=== PATIENT | male | born 1940 | race Caucasian/White ===

== ENCOUNTER 2022-04-06 12:22 | Observation (INO) ==
[2022-04-06] MEDS: SODIUM CHLORIDE 0.9% 1000ML 1,000 ML IV SCH ×2 (13:04→16:59)
[2022-04-06] MEDS ORDERED: ONDANSETRON INJ 2 MG/ML 2 ML VIAL IV STA (13:06)
[2022-04-06 13:13] LABS: Basophils # (auto) 0.02 K/uL (0-0.2); Basophils % (auto) 0.2 %; Eosinophils # (auto) 0.03 K/uL (0-0.50); Eosinophils % (auto) 0.3 %; Hematocrit (blood only) 37.7 % (40.1-51.0); Hemoglobin 13.1 g/dl (14.0-18.0); Immature Granulocytes # (auto) 0.04 K/uL (0.00-0.02); Immature Granulocytes % (auto) 0.4 %; Lymphocytes # (auto) 0.62 K/uL (1.2-3.4); Lymphocytes % (auto) 6.6 %; Mean Corpuscular Hemoglobin 38.2 pg (25.0-34.0); Mean Corpuscular Hgb Conc 34.7 g/dL (32.0-36.0); Mean Corpuscular Volume 109.9 fL (80.0-100.0); Monocytes # (auto) 0.36 K/uL (0.24-0.82); Monocytes % (auto) 3.9 %; Neutrophils # (auto) 8.27 K/uL (1.4-6.5); Neutrophils % (auto) 88.6 %; Platelet Count 193 K/uL (130-400); RDW Coefficient of Variation 14.1 % (11.5-14.5); RDW Standard Deviation 57.3 fL (36.4-46.3); Red Blood Count 3.43 M/uL (4.63-6.08); White Blood Count 9.34 K/ul (4.8-10.8)
--- NOTE | 2022-04-06 13:25 | XRay Report ---
XR chest 1V portable HISTORY: weakness COMPARISON: None. FINDINGS: No pneumothorax. No pleural effusions. The cardiac silhouette is top normal in size. There is a right jugular Port-A-Cath which terminates in the SVC. The right lung is clear. No focal lung co nsolidations to suggest a pneumonia. No evidence for pulmonary edema. Small linear scarlike density n oted within the left midlung zone. Symmetric nodular densities within the lower lung zones are consis tent with nipple shadows. IMPRESSION: No acute process. ACT 112: Negative or not required by law. Electronically signed by: Tuan Roque M.D. 04/06/2022 1:24 PM
[2022-04-06 13:35] LABS: Alanine Aminotransferase 31 U/L (7-52); Albumin Globulin Ratio 1.2 (0.9-2); Albumin Level 3.6 gm/dl (3.4-5.0); Alkaline Phosphatase 123 U/L (34-104); Anion Gap 12 (3-11); Aspartate Aminotransferase 25 U/L (13-39); BUN Creatinine Ratio 14.6 (10-20); Bilirubin,Total 0.8 mg/dl (0.2-1.0); Blood Urea Nitrogen 12 mg/dl (6-23); Calcium 8.8 mg/dl (8.5-10.1); Carbon Dioxide 24 mmol/L (21-32); Chloride 105 mmol/L (98-107); Est GFR (African American) 95.4 ml/min; Est GFR (Non-African American) 82.4 ml/min; Globulin 2.9 gm/dl (2.5-4.0); Glucose 247 mg/dl (70-99(Fasting)); Potassium 3.4 mmol/L (3.5-5.1); Sodium 141 mmol/L (136-145); Total Protein 6.5 gm/dl (6.0-8.3)
[2022-04-06 13:38] LABS: Troponin I High Sensitivity 19.1 pg/ml (0-20)
[2022-04-06] MEDS ORDERED: MECLIZINE HCL 25 MG TAB PO STA (13:44)
[2022-04-06] MEDS ORDERED: MIDAZOLAM HCL 1 MG/ML 2ML VIAL IV STA (13:44)
[2022-04-06 13:50] LABS: Influenza A virus by PCR Negative (Neg); Influenza B virus by PCR Negative (Neg); RSV by PCR Negative (Neg); SARS CoV2 RNA(COVID-19) Ceph NEGATIVE (Negative)
[2022-04-06] MEDS ORDERED: OPTIRAY 320 500ml IV ONE (14:05)
--- NOTE | 2022-04-06 14:29 | CT Scan Report ---
HEAD & NECK CTA HISTORY: vertigo, dizziness, ? stroke. hx of colon ca TECHNIQUE: Multiaxial CT images of the head were performed both before and after the intravenous admi nistration of contrast to evaluate the major cerebral vessels. Multiaxial CT images of the neck were also performed following the intravenous administration of contrast to evaluate the major cervical ve ssels. Maximum intensity projection images were also obtained. A dose lowering technique was utilized adhering to the principles of ALARA. COMPARISON: None. FINDINGS: Head CT: There is no mass, hematoma, midline shift, or acute infarct. Mucosal thickening and a small fluid level within the left maxillary sinus resulting in near complete opacification. Small fluid lev els within the sphenoid sinuses. The mastoid air cells are clear. The calvarium and skull base are in tact. Head CTA: Visualized intracranial internal carotid arteries, distal vertebral arteries, and basilar a rtery are widely patent. There is no significant stenosis, occlusion, or aneurysm seen within the carmen ateral ACAs, MCAs, or aerospace products sales engineer. The major dural venous sinuses appear patent. Neck CTA: The aortic arch and proximal great vessels are widely patent. There is no significant sten osis, occlusion, or dissection identified within the bilateral common carotid, internal carotid, or v ertebral arteries. Scattered irregular nodule seen within the lung apices some which demonstrate cent ral cavitation. Dominant nodule within the left upper lobe measures 12 mm. This favors metastatic dis ease. No pneumothorax. Partially visualized right jugular Port-A-Cath is noted. Mild calcified plaque within the bilateral carotid bifurcations. IMPRESSION: 1. No significant stenosis, occlusion, or aneurysm within the [place]. 2. No significant stenosis, occlusion, or dissection identified within the carotid or vertebral arter ies. 3. No abnormal enhancement or intracranial masses identified. 4. Paranasal sinus disease as described above. 5. Multiple pulmonary nodules likely consistent with metastatic disease. ACT 112: Negative or not required by law. Electronically signed by: Tuan Roque M.D. 04/06/2022 2:27 PM
--- NOTE | 2022-04-06 14:29 | CT Scan Report ---
HEAD & NECK CTA HISTORY: vertigo, dizziness, ? stroke. hx of colon ca TECHNIQUE: Multiaxial CT images of the head were performed both before and after the intravenous admi nistration of contrast to evaluate the major cerebral vessels. Multiaxial CT images of the neck were also performed following the intravenous administration of contrast to evaluate the major cervical ve ssels. Maximum intensity projection images were also obtained. A dose lowering technique was utilized adhering to the principles of ALARA. COMPARISON: None. FINDINGS: Head CT: There is no mass, hematoma, midline shift, or acute infarct. Mucosal thickening and a small fluid level within the left maxillary sinus resulting in near complete opacification. Small fluid lev els within the sphenoid sinuses. The mastoid air cells are clear. The calvarium and skull base are in tact. Head CTA: Visualized intracranial internal carotid arteries, distal vertebral arteries, and basilar a rtery are widely patent. There is no significant stenosis, occlusion, or aneurysm seen within the carmen ateral ACAs, MCAs, or offset assistant press operator. The major dural venous sinuses appear patent. Neck CTA: The aortic arch and proximal great vessels are widely patent. There is no significant sten osis, occlusion, or dissection identified within the bilateral common carotid, internal carotid, or v ertebral arteries. Scattered irregular nodule seen within the lung apices some which demonstrate cent ral cavitation. Dominant nodule within the left upper lobe measures 12 mm. This favors metastatic dis ease. No pneumothorax. Partially visualized right jugular Port-A-Cath is noted. Mild calcified plaque within the bilateral carotid bifurcations. IMPRESSION: 1. No significant stenosis, occlusion, or aneurysm within the [place]. 2. No significant stenosis, occlusion, or dissection identified within the carotid or vertebral arter ies. 3. No abnormal enhancement or intracranial masses identified. 4. Paranasal sinus disease as described above. 5. Multiple pulmonary nodules likely consistent with metastatic disease. ACT 112: Negative or not required by law. Electronically signed by: Tuan Roque M.D. 04/06/2022 2:27 PM
[2022-04-06 14:50] LABS: Appearance Urine Clear (Clear); Bacteria Urine Automated Negative (Negative); Bilirubin Urine Negative (Negative); Blood Urine Negative (Negative); Cast Urine Automated 0 /lpf (0-5); Color Urine Yellow; Epithelial Cell Urine Auto 0-5 /lpf (0-5); Glucose Urine UA 3+ (Negative); Ketones Urine Trace (Negative); Leukocyte Esterase Urine Negative (Negative); Nitrite Urine Negative (Negative); Protein Urine Trace (Negative); RBC Urine Automated 0-4 /hpf (0-4); Specific Gravity Urine 1.019 (1.000-1.030); Urobilinogen Urine Negative (Negative); WBC Urine Automated 0 /hpf (0-5)
--- NOTE | 2022-04-06 15:08 | History & Physical Report ---
Date of Service April 06, 2022 Assessment & Plan (1) Dizziness: Plan: Patient presents with dizziness without vertiginous component however he has abnormal cardiac rhythm during the events here in the ER. He dizziness did improve with meclizine and midazolam. (2) Cardiac conduction disorder: Plan: Patient has an abnormal EKG which gives flavors of Mobitz 2. Given the fact that dizziness is initial event patient be observed in our facility with cardiology consultation. TSH is checked and is normal Lyme titers pending on presentation Patient only mild hypokalemic this will be repleted magnesium will also be checked Patient is also on nifedipine which will be held. (3) Diabetes: Plan: Patient stepping on glipizide metformin and Tradjenta patient be on a regular diet by his request Home medications will be continued if glucoses are significantly out of the ordinary remains the sliding scale. 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 Patient had an apparent cardiac rhythm which looks almost like Mobitz 2 on presentation. Patient's symptoms are described as a spinning sensation that occurred after he got up out of bed. They were improved with meclizine and midazolam. Patient had imaging of his brain and neck with CT angiography without evidence of obstruction or stroke. 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 Patient is also diabetic. Patient states he is never any cardiac issues in the past denies any recent tick bites or Lyme infection Allergies Allergy/AdvReac Type Severity Reaction Status Date / Time morphine AdvReac Severe SEVERE Verified 04/06/22 15:24 CONFUSION FOLATE CONTAINING PRODUCTS AdvReac Unknown CONTRAINDICATED Uncoded 04/06/22 15:24 WITH CHEMO DRUG Home Medications Medication Instructions Recorded Confirmed Type allopurinol 300 mg tablet 150 mg PO QAM 04/06/22 04/06/22 History benzonatate 100 mg capsule 100 mg PO TID PRN Cough 04/06/22 04/06/22 History canagliflozin 100 mg tablet 100 mg PO DAILYBB 04/06/22 04/06/22 History (Invokana) glipizide 5 mg tablet, extended 5 mg PO DAILY PRN BSG >200. 04/06/22 04/06/22 History release 24 hr irbesartan 300 mg tablet 300 mg PO QAM 04/06/22 04/06/22 History linagliptin 5 mg tablet 5 mg PO QAM 04/06/22 04/06/22 History nifedipine 60 mg tablet,extended 60 mg PO QPM 04/06/22 04/06/22 History release 24 hr nystatin 100,000 unit/mL oral 5 ml PO BID 04/06/22 04/06/22 History suspension potassium chloride 20 mEq 20 meq PO QPM 04/06/22 04/06/22 History tablet,extended release(part/cryst) pravastatin 40 mg tablet 40 mg PO QPM 04/06/22 04/06/22 History Past Med/Surg History Medical History (Updated 04/06/22 @ 15:49 by Migue Morris MD) Dyslipidemia Gout Social History Smoking Status: Former smoker Tobacco Type: Cigarettes Feels Safe at Home: Yes Review of Systems Review of Systems: Mild distress and fatigue vertigo since resolved no headache, no visual changes no speech or swallowing issues no chest pain, pressure or palpitations no shortness of breath, cough or wheezes no abdominal pain, nausea or vomiting, diarrhea or constipation no dysuria, hematuria or frequency no focal joint pain or swelling no back pain, CVA tenderness or radicular pain no bruising, bleeding or rashes no focal signs of weakness or numbness or altered sensation no complaints of anxiety or depression.. Physical Exam Physical Exam: The patient appeared well nourished and normally developed. Vital signs as documented. Head exam is normocephalic atraumatic Neck is without JVD, thyromegaly, or carotid bruits. No lymphadenopathy Lungs are clear to auscultation, no focal loss of breath sounds Mediport in place at the right upper chest Cardiac exam, Rhythm is regular.. No murmurs, rubs or gallops. Abdominal exam reveals normal bowel sounds, soft non tender, no masses Extremities are nonedematous and both pedal pulses are present Neurologic exam is alert and oriented, no focal loss of strength or sensation symptoms not reproducible with sitting upright Skin is without bruises or rashes Psychologically is without concerns for anxiety or depression.. Results & Data Results & Data ([facility]) Vital Signs (Past 12 Hours) Vital Signs Pulse Resp BP Pulse Ox O2 Del Method 04/06/22 13:50 51 L 18 94 04/06/22 13:40 48 L 17 93 04/06/22 13:31 48 L 17 92 04/06/22 13:31 49 L 20 152/59 H 96 Room Air 04/06/22 13:01 48 L 14 162/63 H 96 Room Air 04/06/22 13:05 97 Room Air 04/06/22 12:23 52 L 20 139/52 L 98 Room Air Diagnostic Findings Chest X-Ray 04/06/22 12:41 XR chest 1V portable HISTORY: weakness COMPARISON: None. FINDINGS: No pneumothorax. No pleural effusions. The cardiac silhouette is top normal in size. There is a right jugular Port-A-Cath which terminates in the SVC. The right lung is clear. No focal lung consolidations to suggest a pneumonia. No evidence for pulmonary edema. Small linear scarlike density noted within the left midlung zone. Symmetric nodular densities within the lower lung zones are consistent with nipple shadows. IMPRESSION: No acute process. ACT 112: Negative or not required by law. Electronically signed by: Tuan Roque M.D. 04/06/2022 1:24 PM Head CTA 04/06/22 13:44 HEAD & NECK CTA HISTORY: vertigo, dizziness, ? stroke. hx of colon ca TECHNIQUE: Multiaxial CT images of the head were performed both before and after the intravenous administration of contrast to evaluate the major cerebral vessels. Multiaxial CT images of the neck were also performed following the intravenous administration of contrast to evaluate the major cervical vessels. Maximum intensity projection images were also obtained. A dose lowering technique was utilized adhering to the principles of ALARA. COMPARISON: None. FINDINGS: Head CT: There is no mass, hematoma, midline shift, or acute infarct. Mucosal thickening and a small fluid level within the left maxillary sinus resulting in near complete opacification. Small fluid levels within the sphenoid sinuses. The mastoid air cells are clear. The calvarium and skull base are intact. Head CTA: Visualized intracranial internal carotid arteries, distal vertebral arteries, and basilar artery are widely patent. There is no significant stenosis, occlusion, or aneurysm seen within the bilateral ACAs, MCAs, or software product manager. The major dural venous sinuses appear patent. Neck CTA: The aortic arch and proximal great vessels are widely patent. There is no significant stenosis, occlusion, or dissection identified within the bilateral common carotid, internal carotid, or vertebral arteries. Scattered irregular nodule seen within the lung apices some which demonstrate central cavitation. Dominant nodule within the left upper lobe measures 12 mm. This favors metastatic disease. No pneumothorax. Partially visualized right jugular Port-A-Cath is noted. Mild calcified plaque within the bilateral carotid bifurcations. IMPRESSION: 1. No significant stenosis, occlusion, or aneurysm within the [place]. 2. No significant stenosis, occlusion, or dissection identified within the carotid or vertebral arteries. 3. No abnormal enhancement or intracranial masses identified. 4. Paranasal sinus disease as described above. 5. Multiple pulmonary nodules likely consistent with metastatic disease. ACT 112: Negative or not required by law. Electronically signed by: Tuan Roque M.D. 04/06/2022 2:27 PM Neck CTA 04/06/22 13:44 HEAD & NECK CTA HISTORY: vertigo, dizziness, ? stroke. hx of colon ca TECHNIQUE: Multiaxial CT images of the head were performed both before and after the intravenous administration of contrast to evaluate the major cerebral vessels. Multiaxial CT images of the neck were also performed following the intravenous administration of contrast to evaluate the major cervical vessels. Maximum intensity projection images were also obtained. A dose lowering technique was utilized adhering to the principles of ALARA. COMPARISON: None. FINDINGS: Head CT: There is no mass, hematoma, midline shift, or acute infarct. Mucosal thickening and a small fluid level within the left maxillary sinus resulting in near complete opacification. Small fluid levels within the sphenoid sinuses. The mastoid air cells are clear. The calvarium and skull base are intact. Head CTA: Visualized intracranial internal carotid arteries, distal vertebral arteries, and basilar artery are widely patent. There is no significant stenosi s, occlusion, or aneurysm seen within the bilateral ACAs, MCAs, or software product manager. The major dural venous sinuses appear patent. Neck CTA: The aortic arch and proximal great vessels are widely patent. There is no significant stenosis, occlusion, or dissection identified within the bilateral common carotid, internal carotid, or vertebral arteries. Scattered irregular nodule seen within the lung apices some which demonstrate central cavitation. Dominant nodule within the left upper lobe measures 12 mm. This favors metastatic disease. No pneumothorax. Partially visualized right jugular Port-A-Cath is noted. Mild calcified plaque within the bilateral carotid bifurcations. IMPRESSION: 1. No significant stenosis, occlusion, or aneurysm within the [place]. 2. No significant stenosis, occlusion, or dissection identified within the carotid or vertebral arteries. 3. No abnormal enhancement or intracranial masses identified. 4. Paranasal sinus disease as described above. 5. Multiple pulmonary nodules likely consistent with metastatic disease. ACT 112: Negative or not required by law. Electronically signed by: Tuan Roque M.D. 04/06/2022 2:27 PM ECG Additional Comments: Abnormal EKG with hints of [place] PG Care Time/CCT Total # of Minutes Spent Total Time Spent with Patient: Total time spent is greater than 50% in coordination of care (as documented) at patient's floor/unit and/or counseling patient: Coding Level of Care Code INT OBSERVATION CARE 70M LVL 3 Diagnoses Dizziness R42 Cardiac conduction disorder I45.9 Diabetes E11.9 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 C18.9; C78.00 Hypertension I10 Gout M10.9 Dyslipidemia E78.5
--- NOTE | 2022-04-06 15:30 | Emergency Department Note ---
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 On presentation he was noted to be significantly bradycardic with heart rates dipping down to the 30s. His ECG showed a sinus rhythm with at least a first- degree AV block. There was frequent ectopy and determination between a possible second or third-degree block was difficult. Cardiac monitoring did reveal periods of PVC runs up to about 9 beats. Underlying P waves were noted but not coordinated. Patient was hydrated and given Zofran. His CBC was unremarkable except for a mild anemia. Chemistry panel, troponin or also unremarkable except for a mildly elevated glucose. Chest x-ray was negative. COVID, flu, and RSV testing were negative. Due to the symptoms the patient was given oral meclizine as well as a dose of IV Versed. He was sent for CT angiography and CT imaging of the head and neck. He did not have any findings consistent with vessel occlusion, stroke, or metastatic disease with in the head. Metastatic disease was seen in the chest but this is a known problem for him. Patient was noted to have some sinus disease but was asymptomatic with that. On reassessment his dizziness and nausea were improved. He had less frequent issues with the bradycardia. I did review his case with Dr. Bo of cardiology. He agreed that the ECG was difficult to determine but felt that there was an underlying conduction disorder present. I suspect that this may be exacerbated by vagal response secondary to the nausea and severe dizziness. He felt that that was reasonable as well. He recommended monitoring in the hospital to further inv estigate the cardiac conduction. Consultation was placed with the [facility] hospitalist service. History, presentation, diagnostics and consultation with cardiology reviewed with Dr. Morris. Patient was evaluated in the ER for further management. After review of the information above and other included data, I feel the patient requires further evaluation in the hospital. Triage Nursing notes reviewed and agree them. Vital Signs: reviewed and remarkable for bradycardia Prior /Outside records reviewed: none Differential diagnosis: Benign positional vertigo, dehydration, hypovolemia, anemia, tumor, infection, hypoglycemia, electrolyte abnormalities, cardiac sources, intracerebral event, toxicologic, neurologic, as well as other pathologies. Diagnostics, as interpreted by me: ECG: Twelve-lead ECG reveals sinus bradycardia first-degree block and frequent PVCs and PACs at 57 bpm. Possible second-degree versus transient third-degree block. Cardiac Monitoring: Cardiac monitoring ordered by me: The patient was placed on continuous cardiac monitoring and observed. It revealed sinus bradycardia with runs of consecutive PVCs and occasional heart block. Medical decision rules: none Imaging studies: Chest x-ray. Findings: A chest x-ray was performed and revealed no pneumothorax, effusion, infiltrate, pulmonary edema, free air under the diaphragm, or wide mediastinum. Impression: No acute disease. Head CT and CT chest as above. I refer you to the EMR for further details. HPI: The patient is a 81year old male who presents to the Emergency Room with complaints of feeling weak and dizzy. This started this morning and is persisting. The patient also notes the following associated symptoms, nausea and vomiting. The patient has found no relieving factors. Current pain is rated as 0/10. Patient has a history of metastatic colon cancer to the lungs. Denies any recent trauma. No sick contacts. Last chemo was 2 weeks ago. Pt denies LOC, headache, fevers, chills, diaphoresis, visual changes, neck pain, chest pain, breathing difficulties, abdominal pain, back pain, melena, hematoch ezia, urinary symptoms, numbness, lymphadenopathy, rash, or other complaints. PAST MEDICAL HISTORY: See Below, colon cancer PAST SURGICAL HISTORY: See Below, Mediport SOCIAL HISTORY: See Below, HOME MEDICATIONS: See Below ALLERGIES: See Below VITALS: See Below PHYSICAL EXAMINATION: GENERAL: Awake, alert, well-appearing, in no distress HENT: Normocephalic, atraumatic. Oropharynx unremarkable. EYES: Normal conjunctiva. Sclera non-icteric. NECK: Inspection normal. Non-tender. Supple. No nuchal rigidity. FROM. No masses. RESPIRATORY: Clear to auscultation. No wheezes. No rales. Normal respiratory effort. CARDIAC: Normal rate. Normal rhythm. No murmurs. No rubs. Extremities warm and well perfused. Pulses equal. No JVD. GI: Soft, non-distended. No tenderness to palpation. No rebound or guarding. No masses. RECTAL: Deferred. MUSCULOSKELETAL: Atraumatic. Chest examination reveals no tenderness. The back is symmetrical on inspection without obvious abnormality. There is no CVA tenderness to palpation. No joint edema. LOWER EXTREMITIES: Calves are equal size bilaterally and non-tender. No edema. No discoloration. NEURO: Normal sensorium. No sensory or motor deficits noted. SKIN: No rash or jaundice noted. Past Med/Surg History Medical History (Updated 04/06/22 @ 15:49 by Migue Morris MD) Dyslipidemia Gout Social History Smoking Status: Former smoker Tobacco Type: Cigarettes Hx Alcohol Use: No Hx Substance Use: No Preferred Language: Syriac Communication Ability: Effective Kitchen Steward/Stewardess Required: No Beliefs That Will Affect Care: None Current Living Situation: Spouse Other Information That Helps Us Care for You: No Feels Safe at Home: Yes Safety Concerns: Feels Safe At This Time Assistive Devices: CPAP and Glasses Allergies Allergies Allergy/AdvReac Type Severity Reaction Status Date / Time morphine AdvReac Severe SEVERE Verified 04/06/22 15:24 CONFUSION FOLATE CONTAINING PRODUCTS AdvReac Unknown CONTRAINDICATED Uncoded 04/06/22 15:24 WITH CHEMO DRUG Home Meds Home Medications Medication Instructions Recorded Confirmed allopurinol 300 mg tablet 150 mg PO QAM 04/06/22 04/06/22 benzonatate 100 mg capsule 100 mg PO TID PRN Cough 04/06/22 04/06/22 canagliflozin 100 mg tablet 100 mg PO DAILYBB 04/06/22 04/06/22 (Invokana) glipizide 5 mg tablet, extended 5 mg PO DAILY PRN BSG >200. 04/06/22 04/06/22 release 24 hr irbesartan 300 mg tablet 300 mg PO QAM 04/06/22 04/06/22 linagliptin 5 mg tablet 5 mg PO QAM 04/06/22 04/06/22 nifedipine 60 mg tablet,extended 60 mg PO QPM 04/06/22 04/06/22 release 24 hr nystatin 100,000 unit/mL oral 5 ml PO BID 04/06/22 04/06/22 suspension potassium chloride 20 mEq 20 meq PO QPM 04/06/22 04/06/22 tablet,extended release(part/cryst) pravastatin 40 mg tablet 40 mg PO QPM 04/06/22 04/06/22 Results & Data (ED) Vital Signs Vital Signs - 24 hr 04/06/22 12:23 04/06/22 13:05 04/06/22 13:01 Pulse Rate 52 L 48 L Pulse Rate from SpO2 Sensor Respiratory Rate 20 14 Blood Pressure 139/52 L 162/63 H Blood Pressure Mean 81 96 Pulse Oximetry 98 97 96 Oxygen Delivery Method Room Air Room Air Room Air Sepsis Recent Fever Within 48 Hours No Sepsis New/Unexplained Change in Mental Status N/A Sepsis Action Taken by Nursing No Action Required 04/06/22 13:31 04/06/22 13:31 04/06/22 13:40 Pulse Rate 49 L 48 L 48 L Pulse Rate from SpO2 Sensor 49 L 49 L Respiratory Rate 20 17 17 Blood Pressure 152/59 H Blood Pressure Mean 90 Pulse Oximetry 96 92 93 Oxygen Delivery Method Room Air Sepsis Recent Fever Within 48 Hours Sepsis New/Unexplained Change in Mental Status Sepsis Action Taken by Nursing 04/06/22 13:50 04/06/22 14:31 04/06/22 15:01 Pulse Rate 51 L 47 L 52 L Pulse Rate from SpO2 Sensor 53 L Respiratory Rate 18 16 18 Blood Pressure 136/67 168/71 H Blood Pressure Mean 90 103 Pulse Oximetry 94 93 96 Oxygen Delivery Method Room Air Room Air Sepsis Recent Fever Within 48 Hours Sepsis New/Unexplained Change in Mental Status Sepsis Action Taken by Nursing Laboratory Data Result diagrams: 04/06/22 13:00 04/06/22 13:00 Lab Results 04/06/22 04/06/22 04/06/22 Range/Units 12:27 12:50 13:00 WBC 9.34 (4.8-10.8) K/ul RBC 3.43 L (4.63-6.08) M/uL Hgb 13.1 L (14.0-18.0) g/dl Hct 37.7 L (40.1-51.0) % MCV 109.9 H (80.0-100.0) fL MCH 38.2 H (25.0-34.0) pg MCHC 34.7 (32.0-36.0) g/dL RDW Std Deviation 57.3 H (36.4-46.3) fL RDW Coeff of [place]bin 14.1 (11.5-14.5) % Plt Count 193 (130-400) K/uL MPV 10.0 (9.4-12.4) fL Immature Gran % (Auto) 0.4 % Neut % (Auto) 88.6 % Lymph % (Auto) 6.6 % [place] % (Auto) 3.9 % Eos % (Auto) 0.3 % Baso % (Auto) 0.2 % Neut # (Auto) 8.27 H (1.4-6.5) K/uL Lymph # (Auto) 0.62 L (1.2-3.4) K/uL [place] # (Auto) 0.36 (0.24-0.82) K/uL Eos # (Auto) 0.03 (0-0.50) K/uL Baso # (Auto) 0.02 (0-0.2) K/uL Immature Gran # (Auto) 0.04 H (0.00-0.02) K/uL Sodium (136-145) mmol/L Potassium (3.5-5.1) mmol/L Chloride (98-107) mmol/L Carbon Dioxide (21-32) mmol/L Anion Gap (3-11) BUN (6-23) mg/dl Creatinine (0.6-1.4) mg/dl Est Cr Clr Drug Dosing Est GFR ( Amer) ml/min Est GFR (Non-Af Amer) ml/min BUN/Creatinine Ratio (10-20) Glucose (70-99(Fasting)) mg/dl POC Glucose 221 H (70-99) mg/dl Calcium (8.5-10.1) mg/dl Magnesium (1.7-2.4) mg/dl Total Bilirubin (0.2-1.0) mg/dl AST (13-39) U/L ALT (7-52) U/L Alkaline Phosphatase (34-104) U/L Troponin I High Sens (0-20) pg/ml Total Protein (6.0-8.3) gm/dl Albumin (3.4-5.0) gm/dl Globulin (2.5-4.0) gm/dl Albumin/Globulin Ratio (0.9-2) TSH (0.300-4.500) uIu/ml Urine Color Urine Appearance (Clear) Urine pH (4.5-7.5) Ur Specific [place]rill (1.000-1.030) Urine Protein (Negative) Urine Glucose (UA) (Negative) Urine Ketones (Negative) Urine Blood (Negative) Urine Nitrite (Negative) Urine Bilirubin (Negative) Urine Urobilinogen (Negative) Ur Leukocyte Esterase (Negative) Urine WBC (Auto) (0-5) /hpf Urine RBC (Auto) (0-4) /hpf U Hyaline Cast (Auto) (0-5) /lpf U Epithel Cells (Auto) (0-5) /lpf Urine Bacteria (Auto) (Negative) SARS-CoV-2 (PCR) NEGATIVE (Negative) Influenza Type A (PCR) Negative (Neg) Influenza Type B (PCR) Negative (Neg) RSV (RT-PCR) Negative (Neg) 04/06/22 04/06/22 04/06/22 Range/Units 13:00 13:00 13:00 WBC (4.8-10.8) K/ul RBC (4.63-6.08) M/uL Hgb (14.0-18.0) g/dl Hct (40.1-51.0) % MCV (80.0-100.0) fL MCH (25.0-34.0) pg MCHC (32.0-36.0) g/dL RDW Std Deviation (36.4-46.3) fL RDW Coeff of Corbin (11.5-14.5) % Plt Count (130-400) K/uL MPV (9.4-12.4) fL Immature Gran % (Auto) % Neut % (Auto) % Lymph % (Auto) % [place] % (Auto) % Eos % (Auto) % Baso % (Auto) % Neut # (Auto) (1.4-6.5) K/uL Lymph # (Auto) (1.2-3.4) K/uL [place] # (Auto) (0.24-0.82) K/uL Eos # (Auto) (0-0.50) K/uL Baso # (Auto) (0-0.2) K/uL Immature Gran # (Auto) (0.00-0.02) K/uL Sodium 141 (136-145) mmol/L Potassium 3.4 L (3.5-5.1) mmol/L Chloride 105 (98-107) mmol/L Carbon Dioxide 24 (21-32) mmol/L Anion Gap 12 H (3-11) BUN 12 (6-23) mg/dl Creatinine 0.82 (0.6-1.4) mg/dl Est Cr Clr Drug Dosing Not Reportable Est GFR ( Amer) 95.4 ml/min Est GFR (Non-Af Amer) 82.4 ml/min BUN/Creatinine Ratio 14.6 (10-20) Glucose 247 H (70-99(Fasting)) mg/dl POC Glucose (70-99) mg/dl Calcium 8.8 (8.5-10.1) mg/dl Magnesium 1.9 (1.7-2.4) mg/dl Total Bilirubin 0.8 (0.2-1.0) mg/dl AST 25 (13-39) U/L ALT 31 (7-52) U/L Alkaline Phosphatase 123 H (34-104) U/L Troponin I High Sens 19.1 (0-20) pg/ml Total Protein 6.5 (6.0-8.3) gm/dl Albumin 3.6 (3.4-5.0) gm/dl Globulin 2.9 (2.5-4.0) gm/dl Albumin/Globulin Ratio 1.2 (0.9-2) TSH 1.914 (0.300-4.500) uIu/ml Urine Color Urine Appearance (Clear) Urine pH (4.5-7.5) Ur Specific Sherrill (1.000-1.030) Urine Protein (Negative) Urine Glucose (UA) (Negative) Urine Ketones (Negative) Urine Blood (Negative) Urine Nitrite (Negative) Urine Bilirubin (Negative) Urine Urobilinogen (Negative) Ur Leukocyte Esterase (Negative) Urine WBC (Auto) (0-5) /hpf Urine RBC (Auto) (0-4) /hpf U Hyaline Cast (Auto) (0-5) /lpf U Epithel Cells (Auto) (0-5) /lpf Urine Bacteria (Auto) (Negative) SARS-CoV-2 (PCR) (Negative) Influenza Type A (PCR) (Neg) Influenza Type B (PCR) (Neg) RSV (RT-PCR) (Neg) 04/06/22 Range/Units 14:05 WBC (4.8-10.8) K/ul RBC (4.63-6.08) M/uL Hgb (14.0-18.0) g/dl Hct (40.1-51.0) % MCV (80.0-100.0) fL MCH (25.0-34.0) pg MCHC (32.0-36.0) g/dL RDW Std Deviation (36.4-46.3) fL RDW Coeff of Corbin (11.5-14.5) % Plt Count (130-400) K/uL MPV (9.4-12.4) fL Immature Gran % (Auto) % Neut % (Auto) % Lymph % (Auto) % [place] % (Auto) % Eos % (Auto) % Baso % (Auto) % Neut # (Auto) (1.4-6.5) K/uL Lymph # (Auto) (1.2-3.4) K/uL [place] # (Auto) (0.24-0.82) K/uL Eos # (Auto) (0-0.50) K/uL Baso # (Auto) (0-0.2) K/uL Immature Gran # (Auto) (0.00-0.02) K/uL Sodium (136-145) mmol/L Potassium (3.5-5.1) mmol/L Chloride (98-107) mmol/L Carbon Dioxide (21-32) mmol/L Anion Gap (3-11) BUN (6-23) mg/dl Creatinine (0.6-1.4) mg/dl Est Cr Clr Drug Dosing Est GFR ( Amer) ml/min Est GFR (Non-Af Amer) ml/min BUN/Creatinine Ratio (10-20) Glucose (70-99(Fasting)) mg/dl POC Glucose (70-99) mg/dl Calcium (8.5-10.1) mg/dl Magnesium (1.7-2.4) mg/dl Total Bilirubin (0.2-1.0) mg/dl AST (13-39) U/L ALT (7-52) U/L Alkaline Phosphatase (34-104) U/L Troponin I High Sens (0-20) pg/ml Total Protein (6.0-8.3) gm/dl Albumin (3.4-5.0) gm/dl Globulin (2.5-4.0) gm/dl Albumin/Globulin Ratio (0.9-2) TSH (0.300-4.500) uIu/ml Urine Color Yellow Urine Appearance Clear (Clear) Urine pH 6.0 (4.5-7.5) Ur Specific Sherrill 1.019 (1.000-1.030) Urine Protein Trace H (Negative) Urine Glucose (UA) 3+ H (Negative) Urine Ketones Trace H (Negative) Urine Blood Negative (Negative) Urine Nitrite Negative (Negative) Urine Bilirubin Negative (Negative) Urine Urobilinogen Negative (Negative) Ur Leukocyte Esterase Negative (Negative) Urine WBC (Auto) 0 (0-5) /hpf Urine RBC (Auto) 0-4 (0-4) /hpf U Hyaline Cast (Auto) 0 (0-5) /lpf U Epithel Cells (Auto) 0-5 (0-5) /lpf Urine Bacteria (Auto) Negative (Negative) SARS-CoV-2 (PCR) (Negative) Influenza Type A (PCR) (Neg) Influenza Type B (PCR) (Neg) RSV (RT-PCR) (Neg) Administered Medications Enoxaparin Sodium (Enoxaparin Inj 40 Mg/0.4 Ml Syr) 40 mg SQ Q24H [facility] Stop: 05/06/22 16:29 Last Admin: 04/06/22 18:04 Dose: Not Given Documented By: MATHEW Sodium Chloride (Nss 1000ml) 1,000 mls @ 125 mls/hr IV .Q8H [facility] Stop: 05/06/22 12:44 Last Admin: 04/06/22 16:59 Dose: 125 mls/hr Documented By: Infusion: 04/06/22 16:59 Dose: 125 mls/hr Documented By: Admin: 04/06/22 13:04 Dose: 125 mls/hr Documented By: EMMIE Discontinued Medications Ioversol (Optiray 320 500ml) 114 ml IV ONCE ONE Stop: 04/06/22 14:06 Last Admin: 04/06/22 14:06 Dose: 114 ml Documented By: DULCE Meclizine HCl (Meclizine Hcl 25 Mg Tab) 25 mg PO NOW STA Stop: 04/06/22 13:45 Last Admin: 04/06/22 13:55 Dose: 25 mg Documented By: EMMIE Midazolam HCl (Midazolam Hcl 1 Mg/Ml 2ml Vial) 1 mg IV NOW STA Stop: 04/06/22 13:45 Last Admin: 04/06/22 14:00 Dose: Not Given Documented By: MMZ Ondansetron HCl (Ondansetron Inj 2 Mg/Ml 2 Ml Vial) 4 mg IV NOW STA Stop: 04/06/22 13:07 Last Admin: 04/06/22 13:11 Dose: 4 mg Documented By: NDW Potassium Chloride (Potassium Chloride Crtab 20 Meq Tabcr) 20 meq PO NOW STA Stop: 04/06/22 16:31 Last Admin: 04/06/22 16:59 Dose: 20 meq Documented By: [facility] Imaging Data Radiologist's Impression: Chest X-Ray 04/06/22 12:41 XR chest 1V portable HISTORY: weakness COMPARISON: None. FINDINGS: No pneumothorax. No pleural effusions. The cardiac silhouette is top normal in size. There is a right jugular Port-A-Cath which terminates in the SVC. The right lung is clear. No focal lung consolidations to suggest a pneumonia. No evidence for pulmonary edema. Small linear scarlike density noted within the left midlung zone. Symmetric nodular densities within the lower lung zones are consistent with nipple shadows. IMPRESSION: No acute process. ACT 112: Negative or not required by law. Electronically signed by: Tuan Roque M.D. 04/06/2022 1:24 PM Head CTA 04/06/22 13:44 HEAD & NECK CTA HISTORY: vertigo, dizziness, ? stroke. hx of colon ca TECHNIQUE: Multiaxial CT images of the head were performed both before and after the intravenous administration of contrast to evaluate the major cerebral vessels. Multiaxial CT images of the neck were also performed following the intravenous administration of contrast to evaluate the major cervical vessels. Maximum intensity projection images were also obtained. A dose lowering technique was utilized adhering to the principles of ALARA. COMPARISON: None. FINDINGS: Head CT: There is no mass, hematoma, midline shift, or acute infarct. Mucosal thickening and a small fluid level within the left maxillary sinus resulting in near complete opacification. Small fluid levels within the sphenoid sinuses. The mastoid air cells are clear. The calvarium and skull base are intact. Head CTA: Visualized intracranial internal carotid arteries, distal vertebral arteries, and basilar artery are widely patent. There is no significant stenosis, occlusion, or aneurysm seen within the bilateral ACAs, MCAs, or glue wheel operator. The major dural venous sinuses appear patent. Neck CTA: The aortic arch and proximal great vessels are widely patent. There is no significant stenosis, occlusion, or dissection identified within the bilateral common carotid, internal carotid, or vertebral arteries. Scattered irregular nodule seen within the lung apices some which demonstrate central cavitation. Dominant nodule within the left upper lobe measures 12 mm. This favors metastatic disease. No pneumothorax. Partially visualized right jugular Port-A-Cath is noted. Mild calcified plaque within the bilateral carotid bifurcations. IMPRESSION: 1. No significant stenosis, occlusion, or aneurysm within the [place] of [place]. 2. No significant stenosis, occlusion, or dissection identified within the carotid or vertebral arteries. 3. No abnormal enhancement or intracranial masses identified. 4. Paranasal sinus disease as described above. 5. Multiple pulmonary nodules likely consistent with metastatic disease. ACT 112: Negative or not required by law. Electronically signed by: Tuan Roque M.D. 04/06/2022 2:27 PM Neck CTA 04/06/22 13:44 HEAD & NECK CTA HISTORY: vertigo, dizziness, ? stroke. hx of colon ca TECHNIQUE: Multiaxial CT images of the head were performed both before and after the intravenous administration of contrast to evaluate the major cerebral vessels. Multiaxial CT images of the neck were also performed following the intravenous administration of contrast to evaluate the major cervical vessels. Maximum intensity projection images were also obtained. A dose lowering technique was utilized adhering to the principles of ALARA. COMPARISON: None. FINDINGS: Head CT: There is no mass, hematoma, midline shift, or acute infarct. Mucosal thickening and a small fluid level within the left maxillary sinus resulting in near complete opacification. Small fluid levels within the sphenoid sinuses. The mastoid air cells are clear. The calvarium and skull base are intact. Head CTA: Visualized intracranial internal carotid arteries, distal vertebral arteries, and basilar artery are widely patent. There is no significant stenosis, occlusion, or aneurysm seen within the bilateral ACAs, MCAs, or glue wheel operator. The major dural venous sinuses appear patent. Neck CTA: The aortic arch and proximal great vessels are widely patent. There is no significant stenosis, occlusion, or dissection identified within the bilateral common carotid, internal carotid, or vertebral arteries. Scattered irregular nodule seen within the lung apices some which demonstrate central cavitation. Dominant nodule within the left upper lobe measures 12 mm. This favors metastatic disease. No pneumothorax. Partially visualized right jugular Port-A-Cath is noted. Mild calcified plaque within the bilateral carotid bifurcations. IMPRESSION: 1. No significant stenosis, occlusion, or aneurysm within the [place] of [place]. 2. No significant stenosis, occlusion, or dissection identified within the carotid or vertebral arteries. 3. No abnormal enhancement or intracranial masses identified. 4. Paranasal sinus disease as described above. 5. Multiple pulmonary nodules likely consistent with metastatic disease. ACT 112: Negative or not required by law. Electronically signed by: Tuan Roque M.D. 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
[2022-04-06] MEDS ORDERED: POTASSIUM CHLORIDE CRTAB 20 MEQ TABCR PO STA (16:30)
[2022-04-06] MEDS ORDERED: LORazepam 2 MG/1 ML VIAL IV PRN (16:30)
[2022-04-06] MEDS ORDERED: ENOXAPARIN INJ 40 MG/0.4 ML SYR SQ SCH (16:30)
[2022-04-06] MEDS ORDERED: ACETAMINOPHEN 325 MG TAB PO PRN (16:30)
[2022-04-06] MEDS ORDERED: glipiZIDE ER 2.5 MG TABCR PO PRN (16:30)
[2022-04-06] MEDS ORDERED: ALUMINUM/MAGNESIUM SUSP 30 ML UDC PO PRN (16:30)
[2022-04-06] MEDS ORDERED: ONDANSETRON INJ 2 MG/ML 2 ML VIAL IV PRN (16:30)
[2022-04-06] MEDS ORDERED: MECLIZINE HCL 25 MG TAB PO PRN (16:30)
[2022-04-06 17:58] LABS: Lyme Ab IgG w/WB Rflx Negative (Negative); Lyme Ab IgM w/WB Rflx Negative (Negative)
[2022-04-06] MEDS: POTASSIUM CHLORIDE CRTAB 20 MEQ TABCR PO SCH (19:44)
[2022-04-06] MEDS ORDERED: PRAVASTATIN SOD 40 MG TAB PO SCH (21:00)
[2022-04-07] MEDS: SODIUM CHLORIDE 0.9% 1000ML 1,000 ML IV SCH (00:28)
[2022-04-07] MEDS ORDERED: HEPARIN 100 UNIT/ML 5ML FLUSH FLUSH PRN (02:53)
[2022-04-07 08:34] LABS: Estimated Average Glucose 154 mg/dl
[2022-04-07] MEDS ORDERED: LINAGLIPTIN 5 MG PO SCH (09:00)
[2022-04-07] MEDS ORDERED: NIFEdipine EXTENDED REL 30 MG TABCR PO SCH (09:00)
[2022-04-07] MEDS ORDERED: allopurinoL 300 MG TAB PO SCH (09:00)
[2022-04-07] MEDS ORDERED: IRBESARTAN 150 MG TAB PO SCH (09:00)
[2022-04-07] MEDS ORDERED: MECLIZINE 12.5 MG TAB PO SCH (09:00)
[2022-04-07] MEDS: POTASSIUM CHLORIDE CRTAB 20 MEQ TABCR PO SCH (10:07)
--- NOTE | 2022-04-07 11:02 | XCELERA ---
[id number]
--- NOTE | 2022-04-07 11:02 | Discharge Summary ---
Date of Service April 07, 2022 Admission HPI Per Admitting Provider 81-year-old male who is here visiting his family who presents with vertiginous symptoms and weakness. Patient had an apparent cardiac rhythm which looks almost like Mobitz 2 on presentation. Patient's symptoms are described as a spinning sensation that occurred after he got up out of bed. They were improved with meclizine and midazolam. Patient had imaging of his brain and neck with CT angiography without evidence of obstruction or stroke. 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 Patient is also diabetic. Patient states he is never any cardiac issues in the past denies any recent tick bites or Lyme infection Principal Diagnosis Acute labyrinthitis with vertigo, hypokalemia Discharge Exam General-alert and oriented x3, no fevers, no chills HEENT-head atraumatic and normocephalic, pupils equal and reactive to light, extraocular muscles intact Neck-no lymphadenopathy or thyromegaly, trachea midline Chest-clear to auscultation percussion. No rales wheezing or rhonchi Cardiac-regular rate and rhythm, normal S1 and S2 Abdomen-normal bowel sounds, nontender, no hepatosplenomegaly Extremities-no cyanosis, clubbing, or edema Neuro-cranial nerves II through XII intact, motor and sensory function within normal limits, strength symmetrical , no focal deficits Psych-normal affect, normal mood Discharge Data Allergies Allergy/AdvReac Type Severity Reaction Status Date / Time morphine AdvReac Severe SEVERE Verified 04/06/22 15:24 CONFUSION folic acid AdvReac Unknown folate Verified 04/07/22 08:59 products~CONTRAINDICATED WITH CHEMO DRUG Consultations 04/06/22 15:17 ED Decision to Admit Stat 04/06/22 16:30 Consult Cardiology Routine Ordered Studies 04/06/22 13:44 CT angio head wo/w Stat CT angio neck with con Stat Hospital Course (1) Dizziness: Now resolved. This appeared to be a vertigo issue probably from acute labyrinthitis. He is now on scheduled dosing of meclizine and this will continue until he is symptom-free. 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 Telemetry. Cardiology consultation appreciated. No change in medications at this time. Nifedipine was held on admission and has been restarted (3) Diabetes: Patient takes glipizide, metformin and Tradjenta. He requests a regular diet. 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 Supportive care (5) Hypertension: Nifedipine was held on admission but has been restarted. Continue Avapro. (6) Gout: Stable. Continue allopurinol. (7) Dyslipidemia: Heart healthy diet. Continue pravastatin. Plan Probably home today, April 07, if cleared by cardiology. Continue scheduled dosing of low-dose meclizine until asymptomatic. Total Time Total Time Spent Total Time Spent (In Minutes): 35 minutes Discharge Plan Discharge Items Patient Disposition: Home - Self-Care Reason For Visit: DIZZINESS Discharge Diagnosis: Acute labyrinthitis with vertigo, mild hypokalemia Activity: Resume your previous activity Non-emergency contact: Primary Care Provider Call non-emergency contact if: you have any medication questions and your symptoms worsen Follow-up/Referrals: PCP,NO [Primary Care Provider] - Diet: Regular Addtl Attending Provider Instructions: Take meclizine 3 times a day scheduled dosing until symptoms completely resolve Pending Studies at Discharge: No Stand-Alone Forms: My [facility] Giving Assistant, Smoking Cessation Medications and DC Order Prescriptions: New meclizine 12.5 mg Tablet 12.5 mg PO TID Qty: 20 0RF Continued nystatin 100,000 unit/mL suspension 5 ml PO BID Rx Instructions: STARTED 03/25/22 FOR 14 DAYS. WAS QID, THEN NOW BID PER SPOUSE pravastatin 40 mg Tablet 40 mg PO QPM glipizide 5 mg tablet extended release 24hr 5 mg PO DAILY PRN (Reason: BSG >200.) potassium chloride 20 mEq tablet,ER particles/crystals 20 meq PO QPM nifedipine 60 mg Tablet Extended Release 24hr 60 mg PO QPM benzonatate 100 mg capsule 100 mg PO TID PRN (Reason: Cough) allopurinol 300 mg Tablet 150 mg PO QAM irbesartan 300 mg Tablet 300 mg PO QAM linagliptin 5 mg Tablet 5 mg PO QAM Invokana 100 mg Tablet 100 mg PO DAILYBB Discharge Orders: Discharge Order (Routine); Ordered 04/07/22 Ordered By: Yves Sanchez/Other Patient Handouts: Managing Type 2 Diabetes Admission Data Admit Date/Time: 04/06/22 15:12 Attending Provider: Yvse Del Valle Admit Provider: Migue Morris Primary Care Provider: PCP,NO Other Providers: Migue Morris ; Alexi Bo Coding Level of Care Code D/C DAY MANAGEMENT >30 MINS Diagnoses Dizziness R42 Cardiac conduction disorder I45.9 Diabetes E11.9 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 C18.9; C78.00 Hypertension I10 Gout M10.9 Dyslipidemia E78.5
--- NOTE | 2022-04-07 11:10 | Cardiology Consultation ---
Date of Consultation April 07, 2022 Assessment & Plan (1) Bradycardia: (2) Cardiac conduction disorder: (3) Dizziness: (4) Valvular heart disease: Plan 1. Dizziness: His symptoms are consistent with vertigo. He was treated for vertigo with meclizine and benzodiazepines. His symptoms resolved. He generally does not have symptoms of dizziness or lightheadedness. He does not demonstrate exercise intolerance. No current symptoms despite persistent bradycardia. 2. Bradycardia: He has heart rates in the 40s to 50s most of the time. However, with ambulation his heart rate exceeded 100 beats per minute. No associated symptoms. Again, despite the persistent bradycardia overnight his presenting symptoms resolved. No clear correlation between bradycardia and any symptoms. 3. Mobitz 1 conduction: Monitoring him on telemetry reveals Mobitz 1 conduction on occasion. He has a 1st degree AV block at baseline. This would suggest AV omar rather than infra-Hisian disease. Again, no symptoms of conduction disease at this point. Heart rate increases appropriately with activity. No indication for permanent pacemaker at this time. 4. Valvular heart disease: Mild aortic regurgitation and [id number] mitral regurgitation. No symptoms. Preserved LV systolic function. This can be followed over time. History of Present Illness Reason for Consultation: Bradycardia, dizziness Requesting Physician: Alexandra Attending Physician: Yves Del Valle MD History of Present Illness The patient is an 81-year-old gentleman with a history of metastatic colon cancer who presented to the hospital yesterday with symptoms of severe dizziness and nausea. The patient states that yesterday morning when he awoke he had significant difficulty ambulating due to a sensation that the room was spinning. This was accompanied by significant nausea and vomiting when attempting to drink some orange juice. He presented to the emergency room with the symptoms and was administered both meclizine and a sedative. The symptoms gradually resolved and have not recurred since he has been in the hospital. He was noted to have an element of conduction disease in the emergency room was admitted overnight for observation and telemetry monitoring. The patient states that had 1 similar episode approximately 6 months ago. However, this was not nearly as severe resolved within 5 minutes. Both occasions he distinctly reports sensation that the room was spinning. He closes eyes to improve his symptoms. He did not feel as if he was going to pass out. He is an otherwise active individual. In the summertime he golfs regularly. Recently he was shoveling some snow and stacking some wood in his garage. He was able to perform these activities without significant limitation. He denies limiting dyspnea. He has no symptoms of chest pain. Denies any new exercise intolerance. Allergies Allergy/AdvReac Type Severity Reaction Status Date / Time morphine AdvReac Severe SEVERE Verified 04/06/22 15:24 CONFUSION folic acid AdvReac Unknown folate Verified 04/07/22 08:59 products~CONTRAINDICATED WITH CHEMO DRUG Home Medications Medication Instructions Recorded Confirmed Type allopurinol 300 mg tablet 150 mg PO QAM 04/06/22 04/06/22 History benzonatate 100 mg capsule 100 mg PO TID PRN Cough 04/06/22 04/06/22 History canagliflozin 100 mg tablet 100 mg PO DAILYBB 04/06/22 04/06/22 History (Invokana) glipizide 5 mg tablet, extended 5 mg PO DAILY PRN BSG >200. 04/06/22 04/06/22 History release 24 hr irbesartan 300 mg tablet 300 mg PO QAM 04/06/22 04/06/22 History linagliptin 5 mg tablet 5 mg PO QAM 04/06/22 04/06/22 History nifedipine 60 mg tablet,extended 60 mg PO QPM 04/06/22 04/06/22 History release 24 hr nystatin 100,000 unit/mL oral 5 ml PO BID 04/06/22 04/06/22 History suspension potassium chloride 20 mEq 20 meq PO QPM 04/06/22 04/06/22 History tablet,extended release(part/cryst) pravastatin 40 mg tablet 40 mg PO QPM 04/06/22 04/06/22 History meclizine 12.5 mg tablet 12.5 mg PO TID #20 tabs 04/07/22 Rx Patient History Medical History (Updated 04/07/22 @ 11:08 by Alexi Bo MD) Dyslipidemia Gout Social History Smoking Status: Former smoker Tobacco Type: Cigarettes Hx Alcohol Use: No Hx Substance Use: No Preferred Language: Macedonian Communication Ability: Effective Director Commercial Sales Required: No Beliefs That Will Affect Care: None Current Living Situation: Spouse Other Information That Helps Us Care for You: No Feels Safe at Home: Yes Safety Concerns: Feels Safe At This Time Assistive Devices: CPAP and Glasses Review of Systems Review of Systems: Per HPI. The patient has occasional dizziness and nausea immediately after receiving his chemotherapy which occurs every 2 weeks. Physical Exam Physical Exam: The patient is alert and oriented. Mood and affect appeared normal. He answered all questions appropriately. HEENT: Pupils are equal and reactive to light and accommodation. Extraocular movements are intact. The sclerae are anicteric. Neuro: Cranial nerves intact Neck: Patient's neck is supple. Lungs: Clear to auscultation bilaterally. He has good air movement without use of accessory muscles. No rales wheezes or rhonchi. Cardiac: Heart demonstrates a regularly irregular rhythm. Normal S1 and S2. No murmurs on examination. Pulses: The patient has palpable radial pulses bilaterally that are equal in intensity Extremities: There was no evidence of hypoperfusion. There is no cyanosis or clubbing. There is no edema. Skin: I did not appreciate any rashes on examination today. Results & Data ([facility]) Vital Signs (Past 12 Hours) Vital Signs Temp Pulse Resp BP Pulse Ox O2 Del Method 04/07/22 07:30 36.8 C 50 L 18 194/75 H 95 Room Air 04/07/22 03:39 36.9 C 60 16 160/56 H 97 Room Air 04/07/22 00:40 150/58 H 04/07/22 00:04 36.6 C 51 L 18 175/70 H 97 BiPAP Laboratory Results Abnormal Lab Results 04/06/22 04/06/22 04/06/22 12:27 12:50 13:00 WBC 9.34 RBC 3.43 L Hgb 13.1 L Hct 37.7 L MCV 109.9 H MCH 38.2 H MCHC 34.7 RDW Std Deviation 57.3 H RDW Coeff of Corbin 14.1 Plt Count 193 MPV 10.0 Immature Gran % (Auto) 0.4 Neut % (Auto) 88.6 Lymph % (Auto) 6.6 Baca % (Auto) 3.9 Eos % (Auto) 0.3 Baso % (Auto) 0.2 Neut # (Auto) 8.27 H Lymph # (Auto) 0.62 L Baca # (Auto) 0.36 Eos # (Auto) 0.03 Baso # (Auto) 0.02 Immature Gran # (Auto) 0.04 H Sodium Potassium Chloride Carbon Dioxide Anion Gap BUN Creatinine Est Cr Clr Drug Dosing Est GFR ( Amer) Est GFR (Non-Af Amer) BUN/Creatinine Ratio Glucose POC Glucose 221 H Estimat Average Glucose Hemoglobin A1c Calcium Magnesium Total Bilirubin AST ALT Alkaline Phosphatase Troponin I High Sens Total Protein Albumin Globulin Albumin/Globulin Ratio TSH Urine Color Urine Appearance Urine pH Ur Specific Leonardo Urine Protein Urine Glucose (UA) Urine Ketones Urine Blood Urine Nitrite Urine Bilirubin Urine Urobilinogen Ur Leukocyte Esterase Urine WBC (Auto) Urine RBC (Auto) U Hyaline Cast (Auto) U Epithel Cells (Auto) Urine Bacteria (Auto) Lyme Disease IgG Ab Lyme Disease IgM Ab SARS-CoV-2 (PCR) NEGATIVE Influenza Type A (PCR) Negative Influenza Type B (PCR) Negative RSV (RT-PCR) Negative 04/06/22 04/06/22 04/06/22 13:00 13:00 13:00 WBC RBC Hgb Hct MCV MCH MCHC RDW Std Deviation RDW Coeff of Corbin Plt Count MPV Immature Gran % (Auto) Neut % (Auto) Lymph % (Auto) Baca % (Auto) Eos % (Auto) Baso % (Auto) Neut # (Auto) Lymph # (Auto) Baca # (Auto) Eos # (Auto) Baso # (Auto) Immature Gran # (Auto) Sodium 141 Potassium 3.4 L Chloride 105 Carbon Dioxide 24 Anion Gap 12 H BUN 12 Creatinine 0.82 Est Cr Clr Drug Dosing Not Reportable Est GFR ( Amer) 95.4 Est GFR (Non-Af Amer) 82.4 BUN/Creatinine Ratio 14.6 Glucose 247 H POC Glucose Estimat Average Glucose 154 Hemoglobin A1c 7.0 H Calcium 8.8 Magnesium Total Bilirubin 0.8 AST 25 ALT 31 Alkaline Phosphatase 123 H Troponin I High Sens 19.1 Total Protein 6.5 Albumin 3.6 Globulin 2.9 Albumin/Globulin Ratio 1.2 TSH 1.914 Urine Color Urine Appearance Urine pH Ur Specific Leonardo Urine Protein Urine Glucose (UA) Urine Ketones Urine Blood Urine Nitrite Urine Bilirubin Urine Urobilinogen Ur Leukocyte Esterase Urine WBC (Auto) Urine RBC (Auto) U Hyaline Cast (Auto) U Epithel Cells (Auto) Urine Bacteria (Auto) Lyme Disease IgG Ab Lyme Disease IgM Ab SARS-CoV-2 (PCR) Influenza Type A (PCR) Influenza Type B (PCR) RSV (RT-PCR) 04/06/22 04/06/22 04/06/22 13:00 14:05 16:40 WBC RBC Hgb Hct MCV MCH MCHC RDW Std Deviation RDW Coeff of Corbin Plt Count MPV Immature Gran % (Auto) Neut % (Auto) Lymph % (Auto) Baca % (Auto) Eos % (Auto) Baso % (Auto) Neut # (Auto) Lymph # (Auto) Baca # (Auto) Eos # (Auto) Baso # (Auto) Immature Gran # (Auto) Sodium Potassium Chloride Carbon Dioxide Anion Gap BUN Creatinine Est Cr Clr Drug Dosing Est GFR ( Amer) Est GFR (Non-Af Amer) BUN/Creatinine Ratio Glucose POC Glucose 180 H Estimat Average Glucose Hemoglobin A1c Calcium Magnesium 1.9 Total Bilirubin AST ALT Alkaline Phosphatase Troponin I High Sens Total Protein Albumin Globulin Albumin/Globulin Ratio TSH Urine Color Yellow Urine Appearance Clear Urine pH 6.0 Ur Specific Leonardo 1.019 Urine Protein Trace H Urine Glucose (UA) 3+ H Urine Ketones Trace H Urine Blood Negative Urine Nitrite Negative Urine Bilirubin Negative Urine Urobilinogen Negative Ur Leukocyte Esterase Negative Urine WBC (Auto) 0 Urine RBC (Auto) 0-4 U Hyaline Cast (Auto) 0 U Epithel Cells (Auto) 0-5 Urine Bacteria (Auto) Negative Lyme Disease IgG Ab Lyme Disease IgM Ab SARS-CoV-2 (PCR) Influenza Type A (PCR) Influenza Type B (PCR) RSV (RT-PCR) 04/06/22 04/06/22 04/07/22 17:03 20:58 10:59 WBC RBC Hgb Hct MCV MCH MCHC RDW Std Deviation RDW Coeff of Corbin Plt Count MPV Immature Gran % (Auto) Neut % (Auto) Lymph % (Auto) Baca % (Auto) Eos % (Auto) Baso % (Auto) Neut # (Auto) Lymph # (Auto) Baca # (Auto) Eos # (Auto) Baso # (Auto) Immature Gran # (Auto) Sodium Potassium Chloride Carbon Dioxide Anion Gap BUN Creatinine Est Cr Clr Drug Dosing Est GFR ( Amer) Est GFR (Non-Af Amer) BUN/Creatinine Ratio Glucose POC Glucose 142 H 225 H Estimat Average Glucose Hemoglobin A1c Calcium Magnesium Total Bilirubin AST ALT Alkaline Phosphatase Troponin I High Sens Total Protein Albumin Globulin Albumin/Globulin Ratio TSH Urine Color Urine Appearance Urine pH Ur Specific Leonardo Urine Protein Urine Glucose (UA) Urine Ketones Urine Blood Urine Nitrite Urine Bilirubin Urine Urobilinogen Ur Leukocyte Esterase Urine WBC (Auto) Urine RBC (Auto) U Hyaline Cast (Auto) U Epithel Cells (Auto) Urine Bacteria (Auto) Lyme Disease IgG Ab Negative Lyme Disease IgM Ab Negative SARS-CoV-2 (PCR) Influenza Type A (PCR) Influenza Type B (PCR) RSV (RT-PCR) Diagnostic Findings Chest x-ray was obtained on admission and did not reveal any acute cardiopulmonary process A head and neck angiogram was performed at the time admission which did not reveal any significant stenoses or abnormalities other than known pulmonary nodules consistent with his metastatic cancer Echocardiogram was performed today which revealed preserved LV systolic function. Mild aortic regurgitation and [id number] mitral regurgitation. Moderate left atrial dilatation and moderate LVH.. ECG Additional Comments: EKG obtained this morning reveals sinus bradycardia and first-degree AV block. PG Care Time/CCT Total # of Minutes Spent Total Time Spent with Patient: Total time spent is greater than 50% in coordination of care (as documented) at patient's floor/unit and/or counseling patient: Coding Level of Care Code 59952 Initial Inpt Care Lvl 3 Diagnoses Bradycardia R00.1 Cardiac conduction disorder I45.9 Dizziness R42 Valvular heart disease I38
--- NOTE | 2022-04-07 11:50 | Discharge Summary ---
Date of Service April 07, 2022 Admission HPI Per Admitting Provider 81-year-old male who is here visiting his family who presents with vertiginous symptoms and weakness. Patient had an apparent cardiac rhythm which looks almost like Mobitz 2 on presentation. Patient's symptoms are described as a spinning sensation that occurred after he got up out of bed. They were improved with meclizine and midazolam. Patient had imaging of his brain and neck with CT angiography without evidence of obstruction or stroke. 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 Patient is also diabetic. Patient states he is never any cardiac issues in the past denies any recent tick bites or Lyme infection Principal Diagnosis Acute labyrinthitis with vertigo Discharge Data Allergies Allergy/AdvReac Type Severity Reaction Status Date / Time morphine AdvReac Severe SEVERE Verified 04/06/22 15:24 CONFUSION folic acid AdvReac Unknown folate Verified 04/07/22 08:59 products~CONTRAINDICATED WITH CHEMO DRUG Consultations 04/06/22 15:17 ED Decision to Admit Stat 04/06/22 16:30 Consult Cardiology Routine Ordered Studies 04/06/22 13:44 CT angio head wo/w Stat CT angio neck with con Stat Total Time Total Time Spent Total Time Spent (In Minutes): 35 minutes Discharge Plan Discharge Items Patient Disposition: Home - Self-Care Reason For Visit: DIZZINESS Discharge Diagnosis: Acute labyrinthitis with vertigo, mild hypokalemia Activity: Resume your previous activity Non-emergency contact: Primary Care Provider Call non-emergency contact if: you have any medication questions and your symptoms worsen Follow-up/Referrals: PCP,NO [Physician] - Diet: Regular Addtl Attending Provider Instructions: Take meclizine 3 times a day scheduled dosing until symptoms completely resolve Pending Studies at Discharge: No Stand-Alone Forms: My [employer], Smoking Cessation Medications and DC Order Prescriptions: New meclizine 12.5 mg Tablet 12.5 mg PO TID Qty: 20 0RF Continued nystatin 100,000 unit/mL suspension 5 ml PO BID Rx Instructions: STARTED 03/25/22 FOR 14 DAYS. WAS QID, THEN NOW BID PER SPOUSE pravastatin 40 mg Tablet 40 mg PO QPM glipizide 5 mg tablet extended release 24hr 5 mg PO DAILY PRN (Reason: BSG >200.) potassium chloride 20 mEq tablet,ER particles/crystals 20 meq PO QPM nifedipine 60 mg Tablet Extended Release 24hr 60 mg PO QPM benzonatate 100 mg capsule 100 mg PO TID PRN (Reason: Cough) allopurinol 300 mg Tablet 150 mg PO QAM irbesartan 300 mg Tablet 300 mg PO QAM linagliptin 5 mg Tablet 5 mg PO QAM Invokana 100 mg Tablet 100 mg PO DAILYBB Discharge Orders: Discharge Order (Routine); Ordered 04/07/22 Ordered By: Yves Sanchez/Other Patient Handouts: Managing Type 2 Diabetes Admission Data Admit Date/Time: 04/06/22 15:12 Attending Provider: Yves Del Valle Admit Provider: Migue Morris Primary Care Provider: Niecy Churchill Other Providers: Migue Morris ; Alexi Bo Other Interventions: Discharge Summary Assessment (RN) Last Done: 04/07/22 11:25 Coding Level of Care Code D/C DAY MANAGEMENT >30 MINS
--- NOTE | 2022-04-07 18:49 | Electrocardiogram Report ---
Test Reason : Blood Pressure : / mmHG Vent. Rate : 057 BPM Atrial Rate : 057 BPM P-R Int : 312 ms QRS Dur : 086 ms QT Int : 502 ms P-R-T Axes : 060 -04 043 degrees QTc Int : 488 ms Sinus bradycardia with 1st degree A-V block with Blocked Premature atrial complexes with ventricular escape complexes Abnormal ECG No previous ECGs available Confirmed by Alexi Bo ([id number]) on 04/07/2022 6:49:47 PM Referred By: REFERRED SELF Confirmed By:Evan Bo
--- NOTE | 2022-04-07 19:02 | Electrocardiogram Report ---
Test Reason : Blood Pressure : / mmHG Vent. Rate : 048 BPM Atrial Rate : 048 BPM P-R Int : 290 ms QRS Dur : 082 ms QT Int : 482 ms P-R-T Axes : 000 062 005 degrees QTc Int : 430 ms Sinus bradycardia with 1st degree A-V block Otherwise normal ECG When compared with ECG of 06-APR-2022 12:47, (unconfirmed) Premature atrial complexes are no longer Present Sinus rhythm is no longer with ventricular escape complexes Nonspecific T wave abnormality now evident in Inferior leads Nonspecific T wave abnormality no longer evident in Lateral leads QT has shortened Confirmed by Alexi Bo ([id number]) on 04/07/2022 7:02:14 PM Referred By: REFERRED SELF Confirmed By:Evan Bo
== END 2022-04-07 14:15 | disposition home or self-care (01) ==
LOC: 2S 12:22 → ED 12:22 → SUATTDRO 15:12 → 2S 16:20

== ENCOUNTER 2024-01-19 13:15 | Inpatient (IN) ==
[2024-01-19 13:49] LABS: Basophils # (auto) 0.02 K/uL (0.00-0.20); Basophils % (auto) 0.3 %; Eosinophils # (auto) 0.09 K/uL (0.00-0.50); Eosinophils % (auto) 1.1 %; Hematocrit (blood only) 33.5 % (42.0-52.0); Hemoglobin 11.9 g/dl (14.0-18.0); Immature Granulocytes # (auto) 0.05 K/uL (0.01-0.20); Immature Granulocytes % (auto) 0.6 %; Lymphocytes # (auto) 0.92 K/uL (1.20-3.40); Lymphocytes % (auto) 11.6 %; Mean Corpuscular Hemoglobin 38.8 pg (25.0-34.0); Mean Corpuscular Hgb Conc 35.5 g/dL (32.0-36.0); Mean Corpuscular Volume 109.1 fL (80.0-100.0); Mean Platelet Volume 10.3 fL (9.4-12.4); Monocytes # (auto) 0.61 K/uL (0.11-0.59); Monocytes % (auto) 7.7 %; Neutrophils # (auto) 6.24 K/uL (1.40-6.50); Neutrophils % (auto) 78.7 %; Platelet Count 214 K/uL (130-400); RDW Coefficient of Variation 15.4 % (11.5-14.5); RDW Standard Deviation 62.1 fL (36.4-46.3); Red Blood Count 3.07 M/uL (4.70-6.10); White Blood Count 7.93 K/ul (4.8-10.8)
--- NOTE | 2024-01-19 14:11 | Emergency Department Note ---
Impression & Plan PNA (pneumonia), Spleen hematoma-closed, AV block, Mobitz II ED Provider Note NAME: SHANTE VAZ AGE: 83 SEX: M : 1940 ARRIVES VIA: Walk-In INFORMANT: Patient ED PROVIDER(S): Davey Fonseca DO CHIEF COMPLAINT: Cough and congestion HPI: Patient is an 83-year-old male with a past medical history of valvular heart disease, metastatic colon cancer who presents to the ER for cough and congestion and runny nose which has been present for the past 6 weeks. He notes over the past week he has been having low-grade fevers of 100. Denies any headache or change in vision. No chest pain or significant shortness of breath. Denies any belly pain, nausea, vomiting, or diarrhea. He notes he is on chemo with the last course this past Thursday. No dysuria, urgency, or frequency. He has been taking Tylenol for low-grade fevers. He was sent in by [facility] following a chest x-ray per external records which show pneumonia. ADDITIONAL HISTORY OBTAINED: Per HPI Chronic Medical/Social Conditions Affecting Care: Per HPI PAST MEDICAL HISTORY:See Below PAST SURGICAL HISTORY:See Below FAMILY HISTORY:See Below SOCIAL HISTORY:See Below HOME MEDICATIONS:See Below ALLERGIES:See Below VITALS:See Below PHYSICAL EXAMINATION: GENERAL: Sitting up in room, alert, no acute distress, nontoxic EYE EXAM: normal conjunctiva. PERRL and EOM's grossly intact. OROPHARYNX: mucous membranes are moist NECK: supple, no nuchal rigidity, no adenopathy, non-tender LUNGS: Clear to auscultation. Normal chest wall mechanics HEART: no murmurs, S1 normal and S2 normal ABDOMEN: abdomen soft, non-tender, normo-active bowel sounds, no masses, no rebound or guarding. UPPER EXTREMITIES: upper extremities are grossly normal. LOWER EXTREMITIES: No pitting edema. NEURO EXAM: Normal sensorium, cranial nerves II-XII grossly intact, normal speech, no gross weakness of arms, no gross weakness of legs. MEDICAL DECISION MAKING: Patient is an 83-year-old male who presents to the ER on chemo for possible pneumonia referred in. IV was established and blood work was obtained. Labs show no significant leukocytosis or anemia. BMP unremarkable. Troponin was elevated at 30. Pro-Oscar 0.1. Chest x-ray with multiple masses suggesting metastatic disease which is well-known. CT of the chest after discussion with we from radiology notes pneumonia in the lower lobes. Patient was given IV cefepime. Vancomycin was held due to previous renal failure on this. While here in the ER he had a winky block which was followed by multiple episodes of Mobitz 2. Cardiology was consulted and will order an echo for tomorrow. Discussed with hospitalist for admission. CT of the chest did show splenic hematoma and upon review of external records including epic showed this in the past. Patient know about this as well. No need for additional imaging after discussion with the hospitalist. Patient will be admitted for further workup. Family was updated bedside. Consults/Care Managements Discussions: Per [facility] Triage Nursing notes reviewed. Limited review of prior medical records performed Vital Signs: reviewed and remarkable for no significant abnormalities Differential diagnosis: Cardiac ischemia, aortic dissection, pulmonary embolism, pneumothorax, pneumonia, pericarditis, myocarditis, esophageal rupture, GERD, cholecystitis, pancreatitis, musculoskeletal, as well as other pathologies. ER treatment provided: See below Diagnostics interpreted by me include EKG and cardiac monitoring as listed below: -Cardiac Monitoring: An order was placed for continuous cardiac monitoring. The monitor shows a rate of 60 with sinus rhythm. -ECG: Sinus rhythm rate of 50 Mobitz 1 QTc 417 -Laboratory studies:Interpreted by me as stated above in MDM and shown below. Imaging studies: Xrays: As interpreted by me: Portable AP upright 1 view of the chest shows multiple infiltrates CTs show: CT of the chest shows multiple opacities likely secondary to cancer and questionable infiltrates at the bases CT abdomen pelvis shows splenic hematoma which is old Procedures:none Critical Care: None Past Med/Surg History Problem List (Updated 01/19/24 @ 20:46 by Davey Fonseca DO) AV block, Mobitz II (Acute) Spleen hematoma-closed (Acute) PNA (pneumonia) (Acute) Valvular heart disease Dizziness (Acute) Medical History (Updated 01/19/24 @ 20:46 by Davey Fonseca DO) Dyslipidemia Gout Hypertension 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 Bradycardia Diabetes Cardiac conduction disorder Social History Smoking Status: Former smoker Tobacco Type: Cigarettes Hx Alcohol Use: No Hx Substance Use: No Preferred Language: Cameroonian Communication Ability: Effective Transportation Engineering Technician Required: No Beliefs That Will Affect Care: None Current Living Situation: Spouse Feels Safe at Home: Yes Assistive Devices: None Allergies Allergies Allergy/AdvReac Type Severity Reaction Status Date / Time hydromorphone [From Dilaudid] Allergy Verified 11/16/23 14:51 morphine AdvReac Severe SEVERE Verified 04/06/22 15:24 CONFUSION folic acid AdvReac Unknown folate Verified 04/07/22 08:59 products~CONTRAINDICATED WITH CHEMO DRUG Home Meds Home Medications Medication Instructions Recorded Confirmed allopurinol 300 mg tablet 150 mg PO QAM 04/06/22 01/19/24 canagliflozin 100 mg tablet 100 mg PO DAILYBB 04/06/22 01/19/24 (Invokana) irbesartan 300 mg tablet 300 mg PO QAM 04/06/22 01/19/24 linagliptin 5 mg tablet (Tradjenta) 5 mg PO QAM 04/06/22 01/19/24 nifedipine 60 mg tablet,extended 60 mg PO QPM 04/06/22 01/19/24 release 24 hr potassium chloride 20 mEq 20 meq PO QPM 04/06/22 01/19/24 tablet,extended release(part/cryst) pravastatin 40 mg tablet 40 mg PO QPM 04/06/22 01/19/24 cholecalciferol (vitamin D3) 25 25 mcg PO QAM 11/11/23 01/19/24 mcg (1,000 unit) capsule docusate sodium 100 mg capsule 100 mg PO DAILY PRN constipation 11/11/23 01/19/24 finerenone 10 mg tablet (Kerendia) 10 mg PO DAILY proteinuria 11/11/23 01/19/24 metformin 500 mg tablet 500 mg PO BID 11/11/23 01/19/24 methylcobal 1 dose sublingual QAM 11/11/23 01/19/24 pyridoxine (vitamin B6) 50 mg 50 mg PO QPM 11/11/23 01/19/24 tablet vitamins A,C,Y-[id number]-gsbzxs 2 cap PO BID 11/11/23 01/19/24 [PreserVision AREDS] meclizine 12.5 mg tablet 12.5 mg PO TID PRN Other 01/19/24 01/19/24 Results & Data (ED) Vital Signs Vital Signs - 24 hr 01/19/24 13:21 01/19/24 15:28 01/19/24 16:19 Temperature 36.6 C Temperature Source Temporal Artery Scan Pulse Rate 68 66 Pulse Rate [Left Apical] 46 L Respiratory Rate 20 16 Respiratory Effort / Characteristics Non-Labored Non-Labored Spontaneous Respiratory Depth Normal Normal Respiratory Pattern Regular Blood Pressure 129/58 L Blood Pressure [Right Arm] 148/61 H Blood Pressure Mean 81 Blood Pressure Mean [Right Arm] 90 Pulse Oximetry 96 98 Oxygen Delivery Method Room Air Room Air Sepsis Recent Fever Within 48 Hours No Sepsis New/Unexplained Change in Mental Status N/A Sepsis Action Taken by Nursing No Action Required 01/19/24 16:30 01/19/24 16:31 01/19/24 16:51 Temperature Temperature Source Pulse Rate 56 L 46 L Pulse Rate [Left Apical] Respiratory Rate 22 23 Respiratory Effort / Characteristics Respiratory Depth Respiratory Pattern Blood Pressure 155/66 H Blood Pressure [Right Arm] Blood Pressure Mean 101 Blood Pressure Mean [Right Arm] Pulse Oximetry 98 96 Oxygen Delivery Method Room Air Room Air Sepsis Recent Fever Within 48 Hours Sepsis New/Unexplained Change in Mental Status Sepsis Action Taken by Nursing 01/19/24 17:30 01/19/24 17:33 01/19/24 17:50 Temperature Temperature Source Pulse Rate 45 L Pulse Rate [Left Apical] Respiratory Rate 16 Respiratory Effort / Characteristics Respiratory Depth Respiratory Pattern Blood Pressure 151/78 H 171/105 H Blood Pressure [Right Arm] Blood Pressure Mean 111 121 Blood Pressure Mean [Right Arm] Pulse Oximetry 98 Oxygen Delivery Method Room Air Sepsis Recent Fever Within 48 Hours Sepsis New/Unexplained Change in Mental Status Sepsis Action Taken by Nursing 01/19/24 18:24 01/19/24 18:30 01/19/24 18:51 Temperature Temperature Source Pulse Rate 54 L 43 L 97 H Pulse Rate [Left Apical] Respiratory Rate 24 21 Respiratory Effort / Characteristics Respiratory Depth Respiratory Pattern Blood Pressure Blood Pressure [Right Arm] Blood Pressure Mean Blood Pressure Mean [Right Arm] Pulse Oximetry Oxygen Delivery Method Sepsis Recent Fever Within 48 Hours Sepsis New/Unexplained Change in Mental Status Sepsis Action Taken by Nursing Laboratory Data 01/19/24 13:30 01/19/24 13:30 Lab Results 01/19/24 01/19/24 Range/Units 13:30 18:40 WBC 7.93 (4.8-10.8) K/ul RBC 3.07 L (4.70-6.10) M/uL Hgb 11.9 L (14.0-18.0) g/dl Hct 33.5 L (42.0-52.0) % MCV 109.1 H (80.0-100.0) fL MCH 38.8 H (25.0-34.0) pg MCHC 35.5 (32.0-36.0) g/dL RDW Std Deviation 62.1 H (36.4-46.3) fL RDW Coeff of [place] 15.4 H (11.5-14.5) % Plt Count 214 (130-400) K/uL MPV 10.3 (9.4-12.4) fL Immature Gran % (Auto) 0.6 % Neut % (Auto) 78.7 % Lymph % (Auto) 11.6 % [place] % (Auto) 7.7 % Eos % (Auto) 1.1 % Baso % (Auto) 0.3 % Neut # (Auto) 6.24 (1.40-6.50) K/uL Lymph # (Auto) 0.92 L (1.20-3.40) K/uL [place] # (Auto) 0.61 H (0.11-0.59) K/uL Eos # (Auto) 0.09 (0.00-0.50) K/uL Baso # (Auto) 0.02 (0.00-0.20) K/uL Immature Gran # (Auto) 0.05 (0.01-0.20) K/uL Sodium 139 (136-145) mmol/L Potassium 4.0 (3.5-5.1) mmol/L Chloride 105 (98-107) mmol/L Carbon Dioxide 24 (21-32) mmol/L Anion Gap 10 (3-11) BUN 19 (6-23) mg/dl Creatinine 1.12 (0.6-1.4) mg/dl Est Cr Clr Drug Dosing 50.7 ml/min eGFR 64.78 BUN/Creatinine Ratio 17.0 (10-20) Glucose 147 H (70-99(Fasting)) mg/dl Calcium 8.6 (8.6-10.3) mg/dl Total Bilirubin 0.8 (0.2-1.0) mg/dl AST 27 (13-39) U/L ALT 15 (7-52) U/L Alkaline Phosphatase 123 H (34-104) U/L Troponin I High Sens 32.3 H (0-20) pg/ml Total Protein 6.7 (6.0-8.3) gm/dl Albumin 3.6 (3.4-5.0) gm/dl Globulin 3.1 (2.5-4.0) gm/dl Albumin/Globulin Ratio 1.2 (0.9-2) Procalcitonin 0.10 (0-0.5) ng/ml Nasal Screen MRSA (PCR) Negative (Negative) Administered Medications Discontinued Medications Azithromycin (Azithromycin 250 Mg Tab) 500 mg PO NOW STA Stop: 01/19/24 18:52 Last Admin: 01/19/24 19:13 Dose: 500 mg Documented By: SURYA Cefepime HCl (Maxipime 2000mg) 2,000 mg in 20 mls @ 5 mls/min IV NOW STA; Protocol Stop: 01/19/24 17:17 Last Admin: 01/19/24 17:56 Dose: 5 mls/min Documented By: ALEXANDER Vancomycin HCl 1,500 mg/ (Sodium Chloride) 530 mls @ 200 mls/hr IV NOW ONE Stop: 01/19/24 19:52 Last Admin: 01/19/24 18:22 Dose: Not Given Documented By: ALEXANDER Ioversol (Optiray 320 100ml) 91 ml IV ONCE ONE Stop: 01/19/24 16:06 Last Admin: 01/19/24 16:05 Dose: 91 ml Documented By: ART Ioversol (Optiray 320 100ml) 91 ml IV ONCE ONE Stop: 01/19/24 18:09 Last Admin: 01/19/24 18:09 Dose: 91 ml Documented By: ARIE Imaging Data Radiologist's Impression: Chest X-Ray 01/19/24 14:07 TWO VIEW CHEST CLINICAL HISTORY: Cough. FINDINGS: PA and lateral chest radiographs are compared to study dated 04/06/2022. A right internal jugular central venous infusion port is unchanged in position. The heart is enlarged noting atherosclerotic calcification of the thoracic aorta. The pulmonary vasculature is noncongested. There are numerous nodular airspace opacities seen throughout both lungs with foci of parenchymal scarring and architectural distortion. Several these nodular foci appear to show central cavitation. More focal consolidation is suggested in the left lower lung in the retrocardiac region. There is no pleural effusion or pneumothorax. The skeletal structures are osteopenic. The bony thorax appears intact. Degenerative change is noted in the shoulders and spine. IMPRESSION: 1. Cardiomegaly without radiographic evidence of congestive failure. 2. There are numerous nodular airspace opacities seen throughout both lungs, several which appear to show central cavitation. More focal airspace consolidation is suggested at the left lung base in the retrocardiac region. This could represent multifocal pulmonary metastatic disease and/or multifocal pneumonia. Correlate with any prior outside imaging studies. Radiographic follow-up is advised. ACT 112: Negative or not required by law. Electronically signed by: Morris Scott M.D. 01/19/2024 2:[address] 01/19/24 15:13 CT chest diagnostic w con CLINICAL HISTORY: known metastatic cancersent by pcp TECHNIQUE: Multidetector row helical CT of the chest was performed with intravenous contrast. Coronal and sagittal reformations were obtained. Automated dose lowering techniques and/or adjustment according to patient size were utilized for this exam. CT DOSE: 605.67 mGy.cm Comparison: Comparison is made to chest radiograph 01/09/2024 FINDINGS: Lungs and pleura: Numerous nodules, some of which are cavitary, are seen with the largest in the bilateral lower lobes. Heart and pericardium: Cardiomegaly is seen with biatrial enlargement. Vessels: Moderate atherosclerotic changes in the aorta and coronary arteries. No evidence of pulmonary embolus within limits of nondedicated exam. Mediastinum and luciano: Unremarkable. Chest wall and lower neck: Small thyroid nodules are noted which do not require follow-up by ACR criteria. Abdomen: A hiatal hernia is seen. There is hypodensity surrounding the superior aspect of the spleen. Bones: Degenerative changes in the thoracic spine. IMPRESSION: 1. Multifocal nodularity is seen, some of which is cavitary, concerning for metastatic disease. 2. Nonspecific hypodensity surrounding the spleen which is nonspecific but may represent hematoma. ACT 112: Negative or not required by law. Electronically signed by: Kp Gabriel M.D. 01/19/2024 4:38 PM Abdomen/Pelvis CT 01/19/24 16:45 Exam(s): CT ABDOMEN + PELVIS With Contrast IV Amt: 91 cc opti 320 EXAM: CT Abdomen and Pelvis With Intravenous Contrast CLINICAL HISTORY: Reason for exam: ? splenic hemtoma. TECHNIQUE: Axial computed tomography images of the abdomen and pelvis with intravenous contrast. CTDI is 15.97 mGy and DLP is 858.82 mGy-cm. Automated exposure control was utilized for the study. A dose lowering technique was utilized adhering to the principles of ALARA. CONTRAST: Patient received 91 cc opti 320 of IV contrast COMPARISON: No relevant prior studies available. FINDINGS: Lung bases: Multifocal consolidative and nodular opacities at the lung bases the appearance of which is most concerning for metastatic disease. ABDOMEN: Liver: Unremarkable. Gallbladder and bile ducts: Unremarkable. Pancreas: Unremarkable. Spleen: Subcapsular fluid collection around approximately 25% of the spleen measuring up to 1.2 cm in size. Adrenals: Unremarkable. Kidneys and ureters: Unremarkable. No obstructing stones. No hydronephrosis. Stomach and bowel: Colonic diverticulosis without acute diverticulitis. Postsurgical changes from a right colectomy. No bowel obstruction. PELVIS: Appendix: See above. Bladder: Unremarkable. Reproductive: Unremarkable as visualized. ABDOMEN and PELVIS: Intraperitoneal space: Unremarkable. No free air. No significant fluid collection. Bones/joints: No acute fracture. Soft tissues: Unremarkable. Vasculature: Unremarkable. Lymph nodes: Unremarkable. IMPRESSION: 1. Small subcapsular splenic hematoma. 2. Multifocal consolidative and nodular opacities at the lung bases the appearance of which is most concerning for metastatic disease. 3. Colonic diverticulosis without acute diverticulitis. Electronically signed by: Tomy Flower MD 01/19/24 19:23 PM Discharge Plan Visit Data Chief Complaint: Illness Stated Complaint: HAS PNEUMONIA, LOW FEVER, REF BY DOC ED Provider: Davey Fonseca Discharge Problem: PNA (pneumonia), Spleen hematoma-closed, AV block, Mobitz II Forms Stand Alone Forms: My [facility] [employer] Prescriptions Prescriptions: No Action docusate sodium 100 mg capsule 100 mg PO DAILY PRN (Reason: constipation) Kerendia 10 mg tablet 10 mg PO DAILY metformin 500 mg tablet 500 mg PO BID methylcobal 2,500 mcg tablet 1 dose sublingual QAM vitamins A,C,O-trjv-veenpe [PreserVision AREDS] 2 cap PO BID pyridoxine (vitamin B6) 50 mg tablet 50 mg PO QPM cholecalciferol (vitamin D3) 25 mcg (1,000 unit) capsule 25 mcg PO QAM pravastatin 40 mg Tablet 40 mg PO QPM potassium chloride 20 mEq tablet,ER particles/crystals 20 meq PO QPM nifedipine 60 mg Tablet Extended Release 24hr 60 mg PO QPM allopurinol 300 mg Tablet 150 mg PO QAM irbesartan 300 mg Tablet 300 mg PO QAM Tradjenta 5 mg Tablet 5 mg PO QAM Invokana 100 mg Tablet 100 mg PO DAILYBB meclizine 12.5 mg tablet 12.5 mg PO TID PRN (Reason: Other) Referrals Referrals: Niecy Churchill M.D. [Primary Care Provider] - Discharge Problem: PNA (pneumonia) Qualifiers: Pneumonia type: due to unspecified organism Laterality: unspecified laterality Spleen hematoma-closed Qualifiers: Encounter type: initial encounter Qualified Code(s): S36.029A - Unspecified contusion of spleen, initial encounter
[2024-01-19 14:18] LABS: Albumin Globulin Ratio 1.2 (0.9-2); Albumin Level 3.6 gm/dl (3.4-5.0); Bilirubin,Total 0.8 mg/dl (0.2-1.0); Calcium 8.6 mg/dl (8.6-10.3); Creatinine Clr Calc Pharmacy 50.7 ml/min; Globulin 3.1 gm/dl (2.5-4.0); Total Protein 6.7 gm/dl (6.0-8.3)
[2024-01-19 14:21] LABS: Troponin I High Sensitivity 32.3 pg/ml (0-20)
--- NOTE | 2024-01-19 14:45 | XRay Report ---
TWO VIEW CHEST CLINICAL HISTORY: Cough. FINDINGS: PA and lateral chest radiographs are compared to study dated 04/06/2022. A right internal jug ular central venous infusion port is unchanged in position. The heart is enlarged noting atherosclero tic calcification of the thoracic aorta. The pulmonary vasculature is noncongested. There are numerou s nodular airspace opacities seen throughout both lungs with foci of parenchymal scarring and archite ctural distortion. Several these nodular foci appear to show central cavitation. More focal consolida tion is suggested in the left lower lung in the retrocardiac region. There is no pleural effusion or pneumothorax. The skeletal structures are osteopenic. The bony thorax appears intact. Degenerative ch jesse is noted in the shoulders and spine. IMPRESSION: 1. Cardiomegaly without radiographic evidence of congestive failure. 2. There are numerous nodular airspace opacities seen throughout both lungs, several which appear to show central cavitation. More focal airspace consolidation is suggested at the left lung base in the retrocardiac region. This could represent multifocal pulmonary metastatic disease and/or multifocal p neumonia. Correlate with any prior outside imaging studies. Radiographic follow-up is advised. ACT 112: Negative or not required by law. Electronically signed by: Morris Scott M.D. 01/19/2024 2:43 PM
[2024-01-19] MEDS: OPTIRAY 320 100ml IV ONE ×2 (16:05→18:09)
--- NOTE | 2024-01-19 16:40 | CT Scan Report ---
CT chest diagnostic w con CLINICAL HISTORY: known metastatic cancersent by pcp TECHNIQUE: Multidetector row helical CT of the chest was performed with intravenous contrast. Coronal and sagittal reformations were obtained. Automated dose lowering techniques and/or adjustment accord ing to patient size were utilized for this exam. CT DOSE: 605.67 mGy.cm Comparison: Comparison is made to chest radiograph 01/09/2024 FINDINGS: Lungs and pleura: Numerous nodules, some of which are cavitary, are seen with the largest in the bila teral lower lobes. Heart and pericardium: Cardiomegaly is seen with biatrial enlargement. Vessels: Moderate atherosclerotic changes in the aorta and coronary arteries. No evidence of pulmonar y embolus within limits of nondedicated exam. Mediastinum and luciano: Unremarkable. Chest wall and lower neck: Small thyroid nodules are noted which do not require follow-up by ACR jac vazquez. Abdomen: A hiatal hernia is seen. There is hypodensity surrounding the superior aspect of the spleen. Bones: Degenerative changes in the thoracic spine. IMPRESSION: 1. Multifocal nodularity is seen, some of which is cavitary, concerning for metastatic disease. 2. Nonspecific hypodensity surrounding the spleen which is nonspecific but may represent hematoma. ACT 112: Negative or not required by law. Electronically signed by: Kp Gabriel M.D. 01/19/2024 4:38 PM
[2024-01-19] MEDS ORDERED: VANCOMYCIN CONSULT ACTIVE PRN (17:14)
[2024-01-19] MEDS: CEFEPIME 2000MG 2,000 MG/20 ML SYR IV STA (17:56)
[2024-01-19] MEDS: VANCOMYCIN HCL 1,500 MG in SODIUM CHLORIDE 0.9% 500 ML IV ONE (18:22)
[2024-01-19] MEDS ORDERED: AZITHROMYCIN 500 MG in DEXTROSE 5% 250 ML IV ONE (18:38)
--- NOTE | 2024-01-19 18:42 | History & Physical Report ---
Date of Service January 19, 2024 Assessment & Plan (1) PNA (pneumonia): Plan: Pneumonia Presents with ongoing cough, congestion, low-grade fever over 6 weeks. Has had some night sweats/chills improved with Tylenol consistent with pneumonia CT with bilateral lower lung consolidation suspicious for pneumonia, patient with ongoing cough and low-grade fevers No leukocytosis. PCT is normal No hypoxia MRSA nare ordered Azithromycin/cefepime given on admission. 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 With history of right Cipriano colectomy and adjuvant chemotherapy. Transition care to [facility] at [facility]. Reinitiation of chemotherapy in 2018. Patient was on irinotecan, Avastin, 5-FU, leukocoria been. Irinotecan was discontinued at the end of 2002, continued on Avastin however this was held due to induction of proteinuria. With known pulmonary metastasis Currently is following with [facility] Dr. Vargas oncology and is on biweekly 5- fluorouracil/oxy Platten treatment No leukocytosis, he is not acutely leukopenic No acute change in management (3) Cardiac conduction disorder: Plan: First-degree AV block, Mobitz 1, bradycardia Seen in consultation with cardiology 04/2022. Was noted to have first-degree AV block at baseline and occasional Mobitz 1. - Troponin 32.3, repeat pending EKG: Sinus bradycardia with first-degree AV block. No acute ischemic change. QTc 417 Hypertension Home antihypertensives continued, renal function is at baseline (4) Diabetes: Plan: Metformin held Basal bolus insulin while inpatient Type II DM/heart healthy diet (5) Gout: Plan: Continue allopurinol (6) Spleen hematoma-closed: Plan: Chronic Splenic Hematoma CTchest/abdomen/pelvics with contrast 01/06/2024 at [facility]: Multiple bilateral pulmonary nodules and masses consistent with metastatic disease. Indeterminate adrenal nodules. CTchest on admission redemonstrates splenic fluid collection. Hemoglobin is within 1 point of hemoglobin at that time, currently 11.9. Low suspicion for active bleed/extravasation. Will admit and monitor hemoglobin - CT-A/P on admit: 1. Small subcapsular splenic hematoma. 2. Multifocal consolidative and nodular opacities at the lung bases the appearance of which is most concerning for metastatic disease. 3. Colonic diverticulosis without acute diverticulitis. - 05/2023 CT report --> Subscapular splenic chronic hematoma present at that time. This is longstanding and chronic without recent trauma or hemoglobin drop. Will admit and follow serial H&H, no acute intervention is indicated at this time, appears stable over 8 months No abdominal pain on exam, abdomen is soft Plan DVT prophylaxis: SCDs pending hemoglobin stability, if hemoglobin is stable then start Lovenox 01/19 CODE STATUS: DNR/DNI discussed with patient about Disposition: PCU due to acute illness and history of heart block Diet: Heart healthy/DM2 History of Present Illness Primary Care Provider: Niecy Andres is an 83-year-old male with a prior medical history of diabetes, hypertension, gout, hyperlipidemia, dizziness with chronic Mobitz 1 heart block on prior admission, metastatic colon cancer who presents to the ER with cough and congestion for 6 weeks but continued low-grade fevers of around 100. He has no abdominal pain. He has been on chemotherapy. Reviewed with ER provider. CT of the chest shows a nonspecific hypodensity surrounding the spleen which is nonspecific but which may represent hematoma. This was compared to imaging at [facility] and this was noted on prior CT scan and stable. No recent trauma. CT does show evidence of multifocal nodularity conserving metastatic disease, and consolidative density in the bilateral lower lung suspicious for pneumonia. Mckenna reports for the last five to six weeks he has had constant cough, conestion and a little fatigue and shortness of breath that feels similar to prior episodes of pneumonia. Persistent over the last few weeks, and the cough seems to have gradually worsened and this week has a gradually climbing temperature now around 100*F daily. Came to the ER as he was worried about pneumonia. Night sweats a few times in the last week which has improved with tylenol. Last took tylenol 2x 500mg pills last evening. CHemo every 2 weeks 5FU and just started oxyplatin CEA and scans have showed increasing disease Follows with Dr. Vargas at [facility], previously followed with [facility] in [place]. Does not have a PCP yet, sees a Rhonda PA currently as had just reloacted [facility]. Would like to meet with Case Management to talk about a PCP followup. NO recent injuries, falls, or trauma to his knowledge. Per patients daughter did meet with Dr. Vargas after the scan --> not sure about the details but thinks this was going to be compared to previous scans and was not felt to be urgent/emergent No abdominal pain, nausea, vomiting, diarrhea. Pt is concerned about vancomycin because he notes he almost was overdosed on vancomycin many years ago but is not clear on the details of what type of damage this was. Is not sure if there was kidney damage at the time, just knows he was told he overdosed and was a few minutes from due to it at the time. Medical History: Reviewed Medications: Reviewed Surgical History: Reviewed Family history: Reviewed Allergies: Reviewed. Social History: No tobacco/regular ETOH Code Status: DNR/DNI May call daughter Socorro [phone] Allergies Allergy/AdvReac Type Severity Reaction Status Date / Time hydromorphone [From Dilaudid] Allergy Verified 11/16/23 14:51 morphine AdvReac Severe SEVERE Verified 04/06/22 15:24 CONFUSION folic acid AdvReac Unknown folate Verified 04/07/22 08:59 products~CONTRAINDICATED WITH CHEMO DRUG Home Medications Medication Instructions Recorded Confirmed Type allopurinol 300 mg tablet 150 mg PO QAM 04/06/22 01/19/24 History canagliflozin 100 mg tablet 100 mg PO DAILYBB 04/06/22 01/19/24 History (Invokana) irbesartan 300 mg tablet 300 mg PO QAM 04/06/22 01/19/24 History linagliptin 5 mg tablet (Tradjenta) 5 mg PO QAM 04/06/22 01/19/24 History nifedipine 60 mg tablet,extended 60 mg PO QPM 04/06/22 01/19/24 History release 24 hr potassium chloride 20 mEq 20 meq PO QPM 04/06/22 01/19/24 History tablet,extended release(part/cryst) pravastatin 40 mg tablet 40 mg PO QPM 04/06/22 01/19/24 History cholecalciferol (vitamin D3) 25 25 mcg PO QAM 11/11/23 01/19/24 History mcg (1,000 unit) capsule docusate sodium 100 mg capsule 100 mg PO DAILY PRN constipation 11/11/23 01/19/24 History finerenone 10 mg tablet (Kerendia) 10 mg PO DAILY proteinuria 11/11/23 01/19/24 History metformin 500 mg tablet 500 mg PO BID 11/11/23 01/19/24 History methylcobal 1 dose sublingual QAM 11/11/23 01/19/24 History pyridoxine (vitamin B6) 50 mg 50 mg PO QPM 11/11/23 01/19/24 History tablet vitamins A,C,D-lwwu-zlvgjf 2 cap PO BID 11/11/23 01/19/24 History [PreserVision AREDS] meclizine 12.5 mg tablet 12.5 mg PO TID PRN Other 01/19/24 01/19/24 History Past Med/Surg History Problem List (Updated 01/19/24 @ 19:46 by Hunter Herrera MD) Spleen hematoma-closed PNA (pneumonia) Valvular heart disease Dizziness (Acute) Medical History (Updated 01/19/24 @ 19:46 by Hunter Herrera MD) Dyslipidemia Gout Hypertension 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 Bradycardia Diabetes Cardiac conduction disorder Social History Smoking Status: Former smoker Tobacco Type: Cigarettes Hx Alcohol Use: No Hx Substance Use: No Preferred Language: Occitan Communication Ability: Effective Research Quality Assurance Analyst Required: No Beliefs That Will Affect Care: None Current Living Situation: Spouse Feels Safe at Home: Yes Assistive Devices: None Physical Exam Physical Exam: General: A&Ox3. NAD. Cooperative. HEENT: Atraumatic, normocephalic. Vision and hearing grossly intact. Pupils equal and reactive to light Pulm: Basilar crackles without rales. No wheezing. Some scattered rhonchi, deep inspiration causes cough on exam. Symmetrical chest rise. No increased work of breathing. No respiratory distress. Cardiac: RRR, -mrg. Radial pulses intact and symmetrical. Abdominal: Nontender, nondistended, soft. BS present. Extremities: Warm and dry Results & Data Results & Data Vital Signs (Past 12 Hours) Vital Signs Temp Pulse Pulse Resp BP BP Pulse Ox 01/19/24 16:51 46 L 23 96 01/19/24 16:31 155/66 H 01/19/24 16:30 56 L 22 98 01/19/24 16:19 46 L 16 148/61 H 98 01/19/24 15:28 66 01/19/24 13:21 36.6 C 68 20 129/58 L 96 O2 Del Method 01/19/24 16:51 Room Air 01/19/24 16:31 01/19/24 16:30 Room Air 01/19/24 16:19 Room Air 01/19/24 15:28 01/19/24 13:21 Room Air PG Care Time/CCT Total # of Minutes Spent Total Time Spent with Patient: Total time spent is greater than 50% in coordination of care (as documented) at patient's floor/unit and/or counseling patient: Coding Level of Care Code 36138 INT INP/OBS CARE 3/75MIN Diagnoses PNA (pneumonia) J18.9 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
[2024-01-19] MEDS: AZITHROMYCIN 250 MG TAB PO STA (19:13)
--- NOTE | 2024-01-19 19:23 | CT Scan Report ---
Exam(s): CT ABDOMEN + PELVIS With Contrast IV Amt: 91 cc opti 320 EXAM: CT Abdomen and Pelvis With Intravenous Contrast CLINICAL HISTORY: Reason for exam: ? splenic hemtoma. TECHNIQUE: Axial computed tomography images of the abdomen and pelvis with intravenous contrast. CTDI is 15.97 mGy and DLP is 858.82 mGy-cm. Automated exposure control was utilized for the study. A dose lowering technique was utilized adhering to the principles of ALARA. CONTRAST: Patient received 91 cc opti 320 of IV contrast COMPARISON: No relevant prior studies available. FINDINGS: Lung bases: Multifocal consolidative and nodular opacities at the lung bases the appearance of which is most concerning for metastatic disease. ABDOMEN: Liver: Unremarkable. Gallbladder and bile ducts: Unremarkable. Pancreas: Unremarkable. Spleen: Subcapsular fluid collection around approximately 25% of the spleen measuring up to 1.2 cm in size. Adrenals: Unremarkable. Kidneys and ureters: Unremarkable. No obstructing stones. No hydronephrosis. Stomach and bowel: Colonic diverticulosis without acute diverticulitis. Postsurgical changes from a right colectomy. No bowel obstruction. PELVIS: Appendix: See above. Bladder: Unremarkable. Reproductive: Unremarkable as visualized. ABDOMEN and PELVIS: Intraperitoneal space: Unremarkable. No free air. No significant fluid collection. Bones/joints: No acute fracture. Soft tissues: Unremarkable. Vasculature: Unremarkable. Lymph nodes: Unremarkable. IMPRESSION: 1. Small subcapsular splenic hematoma. 2. Multifocal consolidative and nodular opacities at the lung bases the appearance of which is most concerning for metastatic disease. 3. Colonic diverticulosis without acute diverticulitis. Electronically signed by: Tomy Flower MD 01/19/24 19:23 PM
[2024-01-19] MEDS ORDERED: GLUCOSE 40% GEL 15 GM TUBE PO PRN (19:53)
[2024-01-19] MEDS ORDERED: GLUCOSE 10 TAB/TUBE PO PRN (19:53)
[2024-01-19] MEDS ORDERED: CARBOHYDRATES FOR HYPOGLYCEMIA PO PRN (19:53)
[2024-01-19] MEDS ORDERED: DEXTROSE 50% 50 ML SYRINGE IV PRN (19:53)
[2024-01-19] MEDS ORDERED: GLUCAGON FOR INJ 1 MG VIAL SQ PRN (19:53)
[2024-01-19] MEDS: INSULIN ASPART PER UNIT CHARGE SC SCH (21:33)
[2024-01-19] MEDS: LANTUS PER UNIT CHARGE SQ SCH (21:34)
[2024-01-19] MEDS ORDERED: MECLIZINE 12.5 MG TAB PO PRN (22:16)
[2024-01-19] MEDS ORDERED: ACETAMINOPHEN 325 MG TAB PO PRN (22:16)
[2024-01-19] MEDS ORDERED: POLYETHYLENE (MIRALAX) 17 GM PACK PO PRN (22:16)
[2024-01-19] MEDS ORDERED: ONDANSETRON INJ 2 MG/ML 2 ML VIAL IV PRN (22:16)
[2024-01-19] MEDS ORDERED: DOCUSATE SODIUM 100 MG CAP PO PRN (22:16)
[2024-01-19] MEDS: PRAVASTATIN SOD 40 MG TAB PO SCH (22:58)
[2024-01-19] MEDS: NIFEdipine EXTENDED REL 30 MG TABCR PO SCH (22:59)
[2024-01-19] MEDS: PYRIDOXINE HCL 50 MG TAB PO SCH (22:59)
[2024-01-19] MEDS: POTASSIUM CHLORIDE CRTAB 20 MEQ TABCR PO SCH (23:01)
--- OUTSIDE RECORDS SUMMARY | 2024-01-19 23:21 | External Medical Summary | Summary of Care ---
Author Name Unknown Organization [facility] Address [address] [facility] [address] Phone [phone] Care Team Providers Care Vulcanized Fiber Unit Operator Name Role Phone Johanne Berman PA-C Primary Care Provi betina Encounter Details Date Type Department Care Team (Late st Contact Info) Description 11/02/2023 Orders Only [facility] [address] [facility] [place] [id number] Trung Vargas MD [address] [facility] [place] [id number] Allergies No known active allergiesdocumented as of this encounter (statuses as of 01/18/2024) Medications No known medicationsdocumented as of this encounter (statuses as of 01/18/2024) Active Problems Problem Noted Date Diagnosed Date Malignant neoplasm of ascending colon 01/08/2024 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 07/2023 Encounter for antineoplastic chemotherapy 2023 documented as of this encounter (statuses as of 01/18/2024) Social History Tobacco Use Types Packs/Day Years Used Date Smoking Tobacco: Never Assessed Utilities Answer Date Recorded Do you have trouble paying y our heating, water, or electric bill? (Adult - for ages 18 years and over) Not on file 09/22/2023 Is your family able to pay t he heat, water, or electric bill? (Household - for ages 0-17 years) Not on file 09/22/2023 Does your family have access to good internet? (Household - for ages 0-17 years) Not on file 09/22/2023 Social Connections Answer Date Recorded How often do you feel lonely or isolated from those around you? (Adult - for ages 18 years and over) Not on file 09/22/2023 Sex and Gender Information Value Date Recorded Sex Assigned at Not on file Gender Identity Not on file Sexual Orientation Not on file Job Start Date Occupation Industry Not on file Not on file Not on file documented as of this encounter Plan of Treatment Upcoming Encounters Date Type Department Care Team (Late st Contact Info) Description 01/26/2024 8:45 AM EDT Office Visit Hematology/Oncology [facility] [place] [facility] [employer] [phone] Trung Vargas MD [address] [place] [address] 01/26/2024 9:15 AM EDT Hem/Onc Treatment Hematology/Oncology Treatment [place] [address] [address] [place] [phone] Mckenna, Chair 1 Hem Onc [facility] [place] [address] 02/09/2024 8:00 AM EST Hem/Onc Treatment [facility]ology[facility]cology [facility] [address] [facility] [phone] Mckenna, Chair 1 Hem Onc [facility] [place] [address] 02/23/2024 8:00 AM EST Office Visit Hematology/Oncology [facility] [place] [phone] Virginia Camarena CRNP [address] [place] [address] [place] [id number] 02/23/2024 8:30 AM EST Hem/Onc Treatment Hematology/Oncology [address], [address] [place] [phone] Mckenna, Chair 11 Hem Onc [address] [place] [address] Health Maintenance Due Date Last Done Comments Depression Screening 1952 COVID-19 Vaccine (2023- season) 2023 05/08/2021, 12/24/2020, 11/27/2020, Additional history exists Influenza Vaccine (FLU shot) (#1) 2023 01/09/2023, 01/09/2023, 12/27/2021, Additional history exists DTap/Tdap Vaccines (2 - Td or Tdap) 10/08/2032 10/08/2022 Zoster Vaccines Completed 03/02/2018, 04/2017, 11/03/2017 Pneumococcal Vaccine: 65+ Years Completed 12/16/2022, 01/04/2018, 05/06/2017, Additional history exists HPV (Gardasil) Vaccine Aged Out No lo nger eligible based on patient's age to complete this topic Hepatitis B Vaccine Aged Out No longe r eligible based on patient's age to complete this topic MENINGOCOCCAL (MENACTRA/MENVEO) Aged Out No longer eligible based on patient's age to complete this topic documented as of this encounter Medical Devices Not on filedocumented as of this encounter Procedures Procedure Name Priority Date/Time Associated Diagnosis Comments RADIOLOGY EXAM - CT (IMAGES ONLY, NO REPORT) Routine 11/02/2023 9:05 AM EDT documented in this encounter Results * RADIOLOGY EXAM - CT (IMAGES ONLY, NO REPORT) (11/02/2023 9:05 AM EDT) 11/02/2023 8:59 AM EDT Narrative Scheduling, Silent - 01/18/2024 8:37 AM EDT This is an imaging study not interpreted or resulted by a [facility] or [facility] contracted radiologist. Trung Vargas MD RAD CT documented in this encounter Care Teams Vulcanized Fiber Unit Operator Relationship Specialty Start Date End Date Johanne Berman PA-C [facility] [address] [facility] [address] [place] [address] PCP - General Physician Lamp Mechanic 09/23/23 documented as of this encounter
--- OUTSIDE RECORDS SUMMARY | 2024-01-19 23:21 | External Medical Summary | Summary of Care ---
Author Name Unknown Organization [facility] Address [address] [facility] [address] Phone [phone] Care Team Providers Care Cognos Bi Administrator Name Role Phone Johanne Berman PA-C Primary Care Provi betina Reason for Visit * Reason Onset Date Comments Order Request 01/18/2024 Chest x-ray Encounter Details Date Type Department Care Team (Late st Contact Info) Description 01/18/2024 Telephone Family Practice [facility] Mia Andres [address] [place] [id number] Johanne Berman PA-C [address] [facility] [address] [place] [address] Order Request (Chest x-ray ) Allergies No known active allergiesdocumented as of this encounter (statuses as of 01/19/2024) Medications Medication Sig Dispensed Refills Start Date End Date Status Allopurinol 300 MG Oral Tablet (Zyloprim) Take 1 Tablet by mouth in the morning. Active Docusate Sodium 100 MG Oral Capsule (Colace) Take 1 Capsule by mouth in the morning and 1 Capsule before bedtime. Active Canagliflozin 100 MG Oral Tablet (Invokana) Take 1 Tablet by mouth in the morning. Active Irbesartan 300 MG Oral Tablet (Avapro) Take 1 Tablet by mouth at bedtime. Active Kerendia 10 MG Oral Tablet (Finerenone) Take by mouth. A ctive Meclizine HCl 25 MG Oral Tablet (Antivert) Take 1 Tablet by mouth 3 times a day as needed. Active metFORMIN HCl 500 MG Oral Tablet (Glucophage) Take 1 Tablet by mouth 2 times a day with morning and evening meals. Active Methylcobalamin 2500 MCG Sublingual Tablet Sublingual Place under the tongue. Active NIFEdipine ER 60 MG Oral Tablet Extended Release 24 Hour (Adalat CC) Take 1 Tablet by mouth in the morning. Active Potassium Chloride ER 20 MEQ Oral Tablet Extended Release Take 1 Tablet by mouth in the morning. Active Pravastatin Sodium 40 MG Oral Tablet (Pravachol) Take 1 Tablet by mouth every evening. Active PreserVision AREDS 2 Oral Tablet Chewable Take by mouth. Active linaGLIPtin 5 MG Oral Tablet (Tradjenta) Take 1 Tablet by mouth in the morning. Active Vitamin B-6 50 MG Oral Tablet Take 1 Tablet by mouth in the morning. Active Vitamin D3 25 MCG (1000 UT) Oral Capsule Take by mouth. Active Ondansetron HCl 8 MG Oral Tablet (Zofran)Indications:M alignant neoplasm of ascending colon (HCC),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) Take 1 Tablet by mouth every 8 hours as needed for Nausea. 30 Tablet 2 01/14/2024 Active Hospital, Clinic, or Other Facility Administered Medication Ordered Dose Route Frequency Start Date End Date Status Fluorouracil (5-Fu) 4,500 mg in NSS 138 mL infusion 4500 mg IV CONTINUOUS 01/11/2024 02/26/2024 Active documented as of this encounter (statuses as of 01/19/2024) Active Problems Problem Noted Date Diagnosed Date Malignant neoplasm of ascending colon 01/08/2024 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 07/2023 Encounter for antineoplastic chemotherapy 2023 documented as of this encounter (statuses as of 01/19/2024) Social History Tobacco Use Types Packs/Day Years [...] on file documented as of this encounter Miscellaneous Notes * Telephone Encounter - Marissa Garrido RN - 01/18/2024 1:40 PM EDT Called and spoke to Krish. She states that patients temp was 100.4 at the highest, no fever today.Patient c/o chest congestion and a moist cough, but nothing is coming up. Patients is concerned due to patients history of pneumonia so would like a CXR done. Advised her that patient should ideally be seen for symptoms- has transportation issues, has to payfor every ride to our office. Asked if they have a provider on site, she states that they do. She will see if they will see patient. Advised her that this may be best anyhow as we are not patients PCP, so patient will need to establish with someone anyhow and facility provider may be most convenient for patient/ family. She verbalized understanding. Advised her that I would make Dr Vargas aware of above. We will let them know if there are any further recommendations. * Telephone Encounter - Virginia Garber LPN - 01/18/2024 12:27 PM EDT I called Krish back at the [facility] to let her know that we are not the patient's PCP. She said they have his PCP listed as Trung Vargas. I informed her that Dr. Trung Vargas is not a primary care physician, he's a pneumatic deicer inspector/oncologist. I asked what the CXR order is being requested for. She statespatient has chest congestion and was running a low grade fever over the weekend. She requested thatthe message be forwarded to Dr. Marisabel Vargas since that is who they have listed as his PCP. I told her I'd forward the message but I'm unsure if his office would be able to provide the order. She verbalized understanding. If there are any questions/concerns, Krish can be reached at [phone] * Telephone Encounter - Amanda Mendoza OSA - 01/18/2024 11:52 AM EDT krish from [facility] requested a order for a chest x- ray for the pt documented in this encounter Plan of Treatment Upcoming Encounters Date Type Department Care Team (Late st Contact Info) Description 01/26/2024 8:45 AM EDT Office Visit Hematology/Oncology [address] [place] [phone] Trung Vargas MD [address] [facility] [place] [address] 01/26/2024 9:15 AM EDT Hem/Onc Treatment Hematology/[address]cology [address], [address] [phone] Mckenna, Chair 1 Hem Onc [address] [place] [address] 02/09/2024 8:00 AM EST Hem/Onc Treatment Hematology/Oncology [address], [address] [phone] Mckenna, Chair 1 Hem Onc [address] [place] [address] 02/23/2024 8:00 AM EST Office Visit Hematology/Oncology [facility] [address] [place] [phone] Virginia Camarena CRNP [address] [place] [address] [place] [address] 02/23/2024 8:30 AM EST Hem/Onc Treatment Hematology/Oncology Treatment, [place] [address] [place] [phone] Mckenna, Chair 11 Hem Onc [address] [place] [address] Health Maintenance Due Date Last Done Comments Depression Screening 1952 COVID-19 Vaccine ( season) 2023 05/08/2021, 12/24/2020, 11/27/2020, Additional history [...] Not on filedocumented as of this encounter Care Teams Cognos Bi Administrator Relationship Specialty Start Date End Date Johanne Berman PA-C [address] [place] [address] [place] [address] PCP - General Physician Plc Engineer 09/23/23 documented as of this encounter
--- OUTSIDE RECORDS SUMMARY | 2024-01-19 23:21 | External Medical Summary | Summary of Care ---
Author Name Unknown Organization [facility] [address] [facility] [address] Phone [phone] Care Team Providers Care Legal Operations Manager Name Role Phone Johanne Berman PA-C Primary Care Provi betina Reason for Visit * Reason Onset Date Comments transfer of records 01/14/2024 Pathology Encounter Details Date Type Department Care Team (Late st Contact Info) Description 01/14/2024 Telephone Hematology/Oncology [facility] State Mia Andres [address] [place] [id number] Trung Vargas MD 200 [facility] [place] [id number] transfer of records (Pathology) Allergies No known active allergiesdocumented as of this encounter (statuses as of 01/18/2024) Medications Medication Sig Dispensed Refills Start Date [...] UT) Oral Capsule Take by mouth. Active Hospital, Clinic, or Other Facility Administered [...] Encounter - Marissa Garrido RN - 01/18/2024 10:06 AM EDT Per 03/2018 pathology report at [facility]: "Addendum We have received a report from [facility] on this patient and a copy of the report is on file in our department. " Called [facility] and spoke to Suzanne. She will get this sent to our office. Report received, placed in scanning. * Telephone Encounter - Jeana Sandhu OSA - 01/15/2024 9:45 AM EDT Faxed request again to them * Telephone Encounter - Jeana Sandhu OSA - 01/14/2024 2:11 PM EDT Faxed new request to the new facility below * Telephone Encounter - Tuan Barba RN - 01/14/2024 2:01 PM EDT Spoke with Dr. Vargas regarding pathology. At this time we should try and request pathology from theng biopsy completed in 2018. Called patients DIL, she states the patient at that time was only going to [facility] in [place]. Scheduling- please request pathology reports from patients lung biopsy done in 2018 at [facility]. Thank you. * Telephone Encounter - Jeana Sandhu OSA - 01/14/2024 1:44 PM EDT Not fx back from [facility] stating that they do not have anything in 2014 with this info on it * Telephone Encounter - Jeana Sandhu OSA - 01/14/2024 12:58 PM EDT Fax sent * Telephone Encounter - Tuan Barba RN - 01/14/2024 11:59 AM EDT Scheduling- Please send request to [facility] for pathology results/reports from patients hemicolectomy surgery that was done in 2013. Thank you. Per Dr. Vargas- would like NGS testing done on pathology from 2013 if available. documented in this encounter Plan of Treatment Upcoming Encounters Date Type Department Care Team (Late st Contact Info) Description 01/26/2024 8:45 AM EDT Office Visit Hematology/Oncology [facility] Mckenna [address] [place] [phone] Trung Vargas MD [address] [facility] [address] [place] [address] 01/26/2024 9:15 AM EDT Hem/Onc Treatment Hematology/Oncology Treatment, [address] [place] [address] Mckenna, Chair [address] [facility] 200 [place] [address] 02/09/2024 8:00 AM EST Hem/Onc Treatment Hematology/Oncology Treatment, [address] [place] [address] Mckenna, Chair 1 Hem Onc [address] [place] [id number] 02/23/2024 8:00 AM EST Office Visit Hematology/Oncology [place] Mckenna [place] [address] [phone] Virginia Camraena CRNP [address] [place] [address] 02/23/2024 8:30 AM EST Hem/Onc Treatment Hematology/Oncology Treatment, [place] [address] [place] [address] Mckenna, Chair 11 Hem Onc Scenery [address] [place] [address] Health Maintenance Due Date Last Done Comments [...] filedocumented as of this encounter Care Teams Legal Operations Manager Relationship Specialty Start Date End Date Johanne Berman PA-C [facility] [address] [place] [address] PCP - General Physician Bulk Folder 09/23/23 documented as of this encounter
--- OUTSIDE RECORDS SUMMARY | 2024-01-19 23:21 | External Medical Summary | Summary of Care ---
Author Name Unknown Organization [facility] Address [address] [facility] [address] Phone [phone] Care Team Providers Care Manager Laundry Name Role Phone Johanne Berman PA-C Primary Care Provi betina Reason for Visit * Reason Onset Date Comments transfer of records 01/14/2024 Pathology Encounter Details Date Type Department Care Team (Late st Contact Info) Description 01/14/2024 Telephone Hematology/Oncology [facility] State Mia Andres [address] [place] [id number] Trung Vargsa MD 200 [facility] [place] [id number] transfer of records (Pathology) Allergies No known [...] AM EDT Per 03/2018 pathology report at [facility]: "Addendum We have received a report from [facility] on this patient and a copy of the report is on file in our department. " Called [facility] and spoke to Suzanne. She will get this sent to our office. * Telephone Encounter - Jeana Sandhu OSA [...] at that time was only going to [facility] in [place]. Scheduling- please request pathology reports from patients lung biopsy done in 2018 at [facility]. Thank you. * Telephone Encounter - Jeana Sandhu OSA - 01/14/2024 1:44 PM EDT Not fx back from [facility] stating that they do not have anything in 2014 with this info on it * Telephone Encounter - Jeana Sandhu OSA - 01/14/2024 12:58 PM EDT Fax sent * Telephone Encounter - Tuan Barba RN - 01/14/2024 11:59 AM EDT Scheduling- Please send request to [facility] for pathology results/reports from patients hemicolectomy surgery that was done in 2013. Thank you. Per Dr. Vargas- would like NGS testing done on pathology from 2013 if available. documented in this encounter Plan of Treatment Upcoming Encounters Date Type Department Care Team (Late st Contact Info) Description 01/26/2024 8:45 AM EDT Office Visit Hematology/Oncology [address] [place] [phone] Trung Vargas MD 200 [facility] [place] [address] 01/26/2024 9:15 AM EDT Hem/Onc Treatment Hematology/Oncology Treatment, [address], [place] [phone] Mckenna, Chair 1 Hem Onc [address] [place] [address] 02/09/2024 8:00 AM EST Hem/Onc Treatment Hematology/Oncology Treatment, [address], [place] [address] Mckenna, Chair 1 Hem Onc [address] [place] [address] 02/23/2024 8:00 AM EST Office Visit Hematology/Oncology [facility] [address] [place] [phone] Virginia Camarena CRNP [address] [place] [address] 02/23/2024 8:30 AM EST Hem/Onc Treatment Hematology/Oncology Treatment, [place] [address] [place], [place] [address] Mckenna, Chair 11 Hem Onc Scenery [address] [place] [address] Health Maintenance Due Date Last Done Comments [...] filedocumented as of this encounter Care Teams Manager Laundry Relationship Specialty Start Date End Date Johanne Berman PA-C [facility] [place] [address] [place] [address] PCP - General Physician Steam Plant Operator 09/23/23 documented as of this encounter
--- OUTSIDE RECORDS SUMMARY | 2024-01-19 23:21 | External Medical Summary | Summary of Care ---
Author Name Unknown Organization [facility] Address [address] [facility] [address] Phone [phone] Care Team Providers Care Call Circuit Worker Name Role Phone Johanne Berman PA-C Primary Care Provi betina Reason for Visit * Reason Onset Date Comments transfer of records 01/14/2024 Pathology Encounter Details Date Type Department Care Team (Late st Contact Info) Description 01/14/2024 Telephone Hematology/Oncology [facility] State Mia Andres [address] [place] [id number] Trung Vargas MD 200 [facility] [place] [id number] transfer of records (Pathology) Allergies No known [...] AM EDT Per 03/2018 pathology report at [facility]: "Addendum We have received a report from [facility] on this patient and a copy of the report is on file in our department. " * Telephone Encounter - Jeana Sandhu OSA [...] at that time was only going to [facility] in [place]. Scheduling- please request pathology reports from patients lung biopsy done in 2018 at [facility]. Thank you. * Telephone Encounter - Jeana Sandhu OSA - 01/14/2024 1:44 PM EDT Not fx back from [facility] stating that they do not have anything in 2014 with this info on it * Telephone Encounter - Jeana Sandhu OSA - 01/14/2024 12:58 PM EDT Fax sent * Telephone Encounter - Tuan Barba RN - 01/14/2024 11:59 AM EDT Scheduling- Please send request to [facility] for pathology results/reports from patients hemicolectomy surgery that was done in 2013. Thank you. Per Dr. Vargas- would like NGS testing done on pathology from 2013 if available. documented in this encounter Plan of Treatment Upcoming Encounters Date Type Department Care Team (Late st Contact Info) Description 01/26/2024 8:45 AM EDT Office Visit Hematology/Oncology [address] [place] [phone] Trung Vargas MD 200 [facility] [place] [address] 01/26/2024 9:15 AM EDT Hem/Onc Treatment Hematology/Oncology [address], [address] [address] Mckenna, Chair 1 Hem Onc [address] [place] [address] 02/09/2024 8:00 AM EST Hem/Onc Treatment Hematology/Oncology Treatment, [address] [address] Mckenna, Chair 1 Hem Onc [address] [place] [address] 02/23/2024 8:00 AM EST Office Visit Hematology/Oncology [facility] [place] 200 [facility] [place] [phone] Virginia Camarena CRNP [address] [place], [place] [address] [address] 02/23/2024 8:30 AM EST Hem/Onc Treatment Hematology/Oncology Treatment, [place] [address] [place], [place] [address] Mckenna, Chair 11 Hem Onc Scenery [address] [place] [address] Health Maintenance Due Date Last Done Comments [...] filedocumented as of this encounter Care Teams Call Circuit Worker Relationship Specialty Start Date End Date Johanne Berman PA-C [address] [place] [address] PCP - General Physician Testing Analyst 09/23/23 documented as of this encounter
--- OUTSIDE RECORDS SUMMARY | 2024-01-19 23:21 | External Medical Summary | Summary of Care ---
Author Name Unknown Organization [facility] Address [address] [facility] [address] Phone [phone] Care Team Providers Care Tree Girdler Name Role Phone Johanne Berman PA-C Primary Care Provi betina Reason for Visit * Reason Onset Date Comments Order Request 01/15/2024 rosendo Encounter Details Date Type Department Care Team (Late st Contact Info) Description 01/15/2024 Telephone Hematology/Oncology [facility] State Mia Andres 200 [facility] [place] [phone] Trung Vargas MD 200 [facility] [place] [id number] Order Request (rosendo/) Allergies No known active allergiesdocumented as of [...] encounter Miscellaneous Notes * Telephone Encounter - Tuan Barba RN - 01/15/2024 1:05 PM EDT No other testing for chemotherapy is needed at this time. Further lab work to be completed as patient continues chemotherapy. * Telephone Encounter - Gabriela Atkins OSA - 01/15/2024 12:58 PM EDT Jeana from [facility] is calling, they have orders for DR Vargas cbc/dif, cmp, and magnesium Is there any other testing that needs done? CEA or urine ? If so they will need orders faxed. Please let them know documented in this encounter Plan of Treatment Upcoming Encounters Date Type Department Care Team (Late st Contact Info) Description 01/26/2024 8:45 AM EDT Office Visit Hematology/Oncology [facility] Mckenna [address] [place] [id number] Trung Vargas MD 200 [facility] [place] [address] 01/26/2024 9:15 AM EDT Hem/Onc Treatment Hematology/Oncology Treatment, [address] [place] [phone] Mckenna, Chair 1 Hem Onc [address] [place] [id number] 02/09/2024 8:00 AM EST Hem/Onc Treatment Hematology/Oncology Treatment, [place] 200 [facility], [place] [phone] Mckenna, Chair 1 Hem Onc Scenery 200 [facility] [place] [address] 02/23/2024 8:00 AM EST Office Visit Hematology/Oncology [facility] [place] 200 [facility] [place] [phone] Virginia Camarena CRNP 400 [facility] [place] [address] 02/23/2024 8:30 AM EST Hem/Onc Treatment Hematology/Oncology Treatment, [address] [phone] Mckenna, Chair 11 Hem Onc Scenery 200 [facility] [address] Health Maintenance Due Date Last Done Comments [...] filedocumented as of this encounter Care Teams Tree Girdler Relationship Specialty Start Date End Date Johanne Berman PA-C [address] [place] [address] PCP - General Physician Field Cane Scaler Helper 09/23/23 documented as of this encounter
--- OUTSIDE RECORDS SUMMARY | 2024-01-19 23:21 | External Medical Summary | Summary of Care ---
Author Name Unknown Organization [facility] Address [address] [facility] [address] Phone [phone] Care Team Providers Care Pmp Certified Project Manager Name Role Phone Johanne Berman PA-C Primary Care Provi betina Encounter Details Date Type Department Care Team (Late st Contact Info) Description 08/10/2023 Orders Only [facility] 200 [facility] [place] [phone] Trung Vargas MD 200 [facility] [place] [id number] Allergies No known active allergiesdocumented as of [...] AM EDT Office Visit Hematology/Oncology [place] [employer] [phone] Trung Vargas MD [address] [place] [address] [place] [address] 01/26/2024 9:15 AM EDT Hem/Onc Treatment Hematology/Oncology Treatment [place] [address] [address] [place] [phone] Mckenna, Chair 1 Hem Onc [facility] [place] [address] 02/09/2024 8:00 AM EST Hem/Onc Treatment Hematology/Oncology [address] [facility] [phone] Mckenna, Chair 1 Hem Onc [facility] [place] [place] [address] 02/23/2024 8:00 AM EST Office Visit Hematology/Oncology [place] And[place] [phone] Virginia Camarena CRNP [address] [place] [address] [place] [phone] 02/23/2024 8:30 AM EST Hem/Onc Treatment Hematology/Oncology Treatment, [address] [place] [phone] Mckenna, Chair 11 Hem Onc Scenery [address] [place] [address] Health Maintenance Due Date Last Done Comments [...] - CT (IMAGES ONLY, NO REPORT) Routine 08/10/2023 11:45 AM EDT documented in this encounter Results * RADIOLOGY EXAM - CT (IMAGES ONLY, NO REPORT) (08/10/2023 11:45 AM EDT) 08/10/2023 11:3 6 AM EDT Narrative Scheduling, Silent - 01/18/2024 8:36 AM EDT This is an imaging study not interpreted or resulted by a [facility] or [employer] contracted radiologist. Trung Vargas MD RAD CT documented in this encounter Care Teams Pmp Certified Project Manager Relationship Specialty Start Date End Date Johanne Berman PA-C Caitlin De La Rosa [facility] 1 [place] [address] PCP - General Physician Sr Risk Management Consultant 09/23/23 documented as of this encounter
--- OUTSIDE RECORDS SUMMARY | 2024-01-19 23:21 | External Medical Summary | Summary of Care ---
Author Name Unknown Organization [facility] Address [address] [facility] [place] [address] Phone [phone] Care Team Providers Care Utility Tractor Operator Name Role Phone Johanne Berman PA-C Primary Care Provi betina Reason for Visit * Reason Onset Date Comments Order Request 01/18/2024 Chest x-ray Encounter Details Date Type Department Care Team (Late st Contact Info) Description 01/18/2024 Telephone Family Practice [facility] State Mia Andres [address] [place] [id number] Johanne Berman PA-C 800 [facility] [address] [place] [address] Order Request (Chest x-ray ) Allergies No [...] EDT I called Krish back at the [facility] to let her know that we are not the patient's PCP. She said they have his PCP listed as Trung Vargas. I informed her that Dr. Trung Vargas is not a primary care physician, he's a passenger service agent/oncologist. I asked what the CXR order is [...] any questions/concerns, Krish can be reached at [phone] * Telephone Encounter - Amanda Mendoza OSA - 01/18/2024 11:52 AM EDT krish from [facility] requested a order for a chest x- ray for the pt documented in this encounter Plan of Treatment Upcoming Encounters Date Type Department Care Team (Late st Contact Info) Description 01/26/2024 8:45 AM EDT Office Visit Hematology/Oncology [address] [place] [phone] Trung Vargas MD 200 [facility] [place] [address] 01/26/2024 9:15 AM EDT Hem/Onc Treatment Hematology/Oncology Treatment, [address] [phone] Mckenna, Chair 1 Hem Onc [address] [place] [address] 02/09/2024 8:00 AM EST Hem/Onc Treatment Hematology/Oncology Treatment, [address] [phone] Mckenna, Chair 1 Hem Onc [address] [place] [address] 02/23/2024 8:00 AM EST Office Visit Hematology/Oncology [facility] [address] [place] [phone] Virginia Camarena CRNP [address] [place] [address] [place] [address] 02/23/2024 8:30 AM EST Hem/Onc Treatment Hematology/Oncology Treatment, [place] [address] [place] [address] Mckenna, Chair 11 Hem Onc Scenery [address] [place] [address] Health Maintenance Due Date Last Done Comments [...] filedocumented as of this encounter Care Teams Utility Tractor Operator Relationship Specialty Start Date End Date Johanne Berman PA-C [address] [place] [address] PCP - General Physician Pad Extractor Tender 09/23/23 documented as of this encounter
--- OUTSIDE RECORDS SUMMARY | 2024-01-19 23:21 | External Medical Summary | Summary of Care ---
Author Name Unknown Organization [facility] Address [address] [facility] [place] [address] Phone [phone] Care Team Providers Care Simulation Educator Name Role Phone Johanne Berman PA-C Primary Care Provi betina Reason for Visit * Reason Onset Date Comments FYI 01/08/2024 Sam Encounter Details Date Type Department Care Team (Late st Contact Info) Description 01/08/2024 Telephone Hematology/Oncology [place] [place] Mia Andres [address] [place] [phone] Services, Scheduling [address] [place] [address] FYI (Sam) Allergies No known active allergiesdocumented as of [...] UT) Oral Capsule Take by mouth. Active documented as of this encounter (statuses [...] Telephone Encounter - Tuan Barba RN - 01/18/2024 9:[address] Vargas- images are now uploaded. * Telephone Encounter - Tuan Barba RN - 01/18/2024 8:06 AM EDT Message sent to CHRISTINE Sorenson who had the discs last week. * Telephone Encounter - Trung Vargas MD - 01/16/2024 9:48 AM EDT I see that they are not yet uploaded into our system Once they are uploaded into our system, will have to ask radiologist who reviewed the latest CT scan to give a comparison report. * Telephone Encounter - Tuan Barba RN - 01/15/2024 9:[address] Sam smith regarding images. * Telephone Encounter - Ranulfo Chino OSA - 01/11/2024 12:41 PM EDT Received disc in interoffice mail today with 10/27 and 08/27 CT images on it. * Telephone Encounter - Tuan Barba RN - 01/08/2024 3:47 PM EDT Lj- can we contact [facility] and see if they are able to send us a disc of the CT from 05/12/23? Report is already in Care Everywhere. Thanks. * Telephone Encounter - Jeana Sandhu OSA - 01/08/2024 3:43 PM EDT Yes pts daughter just dropped off at clinic Theses were taken to Radiology at * Telephone Encounter - Tuan Barba RN - 01/08/2024 3:26 PM EDT Scheduling- were discs received? * Telephone Encounter - Agustina Padgett OSA - 01/08/2024 12:42 PM EDT DIL, Abeba is calling to state that she got the images of the last 2 scans the patient had done[place] and will be dropping them off later today. As for the Ct done on 05/12/23, that was done in [place] and [place] did not have access to those images. If they are still needed, you will have to contact the [place] office to see if they can send them. documented in this encounter Plan of Treatment Upcoming Encounters Date Type Department Care Team (Late st Contact Info) Description 01/26/2024 8:45 AM EDT Office Visit Hematology/Oncology [facility] [place] [address] [phone] Trung Vargas MD 200 [place] [address] 01/26/2024 9:15 AM EDT Hem/Onc Treatment Hematology/Oncology Treatment, [address] [phone] Mckenna, Chair 1 Hem Onc [place] [address] [address] 02/09/2024 8:00 AM EST Hem/Onc Treatment Hematology/Oncology Treatment, [address] [phone] Mckenna, Chair 1 Hem Onc [place] [address] [address] 02/23/2024 8:00 AM EST [facility] [address] [place] [phone] Virginia Camarena CRNP [address] [place] [address] 02/23/2024 8:30 AM EST Hem/Onc Treatment Hematology/Oncology Treatment, [place] [address] [place] [phone] Mckenna, Chair 11 Hem Onc [facility] 200 [place] [address] Health Maintenance Due Date Last Done Comments [...] filedocumented as of this encounter Care Teams Simulation Educator Relationship Specialty Start Date End Date Johanne Berman PA-C [address] [place] [address] PCP - General Physician Monument Letterer 09/23/23 documented as of this encounter
--- OUTSIDE RECORDS SUMMARY | 2024-01-19 23:22 | External Medical Summary | Summary of Care ---
Author Name Unknown Organization [facility] Address [address] [facility] [address] Phone [phone] Care Team Providers Care Emergency Department Manager Name Role Phone Johanne Berman PA-C Primary Care Provi betina Reason for Visit * Reason Onset Date Comments transfer of records 01/14/2024 Pathology Encounter Details Date Type Department Care Team (Late st Contact Info) Description 01/14/2024 Telephone Hematology/Oncology [facility] State Mia Andres [address] [place] [id number] Trung Vargas MD 200 [facility] [place] [id number] transfer of records (Pathology) Allergies No known active allergiesdocumented as of this encounter (statuses as of 01/14/2024) Medications Medication Sig Dispensed Refills Start Date [...] as of this encounter (statuses as of 01/14/2024) Active Problems Problem Noted Date Diagnosed Date 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 Called patients DIL, she states the patient at that time was only going to [facility] in [place]. Scheduling- please request pathology reports from patients lung biopsy done in 2018 at [facility]. Thank you. * Telephone Encounter - Jeana Sandhu OSA - 01/14/2024 1:44 PM EDT Not fx back from [facility] stating that they do not have anything in 2013 with this info on it * Telephone Encounter - Jeana Sandhu OSA - 01/14/2024 12:58 PM EDT Fax sent * Telephone Encounter - Tuan Barba RN - 01/14/2024 11:59 AM EDT Scheduling- Please send request to [facility] for pathology results/reports from patients hemicolectomy surgery that was done in 2013. Thank you. Per Dr. Vargas- would like NGS testing done on pathology from 2013 if available. documented in this encounter Plan of Treatment Upcoming Encounters Date Type Department Care Team (Late st Contact Info) Description 01/26/2024 8:45 AM EDT Office Visit Hematology/Oncology State Mia Thompson [address] [place] [address] Trung Vargas MD 200 [facility] [place] [id number] 01/26/2024 9:15 AM EDT Hem/Onc Treatment Hematology/Oncology Treatment, [place] 200 [facility] [place] [phone] Mckenna, Chair 1 Hem Onc Scenery 200 [facility] [place], [place] [address] 02/09/2024 8:00 AM EST Hem/Onc Treatment Hematology/Oncology Treatment, [place] 200 [facility], [place] [phone] Mckenna, Chair 1 Hem Onc [facility] [address] [place] [address] Dr [place], [place] [address] 02/23/2024 8:00 AM EST Office Visit Hematology/Oncology [facility] 200 [facility] [place], [place] [phone] Virginia Camarena CRNP [address] [place], [place] [address] [address] 02/23/2024 8:30 AM EST Hem/Onc Treatment Hematology/Oncology Treatment, [address], [place] [phone] Mckenna, Chair 11 Hem Onc Scenery 200 [facility] [place], [place] [address] Health Maintenance Due Date Last Done Comments Depression Screening 1952 COVID-19 Vaccine ( season) 2023 05/08/2021, 12/24/2020, 11/27/2020, Additional history exists Influenza Vaccine (FLU shot) (#1) 2023 01/09/2023, 01/09/2023, 12/27/2021, Additional history exists DTap/Tdap Vaccines (2 - Td or Tdap) 10/08/2032 10/08/2022 Zoster Vaccines Completed 03/02/2018, 1004/2017, 11/03/2017 Pneumococcal Vaccine: 65+ Years Completed 12/16/2022, [...] filedocumented as of this encounter Care Teams Emergency Department Manager Relationship Specialty Start Date End Date Johanne Berman PA-C [address] [place] [address] [place] [address] PCP - General Physician Shellacker 09/23/23 documented as of this encounter
--- OUTSIDE RECORDS SUMMARY | 2024-01-19 23:22 | External Medical Summary | Summary of Care ---
Author Name Unknown Organization [facility] Address [address] [facility] [place] [address] Phone [phone] Care Team Providers Care Project Manager Retail Name Role Phone Johanne Berman PA-C Primary Care Provi betina Reason for Visit * Reason Onset Date Comments FYI 01/08/2024 Sam Encounter Details Date Type Department Care Team (Late st Contact Info) Description 01/08/2024 Telephone Hematology/Oncology [place] Mia Andres [address] [place] [id number] Services, Scheduling [address] [place] [address] FYI (Sam) Allergies No known active allergiesdocumented as of this encounter (statuses as of 01/11/2024) Medications Medication Sig Dispensed Refills Start Date [...] as of this encounter (statuses as of 01/11/2024) Active Problems Problem Noted Date Diagnosed Date Malignant neoplasm of ascending colon 01/08/2024 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 * Telephone Encounter - Tuan Barba RN - 01/08/2024 3:47 PM EDT Lj- can we contact [facility] and see if they are able [...] Padgett OSA - 01/08/2024 12:42 PM EDT DIL Abeba is calling to state that she got the images of the last 2 scans the patient had donein [place] and will be dropping them off later today. As for the Ct done on 05/12/23, that was done in [place] and [place] did not have access to those images. If they are still needed, you will have to contact the [place] office to see if they can send them. 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
--- OUTSIDE RECORDS SUMMARY | 2024-01-19 23:22 | External Medical Summary | Summary of Care ---
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 * Telephone Encounter - Tuan Barba RN - 01/14/2024 12:44 PM EDT Pended script for Zofran PRN for patient on mFOLFOX. documented in this encounter Plan of Treatment Upcoming Encounters Date Type Department Care Team (Late st Contact Info) Description 01/26/2024 8:45 AM EDT Office Visit Hematology/Oncology [place] And[place] [address] [place] [address] Sharyn Vargas MD 200 [place] [address] [place] [address] 01/26/2024 9:15 AM EDT Hem/Onc Treatment Hematology/Oncology Treatment, [place] 200 [facility], [place] [phone] Mckenna, Chair 1 Hem Onc Scenery 200 [facility] [place], [place] [address] 02/09/2024 8:00 AM EST Hem/Onc Treatment Hematology/Oncology Treatment, [place] 200 [facility], [place] [phone] Mckenna, Chair 1 Hem Onc [facility] 200 [facility] [place], [place] [address] 02/23/2024 8:00 AM EST Office Visit Hematology/Oncology 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
--- OUTSIDE RECORDS SUMMARY | 2024-01-19 23:22 | External Medical Summary | Summary of Care ---
Author Name Unknown Organization [facility] Address [address] [facility] [place] [address] Phone [phone] Care Team Providers Care Fly Finisher Name Role Phone Johanne Berman PA-C Primary Care Provi betina Reason for Visit * Reason Onset Date Comments Medical Questions 01/14/2024 Encounter Details Date Type Department Care Team (Late st Contact Info) Description 01/14/2024 Telephone Hematology/Oncology [facility] State Mia Andres [address] [place] [id number] Trung Vargas MD [address] [place] [id number] Medical Questions Allergies No known active allergiesdocumented as of [...] Encounter - Tuan Barba RN - 01/14/2024 12:32 PM EDT Pt continuing with mFOLFOX, pended script for Zofran although patient has tolerated treatment well in the past. Script sent in separate refill encounter. Called Rhonda Matthew, spoke with [facility] --- [phone] Advised regarding Zofran script. They need this sent to [facility]. Also advised that patient will need labs done Fridays prior to chemotherapy and these will be every2 weeks. Next one due 01/21. Asked our office to fax the orders to [phone]. Lab orders faxed. * Telephone Encounter - Katlyn Titus CPhT - 01/14/2024 12:28 PM EDT Reese states they have paperwork advising pt on Zofran and Compazine. I do not see rx;s for thosemeds. They would need rx's sen [facility] if appropriate. Thanks, Katlyn Titus CPhT, Tech [facility] ([facility]) [address] [place] [address] documented in this encounter Plan of Treatment Upcoming Encounters Date Type Department Care Team (Late st Contact Info) Description 01/14/2024 1:45 PM EDT Immunization/Injecti on Hematology/Oncology Treatment, [place] 200 [facility] [place] [place] [address] Mckenna, Chair 8 Hem On[address] [place] [address] 01/26/2024 8:45 AM EDT Office Visit Hematology/Oncology [place] Andres [address] [place] [address] Trung Vargas MD [address] [place] [address] 01/26/2024 9:15 AM EDT Hem/Onc Treatment Hematology/Oncology Treatment, [place] 200 [facility], [place] [phone] Mckenna, Chair 1 Hem Onc Scenery 200 [facility] [place] [address] 02/09/2024 8:00 AM EST Hem/Onc Treatment Hematology/Oncology Treatment, [place] 200 [facility] [place], [place] [phone] Mckenna, Chair 1 Hem Onc [address] [place], [place] [address] 02/23/2024 8:00 AM EST Office Visit Hematology/Oncology [facility] 200 [facility] [place], [place] [phone] Virginia Camarena CRNP 400 [facility] [address] 02/23/2024 8:30 AM EST Hem/Onc Treatment Hematology/Oncology Treatment, [place] 200 [facility] [place], [place] [phone] Mckenna, Chair 11 Hem Onc Scenery 200 [facility] [place] [address] Health Maintenance Due Date Last Done Comments [...] filedocumented as of this encounter Care Teams Fly Finisher Relationship Specialty Start Date End Date Johanne Berman PA-C [address] [place] 1 [place] [address] PCP - General Physician Advertising Strategist 09/23/23 documented as of this encounter
--- OUTSIDE RECORDS SUMMARY | 2024-01-19 23:22 | External Medical Summary | Summary of Care ---
Author Name Unknown Organization [facility] Address [address] [facility] [address] Phone [phone] Care Team Providers Care Office Administration Instructor Name Role Phone Johanne Berman PA-C Primary Care Provi betina Reason for Visit * Reason Onset Date Comments transfer of records 01/14/2024 Pathology Encounter Details Date Type Department Care Team (Late st Contact Info) Description 01/14/2024 Telephone Hematology/Oncology [facility] State Mia Andres [address] [place] [id number] Trung Vargas MD 200 [facility] [place] [id number] transfer of records (Pathology) Allergies No known [...] encounter Miscellaneous Notes * Telephone Encounter - Jeana Sandhu OSA [...] at that time was only going to [facility] in [place]. Scheduling- please request pathology reports from patients lung biopsy done in 2018 at [facility]. Thank you. * Telephone Encounter - Jeana Sandhu OSA - 01/14/2024 1:44 PM EDT Not fx back from [facility] stating that they do not have anything in 2013 with this info on it * Telephone Encounter - Jeana Sandhu OSA - 01/14/2024 12:58 PM EDT Fax sent * Telephone Encounter - Tuan Barba RN - 01/14/2024 11:59 AM EDT Scheduling- Please send request to [facility] for pathology results/reports from patients hemicolectomy surgery that was done in 2013. Thank you. Per Dr. Vargas- would like NGS testing done on pathology from 2013 if available. documented in this encounter Plan of Treatment Upcoming Encounters Date Type Department Care Team (Late st Contact Info) Description 01/26/2024 8:45 AM EDT Office Visit Hematology/Oncology [facility] M[place] [address] [facility] [address] [place], [place] [phone] Trung Vargas MD 200 [facility] [place] [address] 01/26/2024 9:15 AM EDT Hem/Onc Treatment Hematology/Oncology Treatment, [place] 200 [facility] [place] [phone] Mckenna, Chair [address] [place] [address] 02/09/2024 8:00 AM EST Hem/Onc Treatment Hematology/Oncology Treatment, [place] 200 [facility], [place] [phone] Mckenna, Chair 1 Hem Onc [facility] 200 [facility] [place] [address] 02/23/2024 8:00 AM EST Office Visit Hematology/Oncology [facility] Mckenna [place] 200 [facility], [place] [phone] Virginia Camarena CRNP 400 [facility] [address] 02/23/2024 8:30 AM EST Hem/Onc Treatment Hematology/Oncology Treatment, [address] [place], [place] [phone] Mckenna, Chair 11 Hem Onc [facility] 200 [facility] [place] [address] Health Maintenance Due Date Last Done Comments [...] filedocumented as of this encounter Care Teams Office Administration Instructor Relationship Specialty Start Date End Date Johanne Berman PA-C [address] [place] 1 [place] [address] PCP - General Physician Team Manager 09/23/23 documented as of this encounter
--- OUTSIDE RECORDS SUMMARY | 2024-01-19 23:22 | External Medical Summary | Summary of Care ---
Author Name Unknown Organization [facility] Address [address] [facility] [place] [address] Phone [phone] Care Team Providers Care Biochemistry Specialist Name Role Phone Johanne Berman PA-C Primary Care Provi betina Reason for Visit * Reason Onset Date Comments Follow Up 01/13/2024 S/P C1,D1 FOLFOX (continuation of previous plan from [facility]) Encounter Details Date Type Department Care Team (Late st Contact Info) Description 01/13/2024 Telephone Hematology/Oncology State Mia Thompson [address] [place] [phone] Trung Vargas MD [address] [place] [id number] Follow Up (S/P C1,D1 FOLFOX (continuation ... 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 Spoke with his DIL Abeba who states the patient went to the [employer] today, voiced no concerns at this time that she is aware of. Verified that if he has any issues or concerns to please call our office and or send a message through the portal. She verbalized understanding and was appreciative of all the information/help with her KAYA. documented in this encounter Plan of Treatment Upcoming Encounters Date Type Department Care Team (Late st Contact Info) Description 01/14/2024 1:45 PM EDT Immunization/Injecti on Hematology/Oncology Treatment, [address] [place] [phone] Mckenna, Chair 8 Hem Onc [address] [place] [address] 01/26/2024 8:45 AM EDT Office Visit Hematology/Oncology [facility] M[place] [address] [place] [phone] Trung Vargas MD [address] [place] [address] [place] [address] 01/26/2024 9:15 AM EDT Hem/Onc Treatment Hematology/Oncology Treatment, [address] [place] [phone] Mckenna, Chair 1 Hem Onc [place] [address] [address] 02/09/2024 8:00 AM EST Hem/Onc Treatment Hematology/Oncology Treatment, [address] [place] [phone] Mckenna, Chair 1 Hem Onc [place] [address] [place] [address] 02/23/2024 8:00 AM EST Office Visit Hematology/Oncology [place] [address] [place] [phone] Virginia Camarena CRNP [address] [place] [address] 02/23/2024 8:30 AM EST Hem/Onc Treatment Hematology/Oncology Treatment, [place] 200 [facility] [place] [phone] Mckenna, Chair 11 Hem Onc [address] [place] [address] Health Maintenance Due Date Last Done Comments [...] filedocumented as of this encounter Care Teams Biochemistry Specialist Relationship Specialty Start Date End Date Johanne Berman PA-C [facility] [address] [place] 1 [place] [address] PCP - General Physician Tape Recorder Repairer 09/23/23 documented as of this encounter
--- OUTSIDE RECORDS SUMMARY | 2024-01-19 23:22 | External Medical Summary | Summary of Care ---
Author Name Unknown Organization [facility] Address [address] [facility] [address] Phone [phone] Care Team Providers Care Grants Administrator Name Role Phone Johanne Berman PA-C Primary Care Provi betina Encounter Details Date Type Department Care Team (Late st Contact Info) Description 11/02/2023 Orders Only [facility] [place] [place] 200 [facility] [place] [phone] Trung Vargas MD 200 [facility] [place] [id number] Allergies No known active allergiesdocumented as of [...] AM EDT Office Visit Hematology/Oncology [place] [phone] Trung Vargas MD [address] [place] [address] [place] [address] 01/26/2024 9:15 AM EDT Hem/Onc Treatment Hematology/Oncology Treatment [place] [address] [address] [place] [phone] Mckenna, Chair 1 Hem Onc [facility] [place] [address] [address] 02/09/2024 8:00 AM EST Hem/Onc Treatment Hematology/Oncology Treatment [address] [facility] [phone] Mckenna, Chair 1 Hem Onc [facility] [place] [address] 02/23/2024 8:00 AM EST Office Visit Hematology/Oncology [place] [phone] Virginia Camarena CRNP [address] [place] [address] [place] [phone] 02/23/2024 8:30 AM EST Hem/Onc Treatment Hematology/Oncology Treatment, [address] [place] [phone] Mckenna, Chair 11 Hem Onc Scenery [address] [place] [address] Health Maintenance Due Date Last Done Comments [...] CT (IMAGES ONLY, NO REPORT) Routine 11/02/2023 9:00 AM EDT documented in this encounter Results * RADIOLOGY EXAM - CT (IMAGES ONLY, NO REPORT) (11/02/2023 9:00 AM EDT) 11/02/2023 8:59 AM EDT Narrative Scheduling, Silent - 01/18/2024 8:35 AM EDT This is an imaging study not interpreted or resulted by a [facility] or [facility] contracted radiologist. Trung Vargas MD RAD CT documented in this encounter Care Teams Grants Administrator Relationship Specialty Start Date End Date Johanne Berman PA-C [facility] Oscar [address] La Rosa [facility] 1 [place] [address] PCP - General Physician Film Archivist 09/23/23 documented as of this encounter
--- OUTSIDE RECORDS SUMMARY | 2024-01-19 23:22 | External Medical Summary | Summary of Care ---
Author Name Unknown Organization [facility] Address [address] [facility] [address] Phone [phone] Care Team Providers Care Nut Cracker Name Role Phone Johanne Berman PA-C Primary Care Provi betina Reason for Visit * Reason Onset Date Comments transfer of records 01/14/2024 Pathology Encounter Details Date Type Department Care Team (Late st Contact Info) Description 01/14/2024 Telephone Hematology/Oncology [facility] State Mia Andres [address] [place] [id number] Trung Vargas MD 200 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 Scheduling- please request pathology reports from patients lung biopsy done in 2018 at [facility]. Thank you. * Telephone Encounter - Jeana [...] AM EDT Scheduling- Please send request to [facility] for pathology results/reports from patients hemicolectomy surgery that was done in 2014. Thank you. Per Dr. Vargas- would like NGS testing done on pathology from 2013 if available. documented in this encounter Plan of Treatment Upcoming Encounters Date Type Department Care Team (Late st Contact Info) Description 01/26/2024 8:45 AM EDT Office Visit Hematology/Oncology [facility] [address] [place] [phone] Trung Vargas MD [address] [place] [address] [place] [address] 01/26/2024 9:15 AM EDT Hem/Onc Treatment Hematology/Oncology [address] [address] Mckenna, Chair 1 Hem Onc [address] [place] [address] 02/09/2024 8:00 AM EST Hem/Onc Treatment Hematology/Oncology [address] [address] Mckenna, Chair 1 Hem Onc [address] [place] [address] 02/23/2024 8:00 AM EST Office Visit Hematology/Oncology [facility] [address] [place] [address] Virginia Camarena CRNP 400 [facility] [place] [address] 02/23/2024 8:30 AM EST Hem/Onc Treatment Hematology/Oncology Treatment, [address] [address] Mckenna, Chair 11 Hem Onc [facility] [address] [place] [address] [place] [address] Health Maintenance Due Date Last Done Comments [...] filedocumented as of this encounter Care Teams Nut Cracker Relationship Specialty Start Date End Date Johanne Berman PA-C [address] [facility] 1 [place] [address] PCP - General Physician Supervisor Paste Mixing 09/23/23 documented as of this encounter
--- OUTSIDE RECORDS SUMMARY | 2024-01-19 23:22 | External Medical Summary | Summary of Care ---
Author Name Unknown Organization [facility] Address [address] [facility] [address] Phone [phone] Care Team Providers Care Readers' Advisory Service Librarian Name Role Phone Johanne Berman PA-C Primary Care Provi betina Encounter Details Date Type Department Care Team (Late st Contact Info) Description 08/10/2023 Orders Only [facility] 200 [facility] [place] [phone] Trung Vargas MD 200 [facility] [place] [id number] Allergies No known active allergiesdocumented as of [...] AM EDT Office Visit Hematology/Oncology Alison Andres [place] [employer] [phone] Trung Vargas MD [address] [place] [address] [place] [address] 01/26/2024 9:15 AM EDT Hem/Onc Treatment Hematology/Oncology Treatment [place] [address] [address] [place] [phone] Mckenna, Chair 1 Hem Onc [facility] [place] [address] 02/09/2024 8:00 AM EST Hem/Onc Treatment Hematology/Oncology [address] [facility] [phone] Mckenna, Chair 1 Hem Onc [facility] [place] [address] 02/23/2024 8:00 AM EST Office Visit Hematology/Oncology Alison Andres [place] [phone] Virginia Camarena CRNP [address] [place] [address] [place] [phone] 02/23/2024 8:30 AM EST Hem/Onc Treatment Hematology/Oncology Treatment, [address] [place] [phone] Mckenna, Chair 11 Hem Onc Scenery [address] [place] [address] Health Maintenance Due Date Last Done Comments [...] CT (IMAGES ONLY, NO REPORT) Routine 08/10/2023 11:40 AM EDT documented in this encounter Results * RADIOLOGY EXAM - CT (IMAGES ONLY, NO REPORT) (08/10/2023 11:40 AM EDT) 08/10/2023 11:3 6 AM EDT Narrative Scheduling, Silent - 01/18/2024 8:36 AM EDT This is an imaging study not interpreted or resulted by a [facility] or [facility] [facility] contracted radiologist. Trung Vargas MD RAD CT documented in this encounter Care Teams Readers' Advisory Service Librarian Relationship Specialty Start Date End Date Johanne Berman PA-C Caitlin De La Rosa [facility] 1 [place] [phone] PCP - General Physician Fixer Supervisor 09/23/23 documented as of this encounter
--- OUTSIDE RECORDS SUMMARY | 2024-01-19 23:22 | External Medical Summary | Summary of Care ---
Author Name Unknown Organization [facility] Address [address] [place] [address] Phone [phone] Care Team Providers Care Manager Resort Name Role Phone Johanne Berman PA-C Primary Care Provi betina Encounter Details Date Type Department Care Team (Late st Contact Info) Description 01/11/2024 Orders Only [facility] [address] [facility] [address] Trung [facility]argas MD 200 [facility] [place] [address] Allergies No known active allergiesdocumented as of [...] AM EDT Hem/Onc Treatment Hematology/Oncolog y Treatment, [place] [address] [place] [address] Mckenna, Chair 2 Hem Onc Sc[place] [address] [place] [address] Encounter for antineoplastic chemotherapy*; Malignant neoplasm metastatic [...] as of this encounter Care Teams Manager Resort Relationship Specialty Start Date End Date Johanne Berman PA-C [address] [place] 1 [place] [phone] PCP - General Physician Clerical Administrative Assistant 09/23/23 documented as of this encounter
--- OUTSIDE RECORDS SUMMARY | 2024-01-19 23:22 | External Medical Summary | Summary of Care ---
Author Name Unknown Organization [facility] Address [address] [facility] [address] Phone [phone] Care Team Providers Care Matching Machine Operator Name Role Phone Johanne Berman PA-C Primary Care Provi betina Reason for Visit * Reason Onset Date Comments Advice 01/11/2024 Dr. Vargas Encounter Details Date Type Department Care Team (Late st Contact Info) Description 01/11/2024 Telephone Hematology/Oncology [facility] State Mia Andres [address] [place] [id number] Trung Vargas MD [address] [place] [id number] Advice (Dr. 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 * Telephone Encounter - Tuan Barba RN - 01/11/2024 11:23 AM EDT Called patients Abeba back, reviewed the pump, GHIS #, our office #, and treatment room guidelines. She verbalized understanding. She states that they are currently living in assisted living at [facility] and are without access to avehicle. They are having to pay a construction driver to bring him to and from his appointments. I advised regarding lab work but she stated that someone from [facility] has been drawing his labs at [facility]. Dr. Vargas- Would it be ok for patient to have labs completed on Thursday as transportation is a largeissue for this patient and his is still recovering from a stroke. They are both living in assisted living. * Telephone Encounter - Agustina Gruber OSA - 01/11/2024 10:56 AM EDT Pt's Abeba called in asking for a nurse to return her call in regards to: They want to know if they will be replacing his pump tomorrow because [facility] and he may not have one for his treatment tomorrow and if that's the case and she doesn't want to relinquish this one of it stops him from being able to get his chemo tomorrow [phone] pt's Abeba documented in this encounter Plan of Treatment Upcoming Encounters Date Type Department Care Team (Latest Contact Info) Description 01/12/2024 11:45 AM EDT Hem/Onc Treatment Hematology/Oncolog y Treatment, [place] [address] [place] [phone] Park, Chair 2 Hem Onc Scen[place] [address] [place] [address] Encounter for antineoplastic chemotherapy*; Malignant neoplasm metastatic [...] filedocumented as of this encounter Care Teams Matching Machine Operator Relationship Specialty Start Date End Date Johanne Berman PA-C [address] [place] 1 [place] [address] PCP - General Physician Coating And Embossing Unit Operator 09/23/23 documented as of this encounter
--- OUTSIDE RECORDS SUMMARY | 2024-01-19 23:22 | External Medical Summary | Summary of Care ---
Author Name Unknown Organization [facility] Address [address] [facility] [place] [address] Phone [phone] Care Team Providers Care Automated Equipment Engineer Technician Name Role Phone Johanne Berman PA-C Primary Care Provi betina Reason for Visit * Reason Onset Date Comments FYI 01/08/2024 Sam Encounter Details Date Type Department Care Team (Late st Contact Info) Description 01/08/2024 Telephone Hematology/Oncology [facility] [place] Mia Andres [address] [place] [id number] Services, Scheduling [address] [place] [address] FYI (Sam) Allergies No known active allergiesdocumented [...] 3:47 PM EDT Lj- can we contact [facility] and see if they are able to [...] last 2 scans the patient had donein [place] and will be dropping them off later today. As for the Ct done on 05/12/23, that was done in [place] and [place] did not have access to those images. If they are still needed, you will have to contact the [place] office to see if they can send them. documented in this encounter Plan of Treatment Upcoming Encounters Date Type Department Care Team (Late st Contact Info) Description 01/26/2024 8:45 AM EDT Office Visit Hematology/Oncology [facility] [place] [address] [phone] Trung Vargas MD [address] [facility] [place] [id number] 01/26/2024 9:15 AM EDT Hem/Onc Treatment Hematology/Oncology Treatment, [address] [address] Mckenna, Chair 1 Hem Onc [place] [address] [address] 02/09/2024 8:00 AM EST Hem/Onc Treatment Hematology/Oncology [address], [address] [address] Mckenna, Chair 1 Hem Onc [place] [address] [address] 02/23/2024 8:00 AM EST Office Visit Hematology/Oncology [facility] Mckenna [place] [address] [place] [address] [phone] Virginia Camarena CRNP [address] [place] [address] 02/23/2024 8:30 AM EST Hem/Onc Treatment Hematology/Oncology Treatment, [place] [address] [place], [place] [address] Mckenna, Chair 11 Hem Onc Scenery [address] [place], [place] [address] Health Maintenance Due Date Last Done Comments [...] filedocumented as of this encounter Care Teams Automated Equipment Engineer Technician Relationship Specialty Start Date End Date Johanne Berman PA-C [address] [place] 1 [place] [address] PCP - General Physician Charge Poster 09/23/23 documented as of this encounter
--- OUTSIDE RECORDS SUMMARY | 2024-01-19 23:22 | External Medical Summary | Summary of Care ---
Author Name Unknown Organization [facility] Address [address] [facility] [address] Phone [phone] Care Team Providers Care Church History Teacher Name Role Phone Johanne Berman PA-C Primary Care Provi betina Reason for Visit * Reason Onset Date Comments Order Request 01/15/2024 rosendo Encounter Details Date Type Department Care Team (Late st Contact Info) Description 01/15/2024 Telephone Hematology/Oncology [facility] State Mia Andres 200 [facility] [place] [id number] Trung Vargas MD 200 [facility] [place] [id number] Order Request (rosendo/) Allergies No known active [...] 01/26/2024 8:45 AM EDT Office Visit Hematology/Oncology [facility] Mckenna [address] [place] [id number] Trung Vargas MD 200 [facility] [place] [address] 01/26/2024 9:15 AM EDT Hem/Onc Treatment Hematology/Oncology Treatment, [address] [place] [phone] Mckenna, Chair 1 Hem Onc [address] [place] [id number] 02/09/2024 8:00 AM EST Hem/Onc Treatment Hematology/Oncology Treatment, [place] 200 [facility], [place] [phone] Mckenna, Chair 1 Hem Onc Scenery 200 [facility] [place] [address] 02/23/2024 8:00 AM EST Office Visit Hematology/Oncology [facility] [place] 200 [facility] [place] [phone] Virginia Camarena CRNP 400 [facility] [place] [address] 02/23/2024 8:30 AM EST Hem/Onc Treatment Hematology/Oncology Treatment, [address] [phone] Mckenna, Chair 11 Hem Onc Scenery 200 [facility] [place] [address] Health Maintenance Due Date Last Done Comments [...] filedocumented as of this encounter Care Teams Church History Teacher Relationship Specialty Start Date End Date Johanne Berman PA-C [address] [place] 1 [place] [address] PCP - General Physician Respite Provider 09/23/23 documented as of this encounter
--- OUTSIDE RECORDS SUMMARY | 2024-01-19 23:22 | External Medical Summary | Summary of Care ---
Author Name Unknown Organization [facility] Address [address] [facility] [address] Phone [phone] Care Team Providers Care Scheduling Assistant Name Role Phone Johanne Berman PA-C Primary Care Provi betina Reason for Visit * Reason Onset Date Comments transfer of records 01/14/2024 Pathology Encounter Details Date Type Department Care Team (Late st Contact Info) Description 01/14/2024 Telephone Hematology/Oncology [facility] State Mia Andres [address] [place] [phone] Trung Vargas MD 200 [facility] [place] [id number] transfer of records (Pathology) Allergies No known [...] EDT Scheduling- Please send request to [facility] for pathology results/reports from patients hemicolectomy surgery that was done in 2013. Thank you. Per Dr. Vargas- would like NGS testing done on pathology from 2013 if available. documented in this encounter Plan of Treatment Upcoming Encounters Date Type Department Care Team (Late st Contact Info) Description 01/14/2024 1:45 PM EDT Immunization/Injecti on Hematology/Oncology [address], [address] [phone] Mckenna, Chair 8 Hem Onc Scenery [address] [place] [address] [employer] [employer] [place] [address] [address] 01/26/2024 8:45 AM EDT Office Visit Hematology/Oncology [address] [employer] [phone] Trung Vargas MD 200 [facility] [employer] [address] 01/26/2024 9:15 AM EDT Hem/Onc Treatment Hematology/Oncology [address], [address] [phone] Mckenna, Chair 1 Hem Onc Scenery 200 [facility] [place] [address] 02/09/2024 8:00 AM EST Hem/Onc Treatment Hematology/Oncology [address], [address] [phone] Mckenna, Chair 1 Hem Onc Scenery 200 [facility] [place] [address] 02/23/2024 8:00 AM EST Office Visit Hematology/Oncology [facility] [address] [employer], [place] [address] Virginia Camarena CRNP [address] [place] [address] 02/23/2024 8:30 AM EST Hem/Onc Treatment Hematology/Oncology Treatment, [employer] 200 [facility], [place] [address] Mckenna, Chair 11 Hem Onc [facility] 200 [facility], [place] [address] Health Maintenance Due Date Last Done Comments [...] filedocumented as of this encounter Care Teams Scheduling Assistant Relationship Specialty Start Date End Date Johanne Berman PA-C [address] [place] [address] [place] [address] PCP - General Physician Supervisor [employer] 09/23/23 documented as of this encounter
--- OUTSIDE RECORDS SUMMARY | 2024-01-19 23:22 | External Medical Summary | Summary of Care ---
Author Name Unknown Organization [facility] Address [address] [facility] [place] [address] Phone [phone] Care Team Providers Care Plumbing Assembler Installer Name Role Phone Johanne Berman PA-C Primary Care Provi betina Reason for Visit * Reason Onset Date Comments FYI 01/08/2024 Sam Encounter Details Date Type Department Care Team (Late st Contact Info) Description 01/08/2024 Telephone Hematology/Oncology [place] Mia Andres [address] [place] [id number] Services, Scheduling [address] [place] [address] FYI (Sam) Allergies No known active allergiesdocumented as of this encounter (statuses as of 01/16/2024) Medications Medication Sig Dispensed Refills Start Date [...] as of this encounter (statuses as of 01/16/2024) Active Problems Problem Noted Date Diagnosed Date Malignant neoplasm of ascending colon 01/08/2024 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 Vargas - sarah regarding images. * Telephone Encounter - Ranulfo Chino OSA - 01/11/2024 12:41 PM EDT Received disc in interoffice mail today with 10/27 and 08/27 CT images on it. * Telephone Encounter - Tuan Barba RN - 01/08/2024 3:47 PM EDT Lj- can we contact [facility] and see if they are [...] Padgett OSA - 01/08/2024 12:42 PM EDT Abeba LEE is calling to state that she got the images of the last 2 scans the patient had donein [place] and will be dropping them off later today. As for the Ct done on 05/12/23, that was done in [place] and [place] did not have access to those images. If they are still needed, you will have to contact the [place] office to see if they can send them. documented in this encounter Plan of Treatment Upcoming Encounters Date Type Department Care Team (Late st Contact Info) Description 01/26/2024 8:45 AM EDT Office Visit Hematology/Oncology [facility] [place] 200 [facility] [place] [phone] Trung Vargas MD 200 [facility] [place] [address] 01/26/2024 9:15 AM EDT Hem/Onc Treatment Hematology/Oncology Treatment, [address] [phone] Mckenna, Chair 1 Hem Onc Scenery [address] [place] [address] [place] [address] 02/09/2024 8:00 AM EST Hem/Onc Treatment Hematology/Oncology Treatment, [address] [address] Mckenna, Chair 1 Hem Onc [facility] 200 [facility] [place] [address] 02/23/2024 8:00 AM EST Office Visit Hematology/Oncology [facility] [place] 200 [address] [place] [place] [phone] Virginia Camarena CRNP [address] [place], [place] [address] [address] 02/23/2024 8:30 AM EST Hem/Onc Treatment Hematology/Oncology Treatment, [address] [phone] Mckenna, Chair 11 Hem Onc Scenery 200 [address] [place] [place] [address] Health Maintenance Due Date Last Done Comments [...] filedocumented as of this encounter Care Teams Plumbing Assembler Installer Relationship Specialty Start Date End Date Johanne Berman PA-C [address] [place] [address] [place] [address] PCP - General Physician Lacer And Tier 09/23/23 documented as of this encounter
--- OUTSIDE RECORDS SUMMARY | 2024-01-19 23:22 | External Medical Summary | Summary of Care ---
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) Malignant neoplasm of ascending colon (HCC) Procedures [place] LEUCOVORIN CALCIUM INJECTION [place] PALONOSETRON HCL [place] FLUOROURACIL INJECTION [place] OXALIPLATIN Trung Vargas MD 200 [facility] [place] [address] Anc Hem/Onc [address] [address] Referral ID Status Reason Start Date Expiration Date V isits Requested Visits Authorized [id number] Authorized 01/08/2024 04/04/2099 [id number] Encounter Details Date Type Department Care Team (Latest Contact Info) Description 01/14/2024 1:45 PM EDT Immunization/ Injection Hematology/Oncology Treatment, [address] [place] [address] Mckenna, Chair 8 Hem Onc [address] [place] [address] Encounter for antineoplastic chemotherapy*; 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 Patient arrived today s/p 46 hours of 5FU infusion. Overall he is feeling okay, just very fatigued and still c/o congestion. RN encouraged patient to try taking an allergy pill like Claritin and try some nasal spray. Patient still would like to not take more pills than he already dose but is agreeable to trying Claritin at this point. He will see if this help with his congestion and runny nose. Port flushed with NSS, blood return noted, and port locked with Heparin. Port needle removed. Patient left facility today in stable condition and denied further needs at this time. documented in this encounter Plan of Treatment Upcoming Encounters Date Type Department Care Team (Late st Contact Info) Description 01/26/2024 8:45 AM EDT Office Visit Hematology/Oncology [place] [address] [place] [phone] Trung Vargas MD [address] [place] [address] [address] 01/26/2024 9:15 AM EDT Hem/Onc Treatment Hematology/Oncology Treatment, [place] 200 [place] [phone] Mckenna, Chair 1 Hem Onc Scenery 200 [facility] [place] [address] 02/09/2024 8:00 AM EST Hem/Onc Treatment Hematology/Oncology Treatment, [place] 200 [facility], [place] [phone] Mckenna, Chair 1 Hem Onc Scenery 200 [place] [place] [address] 02/23/2024 8:00 AM EST Office Visit Hematology/Oncology [facility] 200 [facility] [place], [place] [phone] Virginia Camarena CRNP [address] [place] [address] [place] [address] 02/23/2024 8:30 AM EST Hem/Onc Treatment Hematology/Oncology Treatment, [place] 200 [facility], [place] [phone] Mckenna, Chair 11 Hem Onc Scenery 200 [facility] [place] [address] Health Maintenance Due Date Last Done Comments [...] as of this encounter Visit Diagnoses Diagnosis Encounter for antineoplastic chemotherapy- Primary 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) Malignant neoplasm of ascending colon (HCC) Malignant neoplasm of ascending colon Adjustment and management of infusion pump Fitting and adjustment of other device documented in this encounter Administered Medications Active Administered Medications - up to 3 most recent administrations Medication Order MAR Action Action Date Dose Rate Site hEParin 100 UNIT/ML Lock Flush inj 500 Units 500 Units (5 mL), IV Lock, PRN Other, IV Flush, Starting on Deedee 01/14/24 at 1350, Until Thu01/15/24 at 1349, For 24 hours, Do not flush if lock, PICC, or central line not in place; IV infusing or unable to flush. Given 01/14/2024 1:50 PM EDT 500 Units sodium chloride 0.9 % flush central line 10 mL 10 mL, IV Push, PRN Other, IV Flush, Starting on Deedee 01/14/24 at 1350, Until Thu01/15/24 at 1349, For 24 hours, Do not flush if lock, PICC, or central line not in place; IV infusing or unable to flush. Given 01/14/2024 1:50 PM EDT 10 mL documented in this encounter Care Teams Neurology Specialist Relationship Specialty Start Date End Date Johanne Berman PA-C [address] [place] [address] PCP - General Physician Heading And Priming Operator 09/23/23 documented as of this encounter
--- OUTSIDE RECORDS SUMMARY | 2024-01-19 23:22 | External Medical Summary | Summary of Care ---
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) Malignant neoplasm of ascending colon (HCC) Procedures AR LEUCOVORIN CALCIUM INJECTION AR PALONOSETRON HCL AR FLUOROURACIL INJECTION AR OXALIPLATIN Trung Vargas MD 200 [facility] [place] [address] Anc Hem/Onc [address] [address] Referral ID Status Reason Start Date Expiration Date V isits Requested Visits Authorized [id number] Authorized 01/08/2024 04/04/2099 [id number] Encounter Details Date Type Department Care Team (Latest Contact Info) Description 01/12/2024 11:45 AM EDT Hem/Onc Treatment Hematology/Oncolog y Treatment, [address] [place] [address] Mckenna, Chair 2 Hem Onc [address] [place] [address] Encounter for antineoplastic chemotherapy*; 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); Malignant neoplasm of ascending colon (HCC) Allergies No known active allergiesdocumented as [...] on file documented as of this encounter Last Filed Vital Signs Vital Sign Reading Time Taken Comments Blood Pressure 116/68 01/12/2024 12:17 PM EDT Pulse 69 01/12/2024 12:17 PM EDT Temperature 37.1 C (98.8 F) 01/12/2024 12:17 PM E DT Respiratory Rate 16 01/12/2024 12:17 PM EDT Oxygen Saturation 93% 01/12/2024 12:17 PM EDT Inhaled Oxygen Concentration - - Weight 75.4 kg (166 lb 3.2 oz) 01/12/2024 12:17 PM EDT Height - - Body Mass Index 23.18 01/08/2024 9:07 AM EDT documented in this encounter Nursing Notes * Vicky Wyman RN - 01/12/2024 5:18 PM EDT Goals: Patient will remain free from injury. Possible barriers to meeting goals: ambulating with IV polem Stability of the patient: Moderately stable - low risk of patient condition declining or worsening Summary regarding today's goals: MET: pt remained free of harm today Patient tolerated treatment well without any acute issues or problems. 5FU pump connected. Everything in "new pt box" reviewed with patient and patient has [facility] Home Infusion number on 2 magnetsand folder.He denies any questions about his 5FU pump. Patient left facility in stable condition and denied any further needs. * Vicky Wyman RN - 01/12/2024 5:08 PM EDT Chair 10. Patient presents today for first cycle of chemotherapy. He has been receiving chemo in the past forseveral years through [facility] and previously at [facility]. He is accompanied by today. He had PRN meds at home for nausea and denies any education on these and how to take them. He has a portin on the R side of chest. He was oriented to this treatment room/facility and process of [facility]'s home infusion and pharmacy services. He was oriented to call vergara, layout of tx room, use of chair and IV pole, etc. Patient denies further questions or concerns at this time. In the future, patient expressed difficulties with driving and having to rely on transportation. Hewill be getting labs done on Fridays before tx weeks. He was made aware that if labs are "not good for tx the following Thursday, he would need to repeat them on Thursday for tx Thursday here at ." Patient will have labs drawn at [facility] on Fridays d/t transportation/lack of transport. This is okay per Dr. Vargas to have labs drawn Fridays before tx weeks at [facility]. Overall patient has no acute issues or complaints today other than ongoing "allergies since moving here in about June 2023." He does not wish to take allergy pill to see if it helps because he "takes 17 pills already" and would not like to add more to the mix. Typically with his chemo treatments, he feels nauseas but it resolves fine without taking PRN Zofran at home. Otherwise, the normal cold sensitivity and some neuropathy that remains in present, some fatigue. Chemotherapy/Immunotherapy agents: FOLFOX (leucovorin, 5-FU, & Oxaliplatin) Consent for chemotherapy drug treatment complete, dated, and signed? yes, date - 01/08/2024 Treatment lab parameters met? Yes Has treatment weight changed > than 10%? No Treatment preauthorized? Yes VITALS Filed Vitals: 01/12/24 1217 BP: 116/68 Pulse: 69 Resp: 16 Temp: 37.1 C (98.8 F) TempSrc: Tympanic SpO2: 93% Weight: 75.4 kg (166 lb 3.2 oz) Urine protein: N/A Patient education completed for treatment? Yes Blood transfusion consent signed and complete? NA Return appointment scheduled? Yes Patient had provider visit today? No - If no provider visit must complete Pretreatment Assessment Functional Status: Functional status at today's visit: Fully active, able to carry on all pre-disease performance without restriction The drug name, dose, infusion volume, rate and route of administration, expiration date and time, appearance and physical integrity of the drug and rate set on the pump and sequencing of drug administration (as applicable) were verified by me and second sign-in RN. Patient was assessed for symptoms or adverse side effects during treatment. Patient Education: Patient instructed on use of heat and massage functions where applicable. Patient shown how to operate the heat function of the chair and to alert nursing staff if the chair feels too warm. Patient instructed on the risk of potential sharif while using the heat function. PRE-TREATMENT ASSESSMENT: NEURO: numbness or tingling: baseline, stable, from previous chemo treatments in the past CV/RESP: OTHER: "allergy" symptoms with runny nose, occasional cough GI/: denies symptoms - none today, typically gets some nausea after getting 5FU pump removed. OTHER: denies any additional symptoms PAIN: 0 Safety and Risk for Injury Patient will remain free from injury. Ensure appropriate safety devices are available. Provide and maintain safe environment. documented in this encounter Plan of Treatment Upcoming Encounters Date Type Department Care Team (Late st Contact Info) Description 01/14/2024 1:30 PM EDT Immunization/Injecti on Hematology/Oncology Treatment, [address] [place] [phone] Park, Chair 8 Hem Onc [address] [place] [id number] 01/26/2024 8:45 AM EDT Office Visit Hematology/Oncology [facility] [address] [place] [phone] Trung Vargas MD [address] [place] [address] [place] [id number] 01/26/2024 9:15 AM EDT Hem/Onc Treatment Hematology/Oncology Treatment, [place] [address] [facility], [place] [phone] Mckenna, Chair 1 Hem Onc [address] [place], [place] [address] 02/09/2024 8:00 AM EST Hem/Onc Treatment Hematology/Oncology Treatment, [address], [place] [phone] Mckenna, Chair 1 Hem Onc [address] [place], [place] [address] 02/23/2024 8:00 AM EST Office Visit Hematology/Oncology [address], [place] [phone] Virginia Camarena CRNP [address] [place] [address] 02/23/2024 8:30 AM EST Hem/Onc Treatment Hematology/Oncology Treatment, [address], [place] [phone] Mckenna, Chair 11 Hem Onc [address] [place], [place] [address] Health Maintenance Due Date Last Done Comments [...] colon (HCC) Malignant neoplasm of ascending colon documented in this encounter Administered Medications Active Administered Medications - up to 3 most recent administrations Medication Order MAR Action Action Date Dose Rate Site D5W IV solution Intravenous, at 50 mL/hr, PRN, Starting on Thu01/12/24 at 0830, Until Discontinued Start Infusion 01/12/2024 12:56 PM EDT 50 mL/hr diphenhydrAMINE (Benadryl) inj 50 mg 50 mg, IV Push, ONCE PRN Other, Hypersensitivity Reaction, Starting on Thu01/12/24 at 1245, Until Thu01/13/24 at 1244, For 24 hours EPINEPHrine 1 MG/ML inj 0.3 mg 0.3 mg, Intramuscular, ONCE PRN Other, Hypersensitivity Reaction or Anaphylaxis, Starting on Thu01/12/24 at 1245, Until Thu01/13/24 at 1244, For 24 hours hEParin 100 UNIT/ML Lock Flush inj 500 Units 500 Units (5 mL), IV Lock, PRN Other, IV Flush, Starting on Thu01/12/24 at 1245, Until Thu01/13/24 at 1244, For 24 hours, Do not flush if lock, PICC, or central line not in place; IV infusing or unable to flush. Hydrocortisone Sod Suc (PF) (Solu-Cortef) inj 100 mg 100 mg, IV Push, ONCE PRN Other, Hypersensitivity Reaction, Starting on Thu01/12/24 at 1245, Until Thu01/13/24 at 1244, For 24 hours LORAzepam (Ativan) tab 0.5 mg 0.5 mg, Oral, ONCE PRN Anxiety, Nausea, Starting on Thu01/12/24 at 0830, Until Discontinued oxygen GAS Inhalation, OXYGEN, First dose on Thu01/12/24 at 1600, Until Discontinued, Device/Managed by: Low Flow Device, Goal SPO2 (%): 91-95, Starting Device: Nasal Cannula, Initial Flow Rate (LPM): 2, Lowest Support: Nasal Cannula: Flow 0-6 LPM. Titrate up/down by 1 LPM., Higher Support: Non-Rebreather (NRB) Mask: Minimum of 10 LPM. Titrate to maintain bag inflation., Titration Interval: Q2 minutes and as needed., Notify Provider: For sudden DECREASE in resting SPO2 to less than 85% and when escalating delivery device., Wean patient off Oxygen when the oxygen saturation is greater than or equal to 93% sodium chloride 0.9 % flush central line 10 mL 10 mL, IV Push, PRN Other, IV Flush, Starting on Thu01/12/24 at 1245, Until Thu01/13/24 at 1244, For 24 hours, Do not flush if lock, PICC, or central line not in place; IV infusing or unable to flush. Given 01/12/2024 3:42 PM EDT 10 mL Inactive Administered Medications - up to 3 most recent administrations Medication Order MAR Action Action Date Dose Rate Site dexAMETHasone (Decadron) tab 12 mg 12 mg, Oral, ONCE, On Thu01/12/24 at 1330, For 1 dose Given 01/12/2024 12:54 PM EDT 12 mg Fluorouracil (5-Fu) 4,500 mg for Home Infusion 4,500 mg (rounded from 4,656 mg = 2,400 mg/m2 1.94 m2 Treatment Plan BSA from Recorded weight), Intravenous, Administer over 46 Hours, Home Infusion Pharmacy to specify base solution and volume., ONCE, 1 dose, On Thu01/12/24 at 1315 Start Infusion 01/12/2024 3:45 PM EDT 4,500 mg 3 mL/hr Fluorouracil (5-Fu) inj 800 mg 800 mg (rounded from 776 mg = 400 mg/m2 1.94 m2 Treatment Plan BSA from Recorded weight), IV Push, ONCE, 1 dose, On Thu01/12/24 at 1330 Given 01/12/2024 3:43 PM EDT 800 mg leucovorin calcium 800 mg in D5W 250 mL INFUSION 800 mg (rounded from 776 mg = 400 mg/m2 1.94 m2 Treatment Plan BSA from Recorded weight), IV Piggyback, ONCE, 1 dose, On Thu01/12/24 at 1330, Administer over 120 Minutes, Before 5-FU Start Infusion 01/12/2024 1:21 PM EDT 800 mg 127.5 mL/hr Oxaliplatin (Eloxatin) 82 mg in D5W 500 mL infusion 82 mg (rounded from 82.45 mg = 42.5 mg/m2 1.94 m2 Treatment Plan BSA from Recorded weight), Intravenous, ONCE, 1 dose, On Thu01/12/24 at 1330, Administer over 120 Minutes, Flush with D5W only! Start Infusion 01/12/2024 1:31 PM EDT 82 mg 255 mL/hr Palonosetron (Aloxi) inj SOLN 0.25 mg 0.25 mg, IV Push, ONCE, On Thu01/12/24 at 1330, For 1 dose, Restricted per [facility] antiemetic guidelines Given 01/12/2024 12:54 PM EDT 0.25 mg documented in this encounter Care Teams Pens And Pencils Repairer Relationship Specialty Start Date End Date Johanne Berman PA-C [address] [facility] [address] [place] [phone] PCP - General Physician Tonal Regulator 09/23/23 documented as of this encounter
--- OUTSIDE RECORDS SUMMARY | 2024-01-19 23:22 | External Medical Summary | Summary of Care ---
Author Name Unknown Organization [facility] [address] [facility] [address] Phone [phone] Care Team Providers Care Pharmacy Technician Infusion Name Role Phone Johanne Berman PA-C Primary Care Provi betina Reason for Visit * Reason Onset Date Comments Advice 01/11/2024 Dr. Vargas Encounter Details Date Type Department Care Team (Late st Contact Info) Description 01/11/2024 Telephone Hematology/Oncology [facility] [place] Mia Andres [address] [place] [id number] Trung Vargas MD [address] [place] [id number] Advice (Dr. Vargas) Allergies No known active [...] are currently living in assisted living at [facility] and are without access to avehicle. They are having to pay a food mobile driver to bring him to and from his appointments. I advised regarding lab work but she stated that someone from [facility] has been drawing his labs at [facility]. Dr. Vargas- Would it be [...] pump tomorrow because [facility] and he may not have one for his treatment tomorrow and if that's the case and she doesn't want to relinquish this one of it stops him from being able to get his chemo tomorrow [phone]- pt's Abeba documented in this encounter Plan of Treatment Upcoming Encounters Date Type Department Care Team (Latest Contact Info) Description 01/12/2024 11:45 AM EDT Hem/Onc Treatment Hematology/Oncolog y Treatment, [place] [address] [place] [phone] Park, Chair 2 Hem Onc Scenery [address] [place] [address] Encounter for antineoplastic chemotherapy*; Malignant neoplasm metastatic [...] filedocumented as of this encounter Care Teams Pharmacy Technician Infusion Relationship Specialty Start Date End Date Johanne Berman PA-C [address] [place] [address] PCP - General Physician Vice President Global Digital Marketing 09/23/23 documented as of this encounter
--- OUTSIDE RECORDS SUMMARY | 2024-01-19 23:22 | External Medical Summary | Summary of Care ---
Author Name Unknown Organization [facility] Address [address] [place] [address] Phone [phone] Care Team Providers Care Application Processor Name Role Phone Johanne Berman PA-C Primary Care Provi betina Reason for Visit * Reason Onset Date Comments Advice 01/11/2024 HANH Encounter Details Date Type Department Care Team (Late st Contact Info) Description 01/11/2024 Telephone Hematology/Oncology [place] Mia Andres [address] [place] [phone] Services, Scheduling [address] [place] [address] Advice (HANH) Allergies No known active allergiesdocumented as of [...] Barba RN - 01/11/2024 11:23 AM EDT Spoke with patients , no need for Pump through [facility] anymore. She is aware. * Telephone Encounter - Darlene Wayne OSA - 01/11/2024 10:15 AM EDT Jasmeet, pharmacist from counts include 234 beds at the [facility] home infusion states this patient was on service while being seen at [facility] & they provided infusion medication to home- she is calling because she received a call from pt's whether therapy from [facility] should continue. documented in this encounter Plan of Treatment Upcoming Encounters Date Type Department Care Team (Latest Contact Info) Description 01/12/2024 11:45 AM EDT Hem/Onc Treatment Hematology/Oncolog y Treatment, [place] [address] [place] [address] Park, Chair 2 Hem Onc Scenery [address] [place] [address] Encounter for antineoplastic chemotherapy*; Malignant neoplasm metastatic [...] filedocumented as of this encounter Care Teams Application Processor Relationship Specialty Start Date End Date Johanne Berman PA-C [address] [place] [address] PCP - General Physician Substation Superintendent 09/23/23 documented as of this encounter
--- OUTSIDE RECORDS SUMMARY | 2024-01-19 23:22 | External Medical Summary | Summary of Care ---
Author Name Unknown Organization [facility] Address [address] [facility] [place] [address] Phone [phone] Care Team Providers Care Coat Fitter Name Role Phone Johanne Berman PA-C Primary Care Provi betina Reason for Visit * Reason Onset Date Comments FYI 01/08/2024 Sam Encounter Details Date Type Department Care Team (Late st Contact Info) Description 01/08/2024 Telephone Hematology/Oncology [place] Mia Andres [address] [place] [phone] Services, Scheduling [address] [place] [address] FYI (aSm) Allergies No known active allergiesdocumented as of [...] 3:47 PM EDT Lj- can we contact [facility] and see if they are [...] last 2 [place] and will be dropping them off later today. As for the Ct done on 05/12/23, that was done in [place] and [place] did not have access to those images. If they are still needed, you will have to contact the [place] office to see if they can send them. documented in this encounter Plan of Treatment Upcoming Encounters Date Type Department Care Team (Late st Contact Info) Description 01/26/2024 8:45 AM EDT Office Visit Hematology/Oncology [facility] [place] [address] [facility] [address] [place], [place] [phone] Trung Vargas MD 200 [facility] [place] [address] 01/26/2024 9:15 AM EDT Hem/Onc Treatment Hematology/Oncology Treatment, [address] [place], [place] [phone] Mckenna, Chair 1 Hem Onc [address] [place] [address] 02/09/2024 8:00 AM EST Hem/Onc Treatment Hematology/Oncology Treatment, [address], [place] [phone] Mckenna, Chair 1 Hem Onc [address] [place], [place] [address] 02/23/2024 8:00 AM EST Office Visit Hematology/Oncology [facility] [address] [place], [place] [phone] Virginia Camarena CRNP [address] [place] [address] 02/23/2024 8:30 AM EST Hem/Onc Treatment Hematology/Oncology Treatment, [address], [place] [phone] Mckenna, Chair 11 Hem Onc Scenery 200 [facility] [place], [place] [address] Health Maintenance Due Date Last Done Comments [...] filedocumented as of this encounter Care Teams Coat Fitter Relationship Specialty Start Date End Date Johanne Berman PA-C [address] [place] [address] PCP - General Physician Research Geneticist 09/23/23 documented as of this encounter
--- OUTSIDE RECORDS SUMMARY | 2024-01-19 23:22 | External Medical Summary | Summary of Care ---
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)*; Malignant neoplasm of ascending colon (HCC) Allergies [...] 1:45 PM EDT Immunization/Injecti on Hematology/Oncology Treatment, [address], [place] [phone] Mckenna, Chair 8 Hem Onc Scenery 200 [facility] [place] [address] 01/26/2024 8:45 AM EDT Office Visit Hematology/Oncology [facility] [place] 200 [facility] [place] [phone] Trung Vargas MD 200 [facility] [place] [address] 01/26/2024 9:15 AM EDT Hem/Onc Treatment [address]ology[address] [address] Mckenna, Chair 1 Hem Onc Scenery 200 [facility] [place] [address] 02/09/2024 8:00 AM EST Hem/Onc Treatment Hematology/Oncology Treatment, [address], [place] [address] Mckenna, Chair 1 Hem Onc Scenery 200 [facility] [place], [place] [address] 02/23/2024 8:00 AM EST Office Visit Hematology/Oncology [facility] [place] 200 [facility] [place], [place] [address] Virginia Camarena CRNP [address] [place], [place] [address] [address] 02/23/2024 8:30 AM EST Hem/Onc Treatment Hematology/Oncology Treatment, [place] 200 [facility] [phone] Mckenna, Chair 11 Hem Onc Scen[address] 200 [facility] [place] [address] Health Maintenance Due Date Last Done Comments [...] this encounter Visit Diagnoses Diagnosis 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
--- OUTSIDE RECORDS SUMMARY | 2024-01-19 23:22 | External Medical Summary | Summary of Care ---
Author Name Unknown Organization [facility] Address [address] [facility] [place] [address] Phone [phone] Care Team Providers Care Kitchen Assistant Name Role Phone Johanne Berman PA-C Primary Care Provi betina Reason for Visit * Reason Onset Date Comments FYI 01/08/2024 Sam Encounter Details Date Type Department Care Team (Late st Contact Info) Description 01/08/2024 Telephone Hematology/Oncology [place] [address] [place] [id number] Services, Scheduling [address] [place] [address] FYI (Sam) Allergies No known active allergiesdocumented [...] 3:47 PM EDT Lj- can we contact [facility] and see if they are able [...] last 2 scans the patient had donein [place] and will be dropping them off later today. As for the Ct done on 05/12/23, that was done in [place] and [place] did not have access to those images. If they are still needed, you will have to contact the [place] office to see if they can send them. documented in this encounter Plan of Treatment Upcoming Encounters Date Type Department Care Team (Latest Contact Info) Description 01/12/2024 11:45 AM EDT Hem/Onc Treatment Hematology/Oncolog y Treatment, [place] [address] [facility] [address] Mckenna, Chair [address] [facility] 200 [facility] [address] Encounter for antineoplastic chemotherapy*; Malignant neoplasm metastatic [...] filedocumented as of this encounter Care Teams Kitchen Assistant Relationship Specialty Start Date End Date Johanne Berman PA-C [address] [facility] 1 [place] [address] PCP - General Physician Turkish Line Attendant 09/23/23 documented as of this encounter
--- OUTSIDE RECORDS SUMMARY | 2024-01-19 23:22 | External Medical Summary | Summary of Care ---
Author Name Unknown Organization [facility] Address [address] [facility] [address] Phone [phone] Care Team Providers Care Care Services Manager Name Role Phone Johanne Berman PA-C Primary Care Provi betina Reason for Visit * Reason Onset Date Comments transfer of records 01/14/2024 Pathology Encounter Details Date Type Department Care Team (Late st Contact Info) Description 01/14/2024 Telephone Hematology/Oncology [facility] [place] Mia Andres [address] [place] [id number] Trung Vargas MD 200 [facility] [place] [id number] transfer of records (Pathology) Allergies No known [...] AM EDT Scheduling- Please send request to [facility] for pathology results/reports from patients hemicolectomy surgery that was done in 2013. Thank you. Per [address]. Vargas- would like NGS testing done on pathology from 2013 if available. documented in this encounter Plan of Treatment Upcoming Encounters Date Type Department Care Team (Late st Contact Info) Description 01/14/2024 1:45 PM EDT Immunization/Injecti on Hematology/Oncology [address], [address] [phone] Mckenna, Chair [address] [place] [id number] 01/26/2024 8:45 AM EDT Office Visit Hematology/Oncology [facility] [address] [place] [phone] Trung Vargas MD [address] [place] [address] [place] [address] 01/26/2024 9:15 AM EDT Hem/Onc Treatment Hematology/Oncology Treatment, [address] [place] [address] Mckenna, Chair 1 Hem On[address] [place] [id number] 02/09/2024 8:00 AM EST Hem/Onc Treatment Hematology/Oncology Treatment, [address] [place] [address] Mckenna, Chair 1 Hem Onc Scenery 200 [facility] [place], [place] [address] 02/23/2024 8:00 AM EST Office Visit Hematology/Oncology Scenery [facility] [address] [place] [phone] Virginia Camarena CRNP [address] [place] [address] 02/23/2024 8:30 AM EST Hem/Onc Treatment Hematology/Oncology Treatment, [place] 200 [facility] [place] [phone] Mckenna, Chair 11 Hem Onc [address] 200 [facility] [place] [address] Health Maintenance Due Date Last Done Comments [...] filedocumented as of this encounter Care Teams Care Services Manager Relationship Specialty Start Date End Date Johanne Berman PA-C [facility] [address] [facility] 1 [place] [address] PCP - General Physician Roadway Technician 09/23/23 documented as of this encounter
--- OUTSIDE RECORDS SUMMARY | 2024-01-19 23:22 | External Medical Summary | Summary of Care ---
Author Name Unknown Organization [facility] Address [address] [facility] [address] Phone [phone] Care Team Providers Care Alterations Tailor Name Role Phone Johanne Berman PA-C Primary Care Provi betina Reason for Visit * Reason Onset Date Comments transfer of records 01/14/2024 Pathology Encounter Details Date Type Department Care Team (Late st Contact Info) Description 01/14/2024 Telephone Hematology/Oncology [facility] [place] Mia Andres [address] [place] [id number] Trung Vargas MD 200 [facility] [place] [id number] transfer of records (Pathology) Allergies No known [...] 1:44 PM EDT Not fx back from [facility] stating that they do not have anything in 2014 with this info on it * Telephone Encounter - Jeana Sandhu OSA - 01/14/2024 12:58 PM EDT Fax sent * Telephone Encounter - Tuan Barba RN - 01/14/2024 11:59 AM EDT Scheduling- Please send request to [facility] for pathology results/reports from patients hemicolectomy surgery that was done in 2013. Thank you. Per Dr. Vargas- would like NGS testing done on pathology from 2014 if available. documented in this encounter Plan of Treatment Upcoming Encounters Date Type Department Care Team (Late st Contact Info) Description 01/26/2024 8:45 AM EDT Office Visit Hematology/Oncology [facility] Mckenna [address] [place] [id number] Trung Vargas MD [address] [place] [address] [place] [id number] 01/26/2024 9:15 AM EDT Hem/Onc Treatment Hematology/Oncology Treatment, [address] [place] [phone] Mckenna, Chair 1 Hem Onc [place] [address] [place] [address] 02/09/2024 8:00 AM EST Hem/Onc Treatment Hematology/Oncology Treatment [address] [place] [phone] Mckenna, Chair 1 Hem Onc [facility] 200 [facility] [place] [address] 02/23/2024 8:00 AM EST Office Visit Hematology/Oncology [facility] [place] 200 [facility] [place] [phone] Virginia Camarena CRNP 400 [facility] [place] [address] 02/23/2024 8:30 AM EST [facility] 200 [facility] [phone] Mckenna, Chair 11 Hem Onc [facility] 200 [facility] [place] [address] Health Maintenance Due Date Last Done Comments [...] filedocumented as of this encounter Care Teams Alterations Tailor Relationship Specialty Start Date End Date Johanne Berman PA-C [address] [place] [address] [place] [address] PCP - General Physician Wrap Turner 09/23/23 documented as of this encounter
--- OUTSIDE RECORDS SUMMARY | 2024-01-19 23:23 | External Medical Summary | Summary of Care ---
Author Name Unknown Organization [facility] Address [address] [facility] [address] Phone [phone] Care Team Providers Care Veterinary Surgery Technician Name Role Phone Johanne Berman PA-C Primary Care Provi betina Reason for Visit * Reason Comments Follow Up Encounter Details Date Type Department Care Team (Late st Contact Info) Description 01/08/2024 9:15 AM EDT Office Visit Hematology/Oncology State [place] [address] [facility] [place] [id number] Trung Vargas MD [address] [facility] [place] [id number] Malignant neoplasm of ascending colon (HCC)*; 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) Allergies No known active allergiesdocumented as of this encounter (statuses as of 01/08/2024) Medications Medication Sig Dispensed Refills Start Date [...] as of this encounter (statuses as of 01/08/2024) Active Problems Problem Noted Date Diagnosed Date Malignant neoplasm of ascending colon 01/08/2024 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 07/2023 Encounter for antineoplastic chemotherapy 2023 documented as of this encounter (statuses as of 01/08/2024) Social History Tobacco Use Types Packs/Day Years [...] Sign Reading Time Taken Comments Blood Pressure 135/68 01/08/2024 9:07 AM EDT Pulse 50 01/08/2024 9:07 AM EDT Temperature 36.4 C (97.5 F) 01/08/2024 9:07 AM ED T Respiratory Rate - - Oxygen Saturation 97% 01/08/2024 9:07 AM EDT Inhaled Oxygen Concentration - - Weight 75.3 kg (166 lb) 01/08/2024 9:07 AM EDT Height - - Body Mass Index - - documented in this encounter Progress Notes * Trung Vargas MD - 01/08/2024 9:15 AM EDT Hematology/Oncology Outpatient Consult Note Ran Rosas Fate [address] [facility] [place] [address] SHANTE Jessica VAZ JR. MR # [id number] :1940 83-year-old male, Date of consultation:12/31/2023 DIAGNOSIS: - right-sided colon cancer post right hemicolectomy stage III disease, 04/22 lymph node positive formetastatic disease. ( 2014). SANDRA, KERON WT Late 2018 --> recurrent disease noted in the lungs, no recurrent decision the abdomen pelvis Earlier he was followed by medical oncologist from [facility] Dr. Wojciech Camarena lately with Dr. Kolb from [facility]. I reviewed their progress notes. Now he would like to transfer the care with us. CURRENT TREATMENT: Presently he is receiving 5-Fluorouracil and leucovorin and oxaliplatin every 2 weekly at [facility]. Now he would like to transfer the care with us Will proceed with 5-Fluorouracil, leucovorin and oxaliplatin every 2 weekly. -he will receive oxaliplatin at a lower dose at 50% dose reduction because of concerns about side effects and neuropathy toxicity. PREVIOUS TREATMENT: CAPOX x6 between April 2014 -August 2014 -FOLFIRI and Bevacizumab Started in April 2018. Bevacizumab was discontinued because of proteinuria in April 2019. -discontinue irinotecan in October 2018. 5-Fluorouracil continued every other week. Bevacizumab was tried briefly but once again because of neutropenia it was discontinued somewhere in early 2023. LLL SBRT 45 Gy in 3 fx completed 09/05/2021 Right lower lobe SBRT somewhere in November 2022. DIAGNOSTIC WORKUP: 2013--> , right colectomy for stage III colon cancer, it was T3 N1, 04/22 lymph node positive. SANDRA. Adjuvant chemotherapy with 6 cycles of CAPOX at [facility] ( April 2014- August 2014). He had a severe right hand cellulitis secondary to extravasation of oxaliplatin with the last cycle. 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 - CEA level was around 2 (02/23/2017) 03/05/2018: scan of the chest, abdomen pelvis--> Small bilateral lung nodules measuring from 2 mm to 6 mm, several nodules are new. No intra-abdominal lymphadenopathy or metastasis. Hepatic steatosis. Biopsy from the right upper lobe lung nodule --> metastatic adenocarcinoma consistent with coloncancer. (03/23/2018) 04/27/2018 --> started on FOLFIRI and Bevacizumab. CT scan of the chest, abdomen pelvis on 09/10/2018: -stable or marginally increased biopsy-proven right upper lobe metastatic nodule from 5 mm --> 6mm. No suspicious findings noted in the abdomen or pelvis. 11/01/18: Discontinued Irinotecan after 13 cycles due to worsening fatigue. - 5-Fluorouracil , leucovorin and Bevacizumab was continued Bevacizumab was discontinued because of significant proteinuria (April 2019. - CEA level increased to around 8.5 (11/2020 ) CT chest, abdomen pelvis on 10/2020 showed major noted of the lung nodules cavitated stable. -12/17/2020 CEA 9.8 -01/14/2021 CEA 9.8 -01/28/2021 CT C/A/P with stable disease. CEA 11.1 -02/27/2021 CEA 12.0 - 5-Fluorouracil continued. - 04/03/2021 CEA 15.3, CT CAP stable disease. -04/29/2021 CEA 17.8 -06/24/2021 21.0 -07/02/2021 CT CAP - stable disease, LLL 1.4 cm from 1.1 cm. -08/12/2021 CEA 15.2 -09/03/2021 to 09/05/2021 SBRT 45 Gy LLL -5-Fluorouracil continued. - 10/21/2021 CT CAP Interval progression of metastatic disease as evidenced by marginal increase in size of multiple bilateral pulmonary nodules, some of which demonstrate central cavitation. - 11/18/2021 CEA 15.0 - 11/26/2021 PET-CT FDG avid multiple bilateral lung nodule compatible with patient known metastaticdisease. stable compared to 10/21/2021 CT CEA 14.5 -5-Fluorouracil continued. -02/03/2022 PET- CT Previously noted index 1.5 cm cavitary nodule in right upper lobe is unhinged in size measuring 1.4x1.1 cm (series 2, image 102) maximum SUV 1.65, previously maximum SUV was 1.602. Perviously noted 2.6 cm elongated soft tissue nodularity abutting the pleura in the medial basilarright lower lobe now measure 3.6x1.2 cm (series 2, image 121) maximum SUV 3.26, previously maximum S UV was 3.39. 3. Previously noted 1.1 x 0.8 cm left upper lobe lung nodule now measure 1 x 0.9 cm (series 2, image 97) maximum SUV 1.16, previously maximum SUV was 1.99. On my review LLL possible ground glass opacities -05/05/[address] C/A/P demonstrated essentially stable, possibly mildly progressed pulmonarymetastasis. No evidence of recurrence in the abdomen or pelvis. CEA 26.7. -06/02/2022 CEA 29.9 -06/30/2022 CEA 40.0 -07/14/2022 PET/CT - No significant interval change in bilateral mild to moderately FDG avid lung nodules compatible with stable metastatic disease. No disease elsewhere - 07/28/2022 CEA 35.7 - - 09/08/2022 CEA 56.7 - 10/20/2022 CT C/A/P - Stable pulmonary metastases (compared to 07/14/2022 PET/CT). No lymph node enlargement.Abdomen/pelvis: No evidence of recurrent tumor or abdominal or pelvic metastases. CEA 71.9 - 11/24-11/28 XRT to RLL lung nodule with Dr. Valdemar Richardson - 11/28/22 CEA 85.1 - 12/15/2022 CEA 98.3 - CEA level increased to around 108. -02/10/23 PET/CT- Progression of bilateral pulmonary metastatic disease. Right upper lobe lesion, previously cavitary is more solid and increased spiculated appearance with overall increase in size now measuring 2.5 x 1.2 cm in greatest dimensions, among others. Otherwise stable/TABATHA on my review -02/23/2023 added bevacizumab to 5-FU Bevacizumab held after 3 treatments due to proteinuria, last given 03/22/2023 CEA 161.2 to 148.6 -May 12/2024 CT of chest abdomen and pelvis demonstrated continued interval cavitation of widespread lung metastasis no new lung masses identified no other areas of metastatic disease noted - 06/01/23 CEA 139.3 Insert line Transfer the care to [facility] with . Continued 5-Fluorouracil without Bevacizumab every 2 weekly between June of 2023 - December 2023 CEA Latest Ref Rng <=5.2 ng/mL 09/21/2023 148.0 (H) 10/02/2023 146.4 (H) 10/16/2023 159.0 (H) 10/30/2023 173.4 (H) 11/13/2023 189.1 (H) 11/27/2023 205.1 (H) 12/11/2023 220.1 (H) 12/25/2023 243.1 (H) CT chest, abdomen pelvis on 11/02/2023: - No significant mediastinal lymphadenopathy - Improvement of the right lower lobe constipation - Extensive metastatic disease involving both lungs which have remained stable from the prior imaging studies done in August 2023 - No suspicious finding noted in the abdomen or pelvis. OTHER IMPORTANT HISTORY: - Gout -diabetes mellitus -hypertension -hyperlipidemia. INTERVAL HISTORY: He has come the clinic for the follow-up, accompanied by his and [id number] in the office. Overall he is feeling well, some tiredness, no blood in the stool, no new cardiac or pulmonary symptom, some shortness of breath on exertion, no abdominal symptoms, no leg edema, has some mild tingling and numbness of extremities which is stable. Stable weight around 166 lb. No past medical history on file. No past surgical history on file. Current Outpatient Medications Medication Sig Dispense Refill Allopurinol 300 MG Oral Tablet (Zyloprim) Take 1 Tablet by mouth in the morning. Docusate Sodium 100 MG Oral Capsule (Colace) Take 1 Capsule by mouth in the morning and 1 Capsule before bedtime. Canagliflozin 100 MG Oral Tablet (Invokana) Take 1 Tablet by mouth in the morning. Irbesartan 300 MG Oral Tablet (Avapro) Take 1 Tablet by mouth at bedtime. Kerendia 10 MG Oral Tablet (Finerenone) Take by mouth. Meclizine HCl 25 MG Oral Tablet (Antivert) Take 1 Tablet by mouth 3 times a day as needed. metFORMIN HCl 500 MG Oral Tablet (Glucophage) Take 1 Tablet by mouth 2 times a day with morning andevening meals. Methylcobalamin 2500 MCG Sublingual Tablet Sublingual Place under the tongue. NIFEdipine ER 60 MG Oral Tablet Extended Release 24 Hour (Adalat CC) Take 1 Tablet by mouth in the morning. Potassium Chloride ER 20 MEQ Oral Tablet Extended Release Take 1 Tablet by mouth in the morning. Pravastatin Sodium 40 MG Oral Tablet (Pravachol) Take 1 Tablet by mouth every evening. PreserVision AREDS 2 Oral Tablet Chewable Take by mouth. linaGLIPtin 5 MG Oral Tablet (Tradjenta) Take 1 Tablet by mouth in the morning. Vitamin B-6 50 MG Oral Tablet Take 1 Tablet by mouth in the morning. Vitamin D3 25 MCG (1000 UT) Oral Capsule Take by mouth. No current facility-administered medications for this visit. No family history on file. Social History Socioeconomic History Marital status: Spouse name: Not on file Number of children: Not on file Years of education: Not on file Highest education level: Not on file Occupational History Not on file Tobacco Use Smoking status: Not on file Smokeless tobacco: Not on file Substance and Sexual Activity Alcohol use: Not on file Drug use: Not on file Sexual activity: Not on file Other Topics Concern Not on file Social History Narrative Not on file Social Determinants of Health Financial Resource Strain: Not on file Food Insecurity: Not on file Transportation Needs: Not on file Social Connections: Unknown (09/22/2023) Social Connections How often do you feel lonely or isolated from those around you? (Adult - for ages 18 years and over): Not on file Housing Stability: Not on file On Exam: BP 135/68 (BP Site: Left Arm, BP Position: Sitting, BP Cuff Size: Regular) | Pulse 50 | Temp 36.4 C (97.5 F) (Tympanic) | Wt 75.3 kg (166 lb) | SpO2 97% Constitutional: Patient is alert, cooperative and oriented x 3. Well built man, Patient is in no acute distress. HEENT:No icterus, no pallor, Throat and pharynx normal. Sinuses are non-tender. Neck: Supple and without lymphadenopathy or masses. No JVD. No Palpable supraclavicular lymph nodes. Lungs: Clear to auscultation. Bilateral symmetric air entry. No wheezing or rhonchi. Cardiovascular: Normal heart sounds, no murmurs.Regular rate and rhythm. Abdomen: soft, nontender, no hepatomegaly, no splenomegaly. Bowel sounds are normal. Neurological: No gross focal neurological deficit; walks with a normal gait. Extremities: No finger clubbing, No cyanosis. No leg edema. Skin:: No skin rash. SPINE: No spinal or paraspinal tenderness. LABS: Blood workup done on 12/25/2023: -WBC 5600, Hemoglobin and hematocrit -12.5/36.8, MCV 113, Platelet count [id number] -BUN/Creat: 17/1.2 -AST 26, ALT 18, alkaline phosphatase 156, bilirubin level 0.8 -CEA level --> 243. Blood workup done on 01/08/2024: -WBC 6000, Hemoglobin and hematocrit -12.6/37, MCV 115, Platelet count of [id number] -BUN/Creat:22/1.2 - normal LFT other than alkaline phosphatase 160. -CEA level pending. IMAGING: CT scan of the chest, abdomen pelvis done on 01/06/2024. Unfortunately was not compared to previous imaging studies which were done at [facility] in [place]. -multiple bilateral lung nodules with cavitations, the largest 1 in the right lower lobe measuring 6.6 x 3.2 cm, largest on the left lower lobe measuring 3.4 x 4.1 cm -mildly enlarged mediastinal lymph nodes (1.3 cm right lower paratracheal lymph node, 1.4 cm subcarinal lymph node). No suspicious finding noted in the abdomen or pelvis. -small bilateral adrenal gland nodules measuring 1.1 cm in the right side and the 9 mm on the left side. ASSESSMENT AND PLAN: 83-year-old male, a case of right-sided colon cancer diagnosed in 2013, stage III disease, 04/22 lymph node positive for metastatic disease, microsatellite stable, KERON wild type. S/P CAPOX x6. Recurrent disease noted in the lungs in late 2018. Received FOLFIRI and bevacizumab, had a bevacizumab related proteinuria and Ferritin was discontinued, irinotecan was discontinued after 11 treatments because of fatigue. S/P SBRT to the right lower lobe and left lower lobe lung lesions. Continued 5-Fluorouracil and leucovorin but few months back gradual rise in the CEA level noted andso oxaliplatin was added on 12/14/2023 at a lower dose. He was getting treatment every 2 weekly at [facility] but he would like to transfer the care withus I reviewed with him and his family members regarding the recent follow-up CT scan of the chest, abdomen pelvis, multiple cavitary lung lesions but no suspicious noted in the abdomen or pelvis. Gradual rise in the CEA level noted I am planning for CBCD, comprehensive metabolic panel, CEA level today. He is due for the next cycle of chemotherapy early next week, will continue 5- Fluorouracil, leucovorin and oxaliplatin but oxaliplatin of the lower dose at 50% dose reduction They will bring old imaging study on disc for the comparison. Would like to review NGS results, if not done, will have to order. I am planning to see him in about [address] Trung Vargas Hem/Onc (This note was completed using the dictation program Fluency Direct. As such, there may be misspellings word substitutions, or other variations that should not change the essence of the clinical content of this encounter note. If there is need for further clarification, please direct questions to the provider listed above.) documented in this encounter Nursing Notes * Latonya Escalona, MED ASSIST - 01/08/2024 9:09 AM EDT Patient identifed by name and birthdate Do you have any concerns about pain management for today's visit? Yes. Patient instructed to discuss pain concerns with provider during the visit today Living Will or Advance Directive for Health Care as noted on the problem list. [facility] is a way you can talk to your provider on line through e-mail. Would you like to sign up? I can activate it for you? ALREADY ACTIVE Filed Vitals: 01/08/24 0907 BP: 135/68 Pulse: 50 Temp: 36.4 C (97.5 F) TempSrc: Tympanic SpO2: 97% Weight: 75.3 kg (166 lb) Patient was instructed to not get up on the exam table/exam chair until directed and assisted by their provider; patient is to remain seated in the chair/ wheelchair/ exam table/ exam chair for fall prevention and safety reasons. Patient is aware to have assistance to step down off exam table/exam chair with personnel. Patient voiced full comprehension of instructions. 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) 01/08/2024 10:00 AM EDT Health Maintenance Due Date Last Done Comments [...] Procedure Name Priority Date/Time Associated Diagnosis Comments DIFFERENTIAL, AUTOMATED STAT 01/08/2024 10:00 AM EDT Malignant neoplasm of ascending colon (HCC) 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) COMPREHENSIVE METABOLIC PANEL STAT 01/08/2024 10:00 AM EDT Malignant neoplasm of ascending colon (HCC) 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) CBC STAT 01/08/2024 10:00 AM EDT Malignant neoplasm of ascending colon (HCC) 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) CBC STAT 01/08/2024 10:00 AM EDT Malignant neoplasm of ascending colon (HCC) 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3 0.0 - 2.0 % 01/08/2024 10:09 AM EDT [facility] 56 Absolute Neutrophils 4.52 1.80 - 7.70 K/uL 01/08/2024 10:09 AM EDT [facility] 56 Absolute Lymphocytes 0.76(L) 1.00 - 4.80 K/ul 01/08/2024 10:09 AM EDT [facility] 56 Absolute Monocytes 0.58 0.00 - 1.10 K/uL 01/08/2024 10:09 AM EDT [facility] 56 Absolute Eosinophils 0.14 0.00 - 0.70 K/uL 01/08/2024 10:09 AM EDT [facility] 56 Absolute Basophils 0.02 0.00 - 0.20 K/uL 01/08/2024 10:09 AM EDT [facility] 56 Blood Venous blood specimen / Unknown Venipuncture / Unknown 01/08/2024 10:00 AM EDT 01/08/2024 10:00 AM EDT Trung Vargas MD LAB BLOOD ORDERABLES [facility] [address] [place] [address] * (ABNORMAL) CBC (01/08/2024 10:00 AM EDT) WBC 6.02 4.00 - 10.80 K/uL 01/08/2024 10:09 AM EDT [facility] 56 RBC 3.24 4.50 - 5.25 M/uL 01/08/2024 10:09 AM EDT [facility] 56 HGB 12.6(L) 14.0 - 16.8 g/dL 01/08/2024 10:09 AM EDT [facility] 56 HCT 37.3(L) 40.0 - 48.4 % 01/08/2024 10:09 AM EDT [facility] 56 MCV 115.1 82.0 - 99.5 fL 01/08/2024 10:09 AM EDT [address] MCH 38.9 27.0 - 34.0 pg 01/08/2024 10:09 AM EDT [address] MCHC 33.8 32.0 - 36.0 g/dL 01/08/2024 10:09 AM EDT [address] RDW 15.6 11.5 - 15.5 % 01/08/2024 10:09 AM EDT [address] PLT 146 140 - 400 K/uL 01/08/2024 10:09 AM EDT [address] MPV 9.9 6.6 - 11.1 fL 01/08/2024 10:09 AM EDT [address] Blood Venous blood specimen / Unknown Venipuncture / Unknown 01/08/2024 10:00 AM EDT 01/08/2024 10:00 AM EDT Trung Vargas MD LAB BLOOD ORDERABLES [place] [address] [place] [address] * (ABNORMAL) COMPREHENSIVE METABOLIC PANEL (01/08/2024 10:00 AM EDT) BUN 22(H) 6 - 20 mg/dL 01/08/2024 10:28 AM T [address] CREATININE 1.2 0.6 - 1.2 mg/dL 01/08/2024 10:28 AM EDT [address] EGFR 59(L) >=60 mL/min 01/08/2024 10:28 AM T [address] Comment:eGFR is calculated b ased on the CKD-EPI 2020 equation. SODIUM 142 135 - 146 mmol/L 01/08/2024 10:28 AM EDT [address] POTASSIUM 4.3 3.5 - 5.1 mmol/L 01/08/2024 10:28 AM EDT [address] CHLORIDE 104 98 - 107 mmol/L 01/08/2024 10:28 AM EDT [address] CO2 26 22 - 32 mmol/L 01/08/2024 10:28 AM EDT [facility] 56 ANION GAP 12 7 - 15 mmol/L 01/08/2024 10:28 AM EDT [address] GLUCOSE 229(H) 70 - 120 mg/dL 01/08/2024 10:28 AM EDT [address] Albumin 4.0 3.8 - 5.0 g/dL 01/08/2024 10:28 AM EDT [address] AST 36 10 - 50 U/L 01/08/2024 10:28 AM EDT [address] Alkaline Phosphatase 160(H) 35 - 130 U/L 01/08/2024 10:28 AM EDT [address] Bilirubin, Total 0.7 <=1.2 mg/dL 01/08/2024 10:28 AM EDT [address] CALCIUM 9.0 8.4 - 10.2 mg/dL 01/08/2024 10:28 AM EDT [address] Protein 6.8 6.0 - 8.3 g/dL 01/08/2024 10:28 AM EDT [address] ALT 28 10 - 50 U/L 01/08/2024 10:28 AM EDT [facility] 56 Blood Venous blood specimen / Unknown Venipuncture / Unknown 01/08/2024 10:00 AM EDT 01/08/2024 10:00 AM EDT Trung Vargas MD LAB BLOOD ORDERABLES [facility] [address]- [address] [place] [address] documented in this encounter Visit Diagnoses Diagnosis Malignant neoplasm of ascending colon (HCC)- Primary Malignant neoplasm of ascending colon 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
--- OUTSIDE RECORDS SUMMARY | 2024-01-19 23:23 | External Medical Summary | Summary of Care ---
Author Name Unknown Organization [facility] Address [address] [facility] [address] Phone [phone] Care Team Providers Care Continuous Improvement Lead Name Role Phone Johanne Berman PA-C Primary Care Provi betina Encounter Details Date Type Department Care Team (Late st Contact Info) Description 01/08/2024 Orders Only Hematology/Oncology [facility] State Mia Andres [address] [place] [id number] Trung Vargas MD [address] [place] [id number] Allergies No known active allergiesdocumented as of [...] as of this encounter Plan of Treatment Health Maintenance Due Date Last Done Comments [...] filedocumented as of this encounter Care Teams Continuous Improvement Lead Relationship Specialty Start Date End Date Johanne Berman PA-C [address] [place] [address] PCP - General Physician Building Code Administrator 09/23/23 documented as of this encounter
--- OUTSIDE RECORDS SUMMARY | 2024-01-19 23:23 | External Medical Summary | Summary of Care ---
Author Name Unknown Organization [facility] [address] [facility] [address] Phone [phone] Care Team Providers Care Clinical Informatics Educator Name Role Phone Johanne Berman PA-C Primary Care Provi betina Reason for Visit * Reason Onset Date Comments Precert Future 01/08/2024 FOLFOX Encounter Details Date Type Department Care Team (Late st Contact Info) Description 01/08/2024 Telephone Hematology/Oncology [facility] State Mia Andres [address] [place] [id number] Trung Vargas MD [address] [place] [id number] Precert Future (FOLFOX) Allergies No known active allergiesdocumented as of [...] Encounter - Tuan Barba RN - 01/08/2024 11:42 AM EDT Referral entered. GHIS- please confirm if/when patient is ok for treatment on 01/11 regarding pump. * Telephone Encounter - Viral Ramos OSA - 01/08/2024 11:07 AM EDT Pt scheduled and is aware * Telephone Encounter - Tuan Barba RN - 01/08/2024 10:37 AM EDT Scheduling- Please call patient to schedule for the following on 01/11 : - 3 hour treatment "FOLFOX C1,D1" (Sam). Per Dr. Vargas: - Patient previously on FOLFOX with [facility], transition to our office and will continue on this plan. - Ok to use labs from 01/07 for treatment on 01/[address] Vargas. Orders received, beacon plan built and routed. Awaiting stat auth. -Chemo Consent: 01/08/24 -Chemo Education: None- patient continuing on treatment he has been on currently. -Port Placement: Already placed. -Standing Lab orders placed: CBCD,CMP,Mag -Medications Pended: None -Hep B Labs: 01/08/24 -GHIS referral placed Sent urgently (FOLFOX/FOLFIRINOX/FOLFIRI only) documented in this encounter Plan of Treatment Upcoming Encounters Date Type Department Care Team (Late st Contact Info) Description 01/12/2024 11:45 AM EDT Hem/Onc Treatment Hematology/Oncology Treatment, [place] [address] [place] [address] Mckenna, Chair 2 Hem Onc [facility] [address] [facility] [place] [id number] Scheduled Orders Name Type Priority Associated Diagnoses Orde r Schedule CBC WITH WBC DIFFERENTIAL Lab STAT Malignant neoplasm of ascending colon (HCC) Every 2 Weeks for 26 Occurrences starting 01/08/2024 until 01/07/2025 COMPREHENSIVE METABOLIC PANEL Lab STAT Malignant neoplasm of ascending colon (HCC) Every 2 Weeks for 26 Occurrences starting 01/08/2024 until 01/07/2025 MAGNESIUM Lab STAT Malignant neoplasm of ascending colon (HCC) Every 2 Weeks for 26 Occurrences starting 01/08/2024 until 01/07/2025 Health Maintenance Due Date Last Done Comments [...] (HCC)- Primary Malignant neoplasm of ascending colon documented in this encounter Care Teams Clinical Informatics Educator Relationship Specialty Start Date End Date Johanne Berman PA-C [address] [place] [address] PCP - General Physician Laboratory Chemist 09/23/23 documented as of this encounter
--- OUTSIDE RECORDS SUMMARY | 2024-01-19 23:23 | External Medical Summary ---
Author Name Unknown Address Unknown Organization K[facility] [place] [address] Laboratory Report Ordering Provider Test Date Status HANH COLES 01/08/2024 10:00:36 Final Observation Date Value Abnormality Reference (Units ) Status WBC, Total 01/08/2024 10:00:36 6.02 4.00-10.8 0 (K/uL) Final RBC 01/08/2024 10:00:36 3.24 4.50-5.25 (M/uL) Final Hemoglobin 01/08/2024 10:00:36 12.6 Below low normal 14 .0-16.8 (g/dL) Final HCT 01/08/2024 10:00:36 37.3 Below low normal 40. 0-48.4 (%) Final MCV 01/08/2024 10:00:36 115.1 82.0-99.5 (fL) Final MCH 01/08/2024 10:00:36 38.9 27.0-34.0 (pg) Final MCHC 01/08/2024 10:00:36 33.8 32.0-36.0 (g/dL) Final RDW 01/08/2024 10:00:36 15.6 11.5-15.5 (%) Final Platelets 01/08/2024 10:00:36 146 140-400 (K /uL) Final MPV 01/08/2024 10:00:36 9.9 6.6-11.1 ( fL) Final Performing Location [facility] [place] [id number]
--- OUTSIDE RECORDS SUMMARY | 2024-01-19 23:23 | External Medical Summary | Summary of Care ---
Author Name Unknown Organization [facility] Address [address] [facility] [address] Phone [phone] Care Team Providers Care Hospital Nurse Liaison Name Role Phone Johanne Berman PA-C Primary Care Provi betina Reason for Visit * Reason Comments Follow Up Encounter Details Date Type Department Care Team (Late st Contact Info) Description 01/08/2024 9:15 AM EDT Office Visit Hematology/Oncology [place] [address] [facility] [place] [phone] Trung Vargas MD [address] [facility] [place] [id number] Malignant neoplasm of ascending colon (HCC)*; Malignant [...] (166 lb) 01/08/2024 9:07 AM EDT Height 180.3 cm (5' 11") 01/08/2024 9:07 AM EDT Body Mass Index 23.15 01/08/2024 9:07 AM EDT documented in this encounter Progress Notes * Trung Vargas MD - 01/08/2024 9:15 AM EDT Hematology/Oncology Outpatient Consult Note [place] Andres [address] [facility] [place] [address] SHANTE Jessica VAZ JR. 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 ( 2014). SANDRA, KERON WT Late 2018 --> recurrent disease noted in the lungs, no recurrent decision the abdomen pelvis Earlier he was followed by medical oncologist from [facility] Dr. Wojciech Camarena lately with Dr. Kolb from [facility]. I reviewed their progress notes. Now he would like to transfer the care with us. CURRENT TREATMENT: Presently he is receiving 5-Fluorouracil and leucovorin and oxaliplatin every 2 weekly at [facility]. Now he would like to transfer [...] chemotherapy with 6 cycles of CAPOX at [facility] ( April 2014- August 2014). He had [...] 139.3 Insert line Transfer the care to [facility] with . Continued 5-Fluorouracil without Bevacizumab [...] for the follow-up, accompanied by his and [id number] in the office. Overall he is feeling [...] and hematocrit -12.5/36.8, MCV 113, Platelet count [id number] -BUN/Creat: 17/1.2 -AST 26, ALT 18, alkaline phosphatase 156, bilirubin level 0.8 -CEA level --> 243. Blood workup done on 01/08/2024: -WBC 6000, Hemoglobin and hematocrit -12.6/37, MCV 115, Platelet count of [id number] -BUN/Creat:22/1.2 - normal LFT other than alkaline phosphatase 160. -CEA level pending. IMAGING: CT scan of the chest, abdomen pelvis done on 01/06/2024. Unfortunately was not compared to previous imaging studies which were done at [facility] in [place]. -multiple bilateral lung nodules with cavitations, the [...] was getting treatment every 2 weekly at [facility] but he would like to transfer [...] Care as noted on the problem list. [facility] is a way you can talk to your provider on line through e-mail. Would you like to sign up? I can activate it for you? ALREADY ACTIVE Filed Vitals: 01/08/24 09 BP: 135/68 Pulse: 50 Temp: 36.4 C [...] 11:45 AM EDT Hem/Onc Treatment Hematology/Oncology Treatment, [address] [address] [place], Chair 2 Hem Onc [address] [place] [address] Pending Results Name Type Priority Associated Diagnoses [...] 75.0 % 01/08/2024 10:09 AM EDT LABORATORY [facility] 56-02 Lymphocytes % 12.6(L) 18.0 - 42.0 % 01/08/2024 10:09 AM EDT LABORATORY [facility] 56-02 Monocytes % 9.6 1.0 - 11.0 % 01/08/2024 10:09 AM EDT [facility] 56- Eosinophils % 2.3 0.0 - 6.0 % 01/08/2024 10:09 AM EDT [facility] 56- Basophils % 0.3 0.0 - 2.0 % 01/08/2024 10:09 AM EDT [facility] 56 Absolute Neutrophils 4.52 1.80 - 7.70 K/uL 01/08/2024 10:09 AM EDT [facility] 56 Absolute Lymphocytes 0.76(L) 1.00 - 4.80 K/ul 01/08/2024 10:09 AM EDT [facility] 56 Absolute Monocytes 0.58 0.00 - 1.10 K/uL 01/08/2024 10:09 AM EDT [facility] 56 Absolute Eosinophils 0.14 0.00 - 0.70 K/uL 01/08/2024 10:09 AM EDT [facility] 56 Absolute Basophils 0.02 0.00 - 0.20 K/uL 01/08/2024 10:09 AM EDT [facility] 56 Blood Venous blood specimen / Unknown Venipuncture / Unknown 01/08/2024 10:00 AM EDT 01/08/2024 10:00 AM EDT Trung Vargas MD LAB BLOOD ORDERABLES [facility] [address] [place] [address] * (ABNORMAL) CBC (01/08/2024 10:00 AM EDT) WBC 6.02 4.00 - 10.80 K/uL 01/08/2024 10:09 AM EDT [facility] 56- RBC 3.24 4.50 - 5.25 M/uL 01/08/2024 10:09 AM EDT [facility] 56 HGB 12.6(L) 14.0 - 16.8 g/dL 01/08/2024 10:09 AM EDT [facility] 56- HCT 37.3(L) 40.0 - 48.4 % 01/08/2024 10:09 AM EDT [address] MCV 115.1 82.0 - 99.5 fL 01/08/2024 10:09 AM EDT [address] MCH 38.9 27.0 - 34.0 pg 01/08/2024 10:09 AM EDT [address] MCHC 33.8 32.0 - 36.0 g/dL 01/08/2024 10:09 AM EDT [address] RDW 15.6 11.5 - 15.5 % 01/08/2024 10:09 AM EDT [address] PLT 146 140 - 400 K/uL 01/08/2024 10:09 AM EDT [address] MPV 9.9 6.6 - 11.1 fL 01/08/2024 10:09 AM T [address] Blood Venous blood specimen / Unknown Venipuncture / Unknown 01/08/2024 10:00 AM EDT 01/08/2024 10:00 AM EDT Trung Vargas MD LAB BLOOD ORDERABLES [place] [address] [address] [place] [address] * (ABNORMAL) COMPREHENSIVE METABOLIC PANEL (01/08/2024 10:00 AM EDT) BUN 22(H) 6 - 20 mg/dL 01/08/2024 10:28 AM EDT [address] CREATININE 1.2 0.6 - 1.2 mg/dL 01/08/2024 10:28 AM EDT [address] EGFR 59(L) >=60 mL/min 01/08/2024 10:28 AM T [place] [address] Comment:eGFR is calculated b ased on the CKD-EPI 2020 equation. SODIUM 142 135 - 146 mmol/L 01/08/2024 10:28 AM EDT [address] POTASSIUM 4.3 3.5 - 5.1 mmol/L 01/08/2024 10:28 AM EDT [facility] 56 CHLORIDE 104 98 - 107 mmol/L 01/08/2024 10:28 AM EDT [facility] 56 CO2 26 22 - 32 mmol/L 01/08/2024 10:28 AM EDT [address] ANION GAP 12 7 - 15 mmol/L 01/08/2024 10:28 AM EDT [address] GLUCOSE 229(H) 70 - 120 mg/dL 01/08/2024 10:28 AM EDT [address] Albumin 4.0 3.8 - 5.0 g/dL 01/08/2024 10:28 AM EDT [address] AST 36 10 - 50 U/L 01/08/2024 10:28 AM EDT [address] Alkaline Phosphatase 160(H) 35 - 130 U/L 01/08/2024 10:28 AM EDT [address] Bilirubin, Total 0.7 <=1.2 mg/dL 01/08/2024 10:28 AM EDT [address] CALCIUM 9.0 8.4 - 10.2 mg/dL 01/08/2024 10:28 AM EDT [address] Protein 6.8 6.0 - 8.3 g/dL 01/08/2024 10:28 AM EDT [address] ALT 28 10 - 50 U/L 01/08/2024 10:28 AM T [facility] 56 Blood Venous blood specimen / Unknown Venipuncture / Unknown 01/08/2024 10:00 AM EDT 01/08/2024 10:00 AM EDT Trung Vargas MD LAB BLOOD ORDERABLES [facility] [address] [place] [address] documented in this encounter Visit Diagnoses Diagnosis Malignant neoplasm of ascending colon (HCC)- Primary Malignant neoplasm of ascending colon 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
--- OUTSIDE RECORDS SUMMARY | 2024-01-19 23:23 | External Medical Summary | Summary of Care ---
Author Name Unknown Organization [facility] Address [address] [facility] [place] [address] Phone [phone] Care Team Providers Care Novelty Maker Name Role Phone Johanne Berman PA-C Primary Care Provi betina Reason for Visit * Reason Onset Date Comments FYI 01/08/2024 Sam Encounter Details Date Type Department Care Team (Late st Contact Info) Description 01/08/2024 Telephone Hematology/Oncology [place] Mia Andres [address] [place] [phone] Services, Scheduling [address] [place] [address] FYI (Sam) Allergies No known active allergiesdocumented [...] 3:47 PM EDT Lj- can we contact [facility] and see if they are [...] last 2 scans the patient had donein [place] and will be dropping them off later today. As for the Ct done on 05/12/23, that was done in [place] and [place] did not have access to those images. If they are still needed, you will have to contact the [place] office to see if they can send them. documented in this encounter Plan of Treatment Upcoming Encounters Date Type Department Care Team (Late st Contact Info) Description 01/12/2024 11:45 AM EDT Hem/Onc Treatment Hematology/Oncology Treatment, [place] [address] [facility] [address] Mckenna, Chair 2 Hem Onc [address] [address] Health Maintenance Due Date Last Done Comments [...] filedocumented as of this encounter Care Teams Novelty Maker Relationship Specialty Start Date End Date Johanne Berman PA-C [address] [place] [address] PCP - General Physician Healthcare Customer Service 09/23/23 documented as of this encounter
--- OUTSIDE RECORDS SUMMARY | 2024-01-19 23:23 | External Medical Summary | Summary of Care ---
Author Name Unknown Organization [facility] Address [address] [place] [address] Phone [phone] Care Team Providers Care Pharmaceutical Worker Name Role Phone Johanne Berman PA-C Primary Care Provi betina Reason for Visit * Reason Onset Date Comments Other 01/01/2024 Encounter Details Date Type Department Care Team (Late st Contact Info) Description 01/01/2024 Telephone Hematology/Oncology Treatment, [place] [address] [place] [address] Trung Vargas MD [address] [place] [address] Other Allergies No known active allergiesdocumented as of this encounter (statuses as of 01/04/2024) Medications Medication Sig Dispensed Refills Start Date [...] as of this encounter (statuses as of 01/04/2024) Active Problems No known active problems documented as of this encounter (statuses as of 01/04/2024) Social History Tobacco Use Types Packs/Day Years [...] encounter Miscellaneous Notes * Telephone Encounter - Katelyn Pedro LPN - 01/04/2024 11:53 AM EDT Let voicemail for Adry at [facility], requesting records for the NGS if available, call back number and fax provided. * Telephone Encounter - Katelyn Pedro LPN - 01/01/2024 3:47 PM EDT Printed Surgical Path report from 03/08/2024 under Care Everywhere. Patient now sees Dr. Gisela Nguyen in [facility]. Office is closed at 3:00 pm. Phone number [phone] * Telephone Encounter - Tuan Barba RN - 01/01/2024 3:13 PM EDT Lj- spoke with Dr. Vargas- can we please request the following records from [facility] in [place] in 2013: Pathology report from surgery done in 2013 Any Next Generation Sequencing (NGS) that was completed on that pathology. documented in this encounter Plan of Treatment Upcoming Encounters Date Type Department Care Team (Late st Contact Info) Description 01/06/2024 8:15 AM EDT Imaging Radiology [address], [place] [address] [facility] [place] [address] 01/08/2024 9:15 AM EDT Office Visit Hematology/Oncology [facility] [address] [facility] [place] [id number] Trung Vargas MD [address] [facility] [place] [address] Health Maintenance Due Date Last Done Comments [...] filedocumented as of this encounter Care Teams Pharmaceutical Worker Relationship Specialty Start Date End Date Johanne Berman PA-C [address] [place] [address] PCP - General Physician Bakery Team Member 09/23/23 documented as of this encounter
--- OUTSIDE RECORDS SUMMARY | 2024-01-19 23:23 | External Medical Summary ---
Author Name Unknown Address Unknown Organization K09:[facility] [place] [address] Laboratory Report Ordering Provider Test Date Status HANH COLES 01/08/2024 10:00:36 Final Observation Date Value Abnormality Reference (Units ) Status SYNC LEUKOCYTES IN BLOOD BY AUTOMATED COUNT 01/08/2024 10:00:36 6.02 4.00-10.80 (K/uL) Final Segs 01/08/2024 10:00:36 75.2 Above high normal 40.0-75.0 (%) Final Lymphs % 01/08/2024 10:00:36 12.6 Below low normal 18.0-42.0 (%) Final Monos 01/08/2024 10:00:36 9.6 1.0-11.0 (%) Final Eosinophils 01/08/2024 10:00:36 2.3 0.0-6.0 (%) Final Basos 01/08/2024 10:00:36 0.3 0.0-2.0 (%) Final Absolute Segs 01/08/2024 10:00:36 4.52 1.80-7.70 (K/uL) Final Lymphs, absolute 01/08/2024 10:00:36 0.76 Below low normal 1.00-4.80 (K/ul) Final Monos, Abs 01/08/2024 10:00:36 0.58 0.00-1.10 (K/uL) Final Eos, Abs 01/08/2024 10:00:36 0.14 0.00-0.70 (K/uL) Final Basos, Abs 01/08/2024 10:00:36 0.02 0.00-0.20 (K/uL) Final Performing Location [facility] [place] [address]
--- OUTSIDE RECORDS SUMMARY | 2024-01-19 23:23 | External Medical Summary | Summary of Care ---
Author Name Unknown Organization [facility] Address [address] [facility] [place] [address] Phone [phone] Care Team Providers Care Preforms Laminator Name Role Phone Johanne Berman PA-C Primary Care Provi betina Encounter Details Date Type Department Care Team (Late st Contact Info) Description 01/08/2024 Orders Only Hematology/Oncology [facility] State Mia Andres [address] [place] [phone] Trung Vargas MD [address] [place] [id number] Allergies No known active allergiesdocumented as of [...] 11:45 AM EDT Hem/Onc Treatment Hematology/Oncology Treatment, [place] [address] [place] [address] Mckenna, Chair 2 Hem Onc [place] [address] [place] [address] Health Maintenance Due Date Last Done Comments [...] filedocumented as of this encounter Care Teams Preforms Laminator Relationship Specialty Start Date End Date Johanne Berman PA-C [address] [place] [address] PCP - General Physician Chief Petroleum Engineer 09/23/23 documented as of this encounter
--- OUTSIDE RECORDS SUMMARY | 2024-01-19 23:23 | External Medical Summary | Summary of Care ---
Author Name Unknown Organization [facility] Address [address] [facility] [place] [address] Phone [phone] Care Team Providers Care Factory Clerk Name Role Phone Johanne Berman PA-C Primary Care Provi betina Reason for Visit * Reason Onset Date Comments FYI 01/08/2024 Sam Encounter Details Date Type Department Care Team (Late st Contact Info) Description 01/08/2024 Telephone Hematology/Oncology [place]ia Andres [address] [place] [id number] Services, Scheduling [address] [place] [address] FYI (Sam) Allergies No known active allergiesdocumented [...] 3:47 PM EDT Lj- can we contact [facility] and see if they are [...] last 2 scans the patient had donein [place] and will be dropping them off later today. As for the Ct done on 05/12/23, that was done in [place] and [place] did not have access to those images. If they are still needed, you will have to contact the [place] office to see if they can send them. documented in this encounter Plan of Treatment Upcoming Encounters Date Type Department Care Team (Late st Contact Info) Description 01/12/2024 11:45 AM EDT Hem/Onc Treatment Hematology/Oncology Treatment, [place] [address] [facility] [address] Mckenna, Chair 2 Hem Onc [address] [address] Health Maintenance Due Date Last Done Comments [...] filedocumented as of this encounter Care Teams Factory Clerk Relationship Specialty Start Date End Date Johanne Berman PA-C [address] [place] [address] PCP - General Physician Municipal Engineer 09/23/23 documented as of this encounter
--- OUTSIDE RECORDS SUMMARY | 2024-01-19 23:23 | External Medical Summary | Summary of Care ---
Author Name Unknown Organization [facility] Address [address] [facility] [place] [address] Phone [phone] Care Team Providers Care Mortgage Accounting Clerk Name Role Phone Johanne Berman PA-C Primary Care Provi betina Reason for Visit * Reason Comments Outpatient Testing Encounter Details Date Type Department Care Team (Late st Contact Info) Description 01/08/2024 10:00 AM EDT Laboratory Laboratory [place] Andres [address] [place] [address] M[place] Lab Scenery [address] [place] [address] Malignant neoplasm of ascending colon (HCC); Encounter for screening for other viral diseases Allergies No known active allergiesdocumented as of [...] encounter (statuses as of 01/08/2024) Active Problems No known active problems documented [...] as of this encounter Plan of Treatment Pending Results Name Type Priority Associated Diagnoses Date /Time HEPATITIS B CORE ANTIBODIES IGG AND IGM Lab Routine Malignant neoplasm of ascending colon (HCC) Encounter for screening for other viral diseases 01/08/2024 10:01 AM EDT HEPATITIS B SURFACE ANTIBODY Lab Routine Malignant neoplasm of ascending colon (HCC) 01/08/2024 10:01 AM EDT HEPATITIS B SURFACE ANTIGEN Lab Routine Malignant neoplasm of ascending colon (HCC) Encounter for screening for other viral diseases 01/08/2024 10:01 AM EDT Health Maintenance Due Date Last [...] Diagnoses Diagnosis Malignant neoplasm of ascending colon (HCC) Malignant neoplasm of ascending colon Encounter for screening for other viral diseases documented in this encounter Care Teams Mortgage Accounting Clerk Relationship Specialty Start Date End Date Johanne Berman PA-C [address] [facility] 1 [place] [address] PCP - General Physician Frame Runner 09/23/23 documented as of this encounter
--- OUTSIDE RECORDS SUMMARY | 2024-01-19 23:23 | External Medical Summary | Summary of Care ---
Author Name Unknown Organization [facility] Address [address] [facility] [address] Phone [phone] Care Team Providers Care Regional Transfer Liaison Name Role Phone Johanne Berman PA-C Primary Care Provi betina Reason for Visit * Reason Onset Date Comments Advice 01/11/2024 Dr. Vargas Encounter Details Date Type Department Care Team (Late st Contact Info) Description 01/11/2024 Telephone Hematology/Oncology [facility] [place] Mia Andres [address] [place] [phone] Trung Vargas MD [address] [place] [id number] Advice (Dr. Vargas) Allergies No known active [...] are currently living in assisted living at [facility] and are without access to avehicle. They are having to pay a flatbed company driver to bring him to and from his appointments. I advised regarding lab work but she stated that someone from [facility] has been drawing his labs at [facility]. Dr. Vargas- Would it be [...] pump tomorrow because [facility] and he may not have one for his treatment tomorrow and if that's the case and she doesn't want to relinquish this one of it stops him from being able to get his chemo tomorrow [phone]- pt's Abeba documented in this encounter Plan of Treatment Upcoming Encounters Date Type Department Care Team (Latest Contact Info) Description 01/12/2024 11:45 AM EDT Hem/Onc Treatment Hematology/Oncolog y Treatment, [place] [address] [place] [address] Mckenna, Chair 2 Hem Onc Scen[place] [address] [place] [address] Encounter for antineoplastic chemotherapy*; Malignant neoplasm metastatic [...] filedocumented as of this encounter Care Teams Regional Transfer Liaison Relationship Specialty Start Date End Date Johanne Berman PA-C [address] [facility] 1 [place] [address] PCP - General Physician Member Service Specialist 09/23/23 documented as of this encounter
--- OUTSIDE RECORDS SUMMARY | 2024-01-19 23:23 | External Medical Summary | Summary of Care ---
Author Name Unknown Organization [facility] Address [address] [address] Phone [phone] Care Team Providers Care Front Desk Coordinator Name Role Phone Johanne Berman PA-C Primary Care Provi betina Reason for Visit * Reason Onset Date Comments Advice 01/11/2024 Dr. Vargas Encounter Details Date Type Department Care Team (Late st Contact Info) Description 01/11/2024 Telephone Hematology/Oncology [facility] State Mia Andres [address] [place] [id number] Trung Vargas MD [address] [place] [id number] Advice (Dr. Vargas) Allergies No known active [...] currently living in assisted living at [facility] and are without access to avehicle. They are having to pay a driver/sales workers to bring him to and from his appointments. I advised regarding lab work but she stated that someone from [facility] has been drawing his labs at [facility]. Dr. Vargas- Would it be ok for [...] pump tomorrow because Lisa [facility] and he may not have one for his treatment tomorrow and if that's the case and she doesn't want to relinquish this one of it stops him from being able to get his chemo tomorrow [phone]'s Abeba documented in this encounter Plan of Treatment Upcoming Encounters Date Type Department Care Team (Latest Contact Info) Description 01/12/2024 11:45 AM EDT Hem/Onc Treatment Hematology/Oncolog y Treatment, [place] [address] [place] [address] Mckenna, Chair 2 Hem Onc Scenery [address] [place] [address] Encounter for antineoplastic chemotherapy*; Malignant neoplasm metastatic [...] filedocumented as of this encounter Care Teams Front Desk Coordinator Relationship Specialty Start Date End Date Johanne Berman PA-C [address] [facility] 1 [place] [address] PCP - General Physician Education Manager 09/23/23 documented as of this encounter
--- OUTSIDE RECORDS SUMMARY | 2024-01-19 23:23 | External Medical Summary | Summary of Care ---
Author Name Unknown Organization [facility] Address [address] [facility] [address] Phone [phone] Care Team Providers Care Supervisor Home Economics Name Role Phone Johanne Berman PA-C Primary Care Provi betina Reason for Visit * Reason Onset Date Comments Precert Future 01/08/2024 FOLFOX Encounter Details Date Type Department Care Team (Late st Contact Info) Description 01/08/2024 Telephone Hematology/Oncology [facility] State Mia Andres [address] [place] [id number] Trung Vargas MD [address] [place] [id number] Precert Future (FOLFOX) Allergies No known active [...] Encounter - Tuan Barba RN - 01/11/2024 8:37 AM EDT Spoke on Thursday with Yael Can with [facility], stated patient is ok to proceed at this time. 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); Malignant neoplasm of ascending colon (HCC) Scheduled Orders Name Type Priority Associated Diagnoses [...] (HCC)- Primary Malignant neoplasm of ascending colon Encounter for antineoplastic chemotherapy- Primary 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
--- OUTSIDE RECORDS SUMMARY | 2024-01-19 23:23 | External Medical Summary ---
Author Name Unknown Address Unknown Organization K01:[facility] [address] [place] [address] Laboratory Report Ordering Provider Test Date Status HANH COLES 01/08/2024 10:01:22 Final Observation Date Value Abnormality Reference (Units ) Status CEA 01/08/2024 10:01:22 251.4 Above high normal <= 5.2 (ng/mL) Final Performing Location [facility] - [address] [place] [address]
--- OUTSIDE RECORDS SUMMARY | 2024-01-19 23:23 | External Medical Summary | Summary of Care ---
Author Name Unknown Organization [facility] Address [address] [place] [address] Phone [phone] Care Team Providers Care Network Architect Name Role Phone Johanne Berman PA-C Primary Care Provi betina Reason for Visit * Reason Onset Date Comments Other 01/01/2024 Encounter Details Date Type Department Care Team (Late st Contact Info) Description 01/01/2024 Telephone Hematology/Oncology Treatment, [place] [address] [place] [address] Trung Vargas MD [address] [place] [address] Other Allergies No known active allergiesdocumented as of this encounter (statuses as of 01/01/2024) Medications Medication Sig Dispensed Refills Start Date [...] as of this encounter (statuses as of 01/01/2024) Active Problems No known active problems documented as of this encounter (statuses as of 01/01/2024) Social History Tobacco Use Types Packs/Day Years [...] now sees Dr. Gisela Nguyen in [facility]. Office is closed at 3:00 pm. Phone number [phone] * Telephone Encounter - Tuan Barba RN - 01/01/2024 3:13 PM EDT Lj- spoke with Dr. Vargas- can we please request the following records from [facility] in [place] in 2013: Pathology report from surgery done in 2013 Any Next Generation Sequencing (NGS) that was completed on that pathology. documented in this encounter Plan of Treatment Upcoming Encounters Date Type Department Care Team (Late st Contact Info) Description 01/06/2024 8:00 AM EDT Imaging Radiology [address] [facility] [place] [address] 01/08/2024 9:15 AM EDT Office Visit Hematology/Oncology [facility] 200 [facility] [place] [phone] Trung Vargas MD 200 [facility] [place] [address] Health Maintenance Due Date Last Done Comments [...] filedocumented as of this encounter Care Teams Network Architect Relationship Specialty Start Date End Date Johanne Berman PA-C [address] [place] [address] [place] [address] PCP - General Physician Ruby On Rails Web Developer 09/23/23 documented as of this encounter
--- OUTSIDE RECORDS SUMMARY | 2024-01-19 23:23 | External Medical Summary | Summary of Care ---
Author Name Unknown Organization [facility] Address [address] [facility] [address] Phone [phone] Care Team Providers Care Senior Java Programmer Name Role Phone Johanne Berman PA-C Primary Care Provi betina Reason for Visit * Reason Onset Date Comments Precert Future 01/08/2024 FOLFOX Encounter Details Date Type Department Care Team (Late st Contact Info) Description 01/08/2024 Telephone Hematology/Oncology [facility] State Mia Andres [address] [place] [phone] Trung Vargas MD [address] [place] [id number] Precert Future (FOLFOX) Allergies No known active [...] encounter Miscellaneous Notes * Telephone Encounter - Viral Ramos OSA - 01/08/2024 11:07 AM EDT Pt scheduled and is aware * Telephone Encounter - Tuan Barba RN - 01/08/2024 10:37 AM EDT Scheduling- Please call patient to schedule for the following on 01/11 : - 3 hour treatment "FOLFOX C1,D1" (Sam). Per Dr. Vargas: - Patient previously on FOLFOX with [facility], transition to our office and will continue [...] 11:45 AM EDT Hem/Onc Treatment Hematology/Oncology Treatment, [address] [address] Mckenna, Chair 2 Hem Onc [address] [place] [address] Scheduled Orders Name Type Priority Associated Diagnoses [...] colon documented in this encounter Care Teams Senior Java Programmer Relationship Specialty Start Date End Date Johanne Berman PA-C [address] [facility] 1 [place] [address] PCP - General Physician Food Processing Chemist 09/23/23 documented as of this encounter
--- OUTSIDE RECORDS SUMMARY | 2024-01-19 23:23 | External Medical Summary | Summary of Care ---
Author Name Unknown Organization [facility] Address [address] [facility] [address] Phone [phone] Care Team Providers Care Permastone Mechanic Name Role Phone Johanne Berman PA-C Primary Care Provi betina Reason for Visit * Reason Onset Date Comments Precert Future 01/08/2024 FOLFOX Encounter Details Date Type Department Care Team (Late st Contact Info) Description 01/08/2024 Telephone Hematology/Oncology [facility] State Mia Andres [address] [place] [id number] Trung Vargas MD [address] [place] [id number] Precert Future (FOLFOX) Allergies No known active [...] Vargas: - Patient previously on FOLFOX with [facility], transition to our office and will [...] documented in this encounter Plan of Treatment Scheduled Orders Name Type Priority Associated Diagnoses [...] colon documented in this encounter Care Teams Permastone Mechanic Relationship Specialty Start Date End Date Johanne Berman PA-C [address] [facility] 1 [place] [address] PCP - General Physician Emergency Department Clinician 09/23/23 documented as of this encounter
--- OUTSIDE RECORDS SUMMARY | 2024-01-19 23:23 | External Medical Summary ---
Author Name Unknown Address Unknown Organization K01:[facility] [place] [address] [facility] [address] [place] [address] Laboratory Report Ordering Provider Test Date Status HANH COLES 01/08/2024 10:01:22 Final Observation Date Value Abnormality Reference (Units) Status Hepatitis B virus surface Ab [Units/volume] in Serum or Plasma by Immunoassay 01/08/2024 10:01:22 <3.5 (mIU/mL) Final Hepatitis B virus surface Ab [Presence] in Serum by Immunoassay 01/08/2024 10:01:22 Negative Final HEPATITIS B SURFACE ANTIBODY, INTERPRETATION 01/08/2024 10:01:22 NOT immune to Hepatitis B Virus Final POSITIVE: >=11.5 mIU/mL
INDETERMINATE: 8.5-<11.5 mIU/mL
NEGATIVE: <8.5 mIU/mL Performing Location [facility] [place] [address] [place] [address]
--- OUTSIDE RECORDS SUMMARY | 2024-01-19 23:23 | External Medical Summary | Summary of Care ---
Author Name Unknown Organization [facility] Address [address] [facility] [address] Phone [phone] Care Team Providers Care Center Medical Specialist Name Role Phone Johanne Berman PA-C Primary Care Provi betina Reason for Visit * Reason Comments Follow Up Encounter Details Date Type Department Care Team (Late st Contact Info) Description 01/08/2024 9:15 AM EDT Office Visit Hematology/Oncology [place] 200 [facility] [place] [phone] Trung Vargas MD 200 [facility] [place] [id number] Malignant neoplasm of ascending colon (HCC)*; Malignant [...] EDT Hematology/Oncology Outpatient Consult Note Ran Rosas Patterson 200 [facility] [place] [address] SHANTE Jessica VAZ JR. 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 ( 2014). SANDRA, KERON WT Late 2018 --> recurrent disease noted in the lungs, no recurrent decision the abdomen pelvis Earlier he was followed by medical oncologist from [facility] Dr. Wojciech Camarena lately with Dr. Kolb from [facility]. I reviewed their progress notes. Now he would like to transfer the care with us. CURRENT TREATMENT: Presently he is receiving 5-Fluorouracil and leucovorin and oxaliplatin every 2 weekly at [facility]. Now he would like to transfer [...] chemotherapy with 6 cycles of CAPOX at [facility] ( April 2014- August 2014). He had [...] 139.3 Insert line Transfer the care to [facility] with . Continued 5-Fluorouracil without Bevacizumab [...] for the follow-up, accompanied by his and [id number] in the office. Overall he is feeling [...] and hematocrit -12.5/36.8, MCV 113, Platelet count 856117 -BUN/Creat: 17/1.2 -AST 26, ALT 18, alkaline phosphatase 156, bilirubin level 0.8 -CEA level --> 243. Blood workup done on 01/08/2024: -WBC 6000, Hemoglobin and hematocrit -12.6/37, MCV 115, Platelet count of 181300 -BUN/Creat:22/1.2 - normal LFT other than alkaline phosphatase 160. -CEA level pending. IMAGING: CT scan of the chest, abdomen pelvis done on 01/06/2024. Unfortunately was not compared to previous imaging studies which were done at [facility] in [place]. -multiple bilateral lung nodules with cavitations, the [...] was getting treatment every 2 weekly at [facility] but he would like to transfer [...] 11:45 AM EDT Hem/Onc Treatment Hematology/Oncology Treatment, [address] [address] Shante, Chair 2 Hem On[address] [address] Pending Results Name Type Priority Associated Diagnoses [...] 01/08/2024 10:09 AM EDT LABORATORY [facility] 56-02 Lymphocytes % 12.6(L) 18.0 - 42.0 % 01/08/2024 10:09 AM EDT LABORATORY [facility] 56-02 Monocytes % 9.6 1.0 - 11.0 % 01/08/2024 10:09 AM EDT [facility] 56-02 Eosinophils % 2.3 0.0 - 6.0 % 01/08/2024 10:09 AM EDT [facility] 56 Basophils % 0.3 0.0 - 2.0 % 01/08/2024 10:09 AM EDT [facility] 56 Absolute Neutrophils 4.52 1.80 - 7.70 K/uL 01/08/2024 10:09 AM EDT [facility] 56 Absolute Lymphocytes 0.76(L) 1.00 - 4.80 K/ul 01/08/2024 10:09 AM EDT [facility] 56 Absolute Monocytes 0.58 0.00 - 1.10 K/uL 01/08/2024 10:09 AM EDT [facility] 56 Absolute Eosinophils 0.14 0.00 - 0.70 K/uL 01/08/2024 10:09 AM EDT [facility] 56 Absolute Basophils 0.02 0.00 - 0.20 K/uL 01/08/2024 10:09 AM EDT [facility] 56 Blood Venous blood specimen / Unknown Venipuncture / Unknown 01/08/2024 10:00 AM EDT 01/08/2024 10:00 AM EDT Trung Vargas MD LAB BLOOD ORDERABLES [facility] [address] [place] [address] * (ABNORMAL) CBC (01/08/2024 10:00 AM EDT) WBC 6.02 4.00 - 10.80 K/uL 01/08/2024 10:09 AM EDT [facility] 56 RBC 3.24 4.50 - 5.25 M/uL 01/08/2024 10:09 AM EDT [facility] 56 HGB 12.6(L) 14.0 - 16.8 g/dL 01/08/2024 10:09 AM EDT [facility] 56 HCT 37.3(L) 40.0 - 48.4 % 01/08/2024 10:09 AM EDT [facility] 56 MCV 115.1 82.0 - 99.5 fL 01/08/2024 10:09 AM EDT [address] MCH 38.9 27.0 - 34.0 pg 01/08/2024 10:09 AM EDT [address] MCHC 33.8 32.0 - 36.0 g/dL 01/08/2024 10:09 AM EDT [address] RDW 15.6 11.5 - 15.5 % 01/08/2024 10:09 AM EDT [address] PLT 146 140 - 400 K/uL 01/08/2024 10:09 AM EDT [address] MPV 9.9 6.6 - 11.1 fL 01/08/2024 10:09 AM EDT [address] Blood Venous blood specimen / Unknown Venipuncture / Unknown 01/08/2024 10:00 AM EDT 01/08/2024 10:00 AM EDT Trung Vargas MD LAB BLOOD ORDERABLES [place] [address] [place] [address] * (ABNORMAL) COMPREHENSIVE METABOLIC PANEL (01/08/2024 10:00 AM EDT) BUN 22(H) 6 - 20 mg/dL 01/08/2024 10:28 AM T [address] CREATININE 1.2 0.6 - 1.2 mg/dL 01/08/2024 10:28 AM EDT [address] EGFR 59(L) >=60 mL/min 01/08/2024 10:28 AM T [address] Comment:eGFR is calculated b ased on the CKD-EPI 2020 equation. SODIUM 142 135 - 146 mmol/L 01/08/2024 10:28 AM EDT [address] POTASSIUM 4.3 3.5 - 5.1 mmol/L 01/08/2024 10:28 AM EDT [address] CHLORIDE 104 98 - 107 mmol/L 01/08/2024 10:28 AM EDT [address] CO2 26 22 - 32 mmol/L 01/08/2024 10:28 AM EDT [facility] 56 ANION GAP 12 7 - 15 mmol/L 01/08/2024 10:28 AM EDT [address] GLUCOSE 229(H) 70 - 120 mg/dL 01/08/2024 10:28 AM EDT [address] Albumin 4.0 3.8 - 5.0 g/dL 01/08/2024 10:28 AM EDT [address] AST 36 10 - 50 U/L 01/08/2024 10:28 AM EDT [address] Alkaline Phosphatase 160(H) 35 - 130 U/L 01/08/2024 10:28 AM EDT [address] Bilirubin, Total 0.7 <=1.2 mg/dL 01/08/2024 10:28 AM EDT [address] CALCIUM 9.0 8.4 - 10.2 mg/dL 01/08/2024 10:28 AM EDT [address] Protein 6.8 6.0 - 8.3 g/dL 01/08/2024 10:28 AM EDT [address] ALT 28 10 - 50 U/L 01/08/2024 10:28 AM EDT [facility] 56 Blood Venous blood specimen / Unknown Venipuncture / Unknown 01/08/2024 10:00 AM EDT 01/08/2024 10:00 AM EDT Trung Vargas MD LAB BLOOD ORDERABLES [facility] 56- [address] [place] [address] documented in this encounter Visit Diagnoses Diagnosis Malignant neoplasm of ascending colon (HCC)- Primary Malignant neoplasm of ascending colon 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
--- OUTSIDE RECORDS SUMMARY | 2024-01-19 23:23 | External Medical Summary | Summary of Care ---
Author Name Unknown Organization [facility] Address [address] [place] [address] Phone [phone] Care Team Providers Care Crystal Flat Grinder Name Role Phone Johanne Berman PA-C Primary Care Provi betina Reason for Visit * Reason Comments Outpatient Testing Encounter Details Date Type Department Care Team (Late st Contact Info) Description 01/08/2024 10:00 AM EDT Laboratory Laboratory Scenery [place] [address] [place] [phone] [facility] Lab Scenery [address] [place] [address] Malignant neoplasm of ascending colon (HCC); Encounter [...] diseases documented in this encounter Care Teams Crystal Flat Grinder Relationship Specialty Start Date End Date Johanne Berman PA-C [address] [facility] 1 [place] [address] PCP - General Physician Packaging Assembler 09/23/23 documented as of this encounter
--- OUTSIDE RECORDS SUMMARY | 2024-01-19 23:23 | External Medical Summary | Summary of Care ---
Author Name Unknown Organization [facility] Address [address] [facility] [address] Phone [phone] Care Team Providers Care Manager Consumer Name Role Phone Johanne Berman PA-C Primary Care Provi betina Reason for Visit * Reason Onset Date Comments Referral 01/08/2024 5FU Pump Encounter Details Date Type Department Care Team (Late st Contact Info) Description 01/08/2024 Telephone Hematology/Oncology [facility] State Mia Andres [address] [place] [id number] Trung Vargas MD 200 [facility] [place] [id number] Referral (5FU Pump) Allergies No known active allergiesdocumented as of [...] Encounter - Tuan Barba RN - 01/08/2024 10:43 AM EDT Name: Mckenna Sequeira Jr. Cancer Diagnosis: C18.2 - Malignant Neoplasm of Ascending Colon Attending Oncologist: Dr. Trung Vargas Medication Requested: 5FU Route of Infusion: Pump Length of infusion: 46 hours Chemotherapy to be disconnected at clinic: yes, date: 46 hours after start. Pt is due for next treatment 01/12/24 documented in this encounter Plan of Treatment Upcoming Encounters Date Type Department Care Team (Late st Contact Info) Description 01/12/2024 11:45 AM EDT Hem/Onc Treatment [facility]ematology/[facility]cology [facility], [place] [facility] [address] Mckenna, Chair 2 Hem Onc [facility] [address] [facility] [address] Health Maintenance Due Date Last Done Comments [...] as of this encounter Care Teams Manager Consumer Relationship Specialty Start Date End Date Johanne Berman PA-C [address] [place] [address] PCP - General Physician Engineer Third Assistant 09/23/23 documented as of this encounter
--- OUTSIDE RECORDS SUMMARY | 2024-01-19 23:23 | External Medical Summary ---
Author Name Unknown Address Unknown Organization K01:[facility] - [address] [place] [address] Laboratory Report Ordering Provider Test Date Status HANH COLES 01/08/2024 10:01:22 Final Observation Date Value Abnormality Reference (Units ) Status Hepatitis B virus core Ab [Presence] in Serum 01/08/2024 10:01:22 Negative Negative Final Performing Location LABOR[facility]ORY [facility] - [address] [place] [address]
--- OUTSIDE RECORDS SUMMARY | 2024-01-19 23:23 | External Medical Summary | Summary of Care ---
Author Name Unknown Organization [facility] Address [address] [facility] [address] Phone [phone] Care Team Providers Care Chapter Relations Administrator Name Role Phone Johanne Berman PA-C Primary Care Provi betina Reason for Visit * Reason Onset Date Comments Precert Future 01/08/2024 FOLFOX Encounter Details Date Type Department Care Team (Late st Contact Info) Description 01/08/2024 Telephone Hematology/Oncology [facility] State Mia Andres [address] [place] [id number] Trung Vargas MD [address] [place] [id number] Precert Future (FOLFOX) Allergies No known active [...] Vargas: - Patient previously on FOLFOX with [facility], transition to our office and will [...] 11:45 AM EDT Hem/Onc Treatment Hematology/Oncology Treatment, [address] [address] [place], Chair 2 Hem Onc [address] [place] [address] Scheduled Orders Name Type Priority Associated Diagnoses [...] colon documented in this encounter Care Teams Chapter Relations Administrator Relationship Specialty Start Date End Date Johanne Berman PA-C [address] [place] [address] PCP - General Physician Line Construction Superintendent 09/23/23 documented as of this encounter
--- OUTSIDE RECORDS SUMMARY | 2024-01-19 23:23 | External Medical Summary | Summary of Care ---
Author Name Unknown Organization [facility] Address [address] [facility] [address] Phone [phone] Care Team Providers Care Pt Escort Name Role Phone Johanne Berman PA-C Primary Care Provi betina Reason for Visit * Reason Onset Date Comments Advice 01/11/2024 Dr. Vargas Encounter Details Date Type Department Care Team (Late st Contact Info) Description 01/11/2024 Telephone Hematology/Oncology [facility] Mia Andres [address] [place] [id number] Trung Vargas MD [address] [place] [id number] Advice (Dr. Vargas) Allergies No known active [...] encounter Miscellaneous Notes * Telephone Encounter - Agustina Gruber OSA - 01/11/2024 10:56 AM EDT Pt's Abeba called in asking for a nurse to return her call in regards to: They want to know if they will be replacing his pump tomorrow because Lisa isn't associated with [facility] and he may not have one for his treatment tomorrow and if that's the case and she doesn't want to relinquish this one of it stops him from being able to get his chemo tomorrow [phone] pt's Abeba documented in this encounter Plan of Treatment Upcoming Encounters Date Type Department Care Team (Latest Contact Info) Description 01/12/2024 11:45 AM EDT Hem/Onc Treatment Hematology/Oncolog y Treatment, [place] [address] [place] [address] Mckenna, Chair 2 Hem Onc [address] [place] [address] Encounter for antineoplastic chemotherapy*; Malignant [...] filedocumented as of this encounter Care Teams Pt Escort Relationship Specialty Start Date End Date Johanne Berman PA-C [address] [place] [address] [place] [address] PCP - General Physician Catalog Library Assistant 09/23/23 documented as of this encounter
--- OUTSIDE RECORDS SUMMARY | 2024-01-19 23:23 | External Medical Summary ---
Author Name Unknown Address Unknown Organization K09:[facility] [address] [place] [address] Laboratory Report Ordering Provider Test Date Status HANH COLES 01/08/2024 10:00:36 Final Observation Date Value Abnormality Reference (Units ) Status BUN 01/08/2024 10:00:36 22 Above high normal 6-20 (mg/dL) Final Creatinine 01/08/2024 10:00:36 1.2 0.6-1.2 (mg/dL) Final Glomerular filtration rate/1.73 sq M.predicted [Volume Rate/Area] in Serum, Plasma or Blood by Creatinine-based formula (CKD-EPI) 01/08/2024 10:00:36 59 Below low normal >=60 (mL/min) Final eGFR is calculated based on the CKD-EPI 2020 equation. Sodium 01/08/2024 10:00:36 142 135-146 (m mol/L) Final Potassium 01/08/2024 10:00:36 4.3 3.5-5.1 (m mol/L) Final Cl 01/08/2024 10:00:36 104 98-107 (mm ol/L) Final CO2 01/08/2024 10:00:36 26 22-32 (mmo l/L) Final Anion gap 01/08/2024 10:00:36 12 7-15 (mmol /L) Final Glucose 01/08/2024 10:00:36 229 Above high normal 70 -120 (mg/dL) Final Albumin 01/08/2024 10:00:36 4.0 3.8-5.0 (g /dL) Final AST (Aspartate aminotransferase) 01/08/2024 10:00:36 36 10-50 (U/L) Fin al Alk Phos 01/08/2024 10:00:36 160 Above high normal 35 -130 (U/L) Final Bilirubin, Total 01/08/2024 10:00:36 0.7 <=1 .2 (mg/dL) Final Calcium 01/08/2024 10:00:36 9.0 8.4-10.2 ( mg/dL) Final Protein 01/08/2024 10:00:36 6.8 6.0-8.3 (g /dL) Final ALT (Alanine aminotransferase) 01/08/2024 10:00:36 28 10-50 (U/L) Zachary casiano Performing Location [facility] [address] [place] [address]
--- OUTSIDE RECORDS SUMMARY | 2024-01-19 23:23 | External Medical Summary | Summary of Care ---
Author Name Unknown Organization [facility] Address [address] [facility] [place] [address] Phone [phone] Care Team Providers Care Conversion Developer Name Role Phone Johanne Berman PA-C Primary Care Provi betina Encounter Details Date Type Department Care Team (Late st Contact Info) Description 01/08/2024 Orders Only Hematology/Oncology [facility] Mia Andres [address] [place] [id number] Trung Vargas MD [address] [place] [id number] Malignant neoplasm of ascending colon (HCC)*; Encounter for screening for other viral diseases [...] other viral diseases 01/08/2024 10:01 AM EDT Scheduled Orders Name Type Priority Associated Diagnoses Orde r Schedule HEPATITIS B CORE ANTIBODIES IGG AND IGM Lab Routine Malignant neoplasm of ascending colon (HCC) Encounter for screening for other viral diseases Expected: 01/08/2024, Expires: 01/07/2025 HEPATITIS B SURFACE ANTIBODY Lab Routine Malignant neoplasm of ascending colon (HCC) Expected: 01/08/2024, Expires: 01/07/2025 HEPATITIS B SURFACE ANTIGEN Lab Routine Malignant neoplasm of ascending colon (HCC) Encounter for screening for other viral diseases Expected: 01/08/2024, Expires: 01/07/2025 Health Maintenance Due Date Last Done [...] diseases documented in this encounter Care Teams Conversion Developer Relationship Specialty Start Date End Date Johanne Berman PA-C [address] [facility] 1 [place] [address] PCP - General Physician Physician Practice Coordinator 09/23/23 documented as of this encounter
--- OUTSIDE RECORDS SUMMARY | 2024-01-19 23:24 | External Medical Summary ---
Author Name Unknown Address Unknown Organization K09:[facility] [address] [place] [address] Laboratory Report Ordering Provider Test Date Status IDDIER LOPEZ 10/16/2023 14:59:22 Final Observation Date Value Abnormality Reference (Units ) Status BUN 10/16/2023 14:59:22 16 6-20 (mg/dL) Final Creatinine 10/16/2023 14:59:22 1.3 Above high normal 0.6-1.2 (mg/dL) Final Glomerular filtration rate/1.73 sq M.predicted [Volume Rate/Area] in Serum, Plasma or Blood by Creatinine-based formula (CKD-EPI) 10/16/2023 14:59:22 55 Below low normal >=60 (mL/min) Final eGFR is calculated based on the CKD-EPI 2020 equation Sodium 10/16/2023 14:59:22 141 135-146 (m mol/L) Final Potassium 10/16/2023 14:59:22 4.4 3.5-5.1 (m mol/L) Final Cl 10/16/2023 14:59:22 105 98-107 (mm ol/L) Final CO2 10/16/2023 14:59:22 24 22-32 (mmo l/L) Final Anion gap 10/16/2023 14:59:22 12 7-15 (mmol /L) Final Glucose 10/16/2023 14:59:22 177 Above high normal 70 -120 (mg/dL) Final Albumin 10/16/2023 14:59:22 4.0 3.8-5.0 (g /dL) Final AST (Aspartate aminotransferase) 10/16/2023 14:59:22 24 10-50 (U/L) Fin al Alk Phos 10/16/2023 14:59:22 111 35-130 (U/ L) Final Bilirubin, Total 10/16/2023 14:59:22 0.8 <=1 .2 (mg/dL) Final Calcium 10/16/2023 14:59:22 8.9 8.4-10.2 ( mg/dL) Final Protein 10/16/2023 14:59:22 6.2 6.0-8.3 (g /dL) Final ALT (Alanine aminotransferase) 10/16/2023 14:59:22 19 10-50 (U/L) Zachary casiano Performing Location [facility] [address] [place] [address]
--- OUTSIDE RECORDS SUMMARY | 2024-01-19 23:24 | External Medical Summary ---
Author Name Unknown Address Unknown Organization K09:[facility] [place] [address] Laboratory Report Ordering Provider Test Date Status DIDIER LOPEZ 12/25/2023 11:42:20 Final Observation Date Value Abnormality Reference (Units ) Status Magnesium 12/25/2023 11:42:20 2.3 1.5-2.6 (m g/dL) Final Performing Location [facility] [address] [address]
--- OUTSIDE RECORDS SUMMARY | 2024-01-19 23:24 | External Medical Summary ---
Author Name Unknown Address Unknown Organization K09:[facility] [place] [address] Laboratory Report Ordering Provider Test Date Status DIDIER LOPEZ 12/25/2023 11:42:20 Final Observation Date Value Abnormality Reference (Units ) Status SYNC LEUKOCYTES IN BLOOD BY AUTOMATED COUNT 12/25/2023 11:42:20 5.65 4.00-10.80 (K/uL) Final Segs 12/25/2023 11:42:20 74.3 40.0-75.0 (%) Final Lymphs % 12/25/2023 11:42:20 11.3 Below low normal 18.0-42.0 (%) Final Monos 12/25/2023 11:42:20 12.6 Above high normal 1.0-11.0 (%) Final Eosinophils 12/25/2023 11:42:20 1.6 0.0-6.0 (%) Final Basos 12/25/2023 11:42:20 0.2 0.0-2.0 (%) Final Absolute Segs 12/25/2023 11:42:20 4.20 1.80-7.70 (K/uL) Final Lymphs, absolute 12/25/2023 11:42:20 0.64 Below low normal 1.00-4.80 (K/ul) Final Monos, Abs 12/25/2023 11:42:20 0.71 0.00-1.10 (K/uL) Final Eos, Abs 12/25/2023 11:42:20 0.09 0.00-0.70 (K/uL) Final Basos, Abs 12/25/2023 11:42:20 0.01 0.00-0.20 (K/uL) Final Performing Location [facility] [place] [address]
--- OUTSIDE RECORDS SUMMARY | 2024-01-19 23:24 | External Medical Summary ---
Author Name Unknown Address Unknown Organization K01:[facility] [place] - [address] [place] [address] Laboratory Report Ordering Provider Test Date Status DIDIER LOPEZ 10/16/2023 15:03:55 Final Observation Date Value Abnormality Reference (Units ) Status Protein, Urine 10/16/2023 15:03:55 219 (mg/d L) Final Performing Location [facility] - [address] [place] [address]
--- OUTSIDE RECORDS SUMMARY | 2024-01-19 23:24 | External Medical Summary ---
Author Name Unknown Address Unknown Organization K0G:[facility] [address] - [address] [place] [address] Laboratory Report Ordering Provider Test Date Status DIDIER LOPEZ 12/11/2023 05:55:00 Final Observation Date Value Abnormality Reference (Units ) Status WBC, Total 12/11/2023 05:55:00 6.03 4.00-10.8 0 (K/uL) Final RBC 12/11/2023 05:55:00 3.16 4.50-5.25 (M/uL) Final Hemoglobin 12/11/2023 05:55:00 12.0 Below low normal 14 .0-16.8 (g/dL) Final HCT 12/11/2023 05:55:00 36.4 Below low normal 40. 0-48.4 (%) Final MCV 12/11/2023 05:55:00 115.2 82.0-99.5 (fL) Final MCH 12/11/2023 05:55:00 38.0 27.0-34.0 (pg) Final MCHC 12/11/2023 05:55:00 33.0 32.0-36.0 (g/dL) Final RDW 12/11/2023 05:55:00 15.4 11.5-15.5 (%) Final Platelets 12/11/2023 05:55:00 162 140-400 (K /uL) Final MPV 12/11/2023 05:55:00 10.5 6.6-11.1 ( fL) Final Performing Location [facility] [address] - [address] [place] [id number]
--- OUTSIDE RECORDS SUMMARY | 2024-01-19 23:24 | External Medical Summary ---
Author Name Unknown Address Unknown Organization K0G:[facility] [address] - [address] [place] [address] Laboratory Report Ordering Provider Test Date Status TRISHA FREEMAN 10/30/2023 06:49:23 Final Observation Date Value Abnormality Reference (Units ) Status WBC, Total 10/30/2023 06:49:23 6.79 4.00-10.8 0 (K/uL) Final RBC 10/30/2023 06:49:23 3.15 4.50-5.25 (M/uL) Final Hemoglobin 10/30/2023 06:49:23 11.9 Below low normal 14 .0-16.8 (g/dL) Final HCT 10/30/2023 06:49:23 35.8 Below low normal 40. 0-48.4 (%) Final MCV 10/30/2023 06:49:23 113.7 82.0-99.5 (fL) Final MCH 10/30/2023 06:49:23 37.8 27.0-34.0 (pg) Final MCHC 10/30/2023 06:49:23 33.2 32.0-36.0 (g/dL) Final RDW 10/30/2023 06:49:23 15.5 11.5-15.5 (%) Final Platelets 10/30/2023 06:49:23 136 Below low normal 140 -400 (K/uL) Final MPV 10/30/2023 06:49:23 10.4 6.6-11.1 ( fL) Final Performing Location [facility] [address] [place] [address]
--- OUTSIDE RECORDS SUMMARY | 2024-01-19 23:24 | External Medical Summary ---
Author Name Unknown Address Unknown Organization K0G:[facility] [address] - [address] [place] [address] Laboratory Report Ordering Provider Test Date Status TRISHA FREEMAN 10/30/2023 06:49:23 Final Observation Date Value Abnormality Reference (Units ) Status SYNC LEUKOCYTES IN BLOOD BY AUTOMATED COUNT 10/30/2023 06:49:23 6.79 4.00-10.80 (K/uL) Final Segs 10/30/2023 06:49:23 66.4 40.0-75.0 (%) Final Lymphs % 10/30/2023 06:49:23 15.5 Below low normal 18.0-42.0 (%) Final Monos 10/30/2023 06:49:23 13.1 Above high normal 1.0-11.0 (%) Final Eosinophils 10/30/2023 06:49:23 4.6 0.0-6.0 (%) Final Basos 10/30/2023 06:49:23 0.4 0.0-2.0 (%) Final Absolute Segs 10/30/2023 06:49:23 4.51 1.80-7.70 (K/uL) Final Lymphs, absolute 10/30/2023 06:49:23 1.05 1.00-4.80 (K/ul) Final Monos, Abs 10/30/2023 06:49:23 0.89 0.00-1.10 (K/uL) Final Eos, Abs 10/30/2023 06:49:23 0.31 0.00-0.70 (K/uL) Final Basos, Abs 10/30/2023 06:49:23 0.03 0.00-0.20 (K/uL) Final Performing Location [facility] [address] [place] [address]
--- OUTSIDE RECORDS SUMMARY | 2024-01-19 23:24 | External Medical Summary | Summary of Care ---
Author Name Unknown Organization [facility] Address [address] [facility] [address] Phone [phone] Care Team Providers Care Dental Laboratory Manager Name Role Phone Johanne Berman PA-C Primary Care Provi betina Encounter Details Date Type Department Care Team (Late st Contact Info) Description 11/13/2023 Orders Only Lab [facility] [address] [facility] [id number] Johanne Berman PA-C [address] [facility] 1 [place] Sun [address] Routine medical exam* Social History Tobacco Use Types Packs/Day Years [...] as of this encounter Plan of Treatment Scheduled Orders Name Type Priority Associated Diagnoses Orde r Schedule CBC WITH WBC DIFFERENTIAL Lab Routine Routine medical exam Expected: 11/13/2023, Expires: 11/12/2024 CEA Lab Routine Routine medical exam Expected: 11/13/2023, Expires: 11/12/2024 COMPREHENSIVE METABOLIC PANEL Lab Routine Routine medical exam Expected: 11/13/2023, Expires: 11/12/2024 PROTEIN, RANDOM URINE Lab Routine Routine medical exam Expected: 11/13/2023, Expires: 11/12/2024 Health Maintenance Due Date Last Done Comments Depression Screening 1952 COVID-19 Vaccine ( season) 2022 05/08/2021, 12/24/2020, 11/27/2020, Additional history exists Influenza Vaccine (FLU shot) (#1) 2023 01/09/2023, 01/09/2023, 12/27/2021, Additional history exists DTaP,Tdap,and Td Vaccines (2 - Td or Tdap) 10/08/2032 [...] as of this encounter Visit Diagnoses Diagnosis Routine medical exam- Primary Routine general medical examination at a health care facility documented in this encounter Care Teams Dental Laboratory Manager Relationship Specialty Start Date End Date Johanne Berman PA-C [address] [place] [address] PCP - General Physician Blueprinting And Photocopy Supervisor 09/23/23 documented as of this encounter
--- OUTSIDE RECORDS SUMMARY | 2024-01-19 23:24 | External Medical Summary ---
Author Name Unknown Address Unknown Organization K01:[facility] [place] [address] [place] [address] Laboratory Report Ordering Provider Test Date Status DIDIER LOPEZ 11/27/2023 06:25:00 Final Observation Date Value Abnormality Reference (Units ) Status Protein, Urine 11/27/2023 06:25:00 93 (mg/d L) Final Performing Location [facility] - [address] [place] [address]
--- OUTSIDE RECORDS SUMMARY | 2024-01-19 23:24 | External Medical Summary ---
Author Name Unknown Address Unknown Organization K0G:[facility] [address] - [address] [place] [address] Laboratory Report Ordering Provider Test Date Status DIDIER LOPEZ 11/27/2023 06:25:00 Final Observation Date Value Abnormality Reference (Units ) Status BUN 11/27/2023 06:25:00 18 6-20 (mg/dL) Final Creatinine 11/27/2023 06:25:00 1.1 0.6-1.2 (mg/dL) Final Glomerular filtration rate/1.73 sq M.predicted [Volume Rate/Area] in Serum, Plasma or Blood by Creatinine-based formula (CKD-EPI) 11/27/2023 06:25:00 65 >=60 (mL/min) Final eGFR is calculated based on the CKD-EPI 2020 equation. Sodium 11/27/2023 06:25:00 143 135-146 (m mol/L) Final Potassium 11/27/2023 06:25:00 4.7 3.5-5.1 (m mol/L) Final Cl 11/27/2023 06:25:00 107 98-107 (mm ol/L) Final CO2 11/27/2023 06:25:00 25 22-32 (mmo l/L) Final Anion gap 11/27/2023 06:25:00 11 7-15 (mmol /L) Final Glucose 11/27/2023 06:25:00 129 Above high normal 70 -120 (mg/dL) Final Albumin 11/27/2023 06:25:00 3.7 Below low normal 3.8 -5.0 (g/dL) Final AST (Aspartate aminotransferase) 11/27/2023 06:25:00 22 10-50 (U/L) Fin al Alk Phos 11/27/2023 06:25:00 115 35-130 (U/ L) Final Bilirubin, Total 11/27/2023 06:25:00 0.6 <=1 .2 (mg/dL) Final Calcium 11/27/2023 06:25:00 9.1 8.4-10.2 ( mg/dL) Final Protein 11/27/2023 06:25:00 5.7 Below low normal 6.0 -8.3 (g/dL) Final ALT (Alanine aminotransferase) 11/27/2023 06:25:00 22 10-50 (U/L) Zachary casiano Performing Location [facility] [place] [address] [place] [address]
--- OUTSIDE RECORDS SUMMARY | 2024-01-19 23:24 | External Medical Summary ---
Author Name Unknown Address Unknown Organization K01:[facility]ATORY [facility] [place] [address] [place] [address] Laboratory Report Ordering Provider Test Date Status DIDIER LOPEZ 12/25/2023 11:00:00 Final Observation Date Value Abnormality Reference (Units ) Status Protein, Urine 12/25/2023 11:00:00 109 (mg/d L) Final Performing Location [facility] [place] [address] [place] [address]
--- OUTSIDE RECORDS SUMMARY | 2024-01-19 23:24 | External Medical Summary ---
Author Name Unknown Address Unknown Organization K0G:LAB[facility]ORY [facility] [address] - [address] [place] [address] Laboratory Report Ordering Provider Test Date Status DIDIER LOPEZ 12/03/2023 07:15:50 Final Observation Date Value Abnormality Reference (Units ) Status Color of Urine by Auto 12/03/2023 07:15:50 Yellow Light Yellow, Yellow, Dark Yellow Final Clarity, Urine 12/03/2023 07:15:50 Clear Clear Final Glucose [Mass/volume] in Urine by Automated test strip 12/03/2023 07:15:50 500 Abnormal Negative (mg/dL) Final Bilirubin.total [Presence] in Urine by Automated test strip 12/03/2023 07:15:50 Negative Negative Final Ketones [Mass/volume] in Urine by Automated test strip 12/03/2023 07:15:50 Negative Negative (mg/dL) Final Specific gravity, Urine 12/03/2023 07:15:50 >=1.030 1.003-1.030 Final Hemoglobin [Presence] in Urine by Automated test strip 12/03/2023 07:15:50 Negative Negative Final pH, Urine 12/03/2023 07:15:50 6.0 5.0-7.5 (Units) Final Protein [Mass/volume] in Urine by Automated test strip 12/03/2023 07:15:50 100 Abnormal Negative (mg/dL) Final Urobilinogen [Mass/volume] in Urine by Automated test strip 12/03/2023 07:15:50 0.2 0.2, 1.0 (mg/dL) Final Nitrite [Presence] in Urine by Automated test strip 12/03/2023 07:15:50 Negative Negative Final Leukocyte esterase [Presence] in Urine by Automated test strip 12/03/2023 07:15:50 Negative Negative Final RBC, Urine 12/03/2023 07:15:50 0-2 0-2 (/HPF) Final WBC, Urine 12/03/2023 07:15:50 0-2 0-2 (/HPF) Final Bacteria [#/area] in Urine sediment by Microscopy high power field 12/03/2023 07:15:50 0-25 0-25 (/HPF) Final CULTURE, URINE - [facility] 12/03/2023 07:15:50 Final Culture not indicated by uri nalysis results\[id number]\ Performing Location LAB[facility]ATORY [place] [address] [place] [address]
--- OUTSIDE RECORDS SUMMARY | 2024-01-19 23:24 | External Medical Summary | Summary of Care ---
Author Name Unknown Organization [facility] Address [address] [facility] [address] Phone [phone] Care Team Providers Care Family And Consumer Sciences Teacher Name Role Phone Johanne Berman PA-C Primary Care Provi betina Reason for Visit * Reason Onset Date Comments Insurance 10/16/2023 Encounter Details Date Type Department Care Team (Late st Contact Info) Description 10/16/2023 Telephone Laboratory [place] [address] [facility] [address] Johanne Berman PA-C 800 [facility] [address] [place] [address] Insurance Social History Tobacco Use Types Packs/Day Years [...] Telephone Encounter - Viral Ramos OSA - 10/16/2023 10:25 AM EDT Patient came in for lab work. He had no insurance linked to his account, so I attempted to obtain it. He supplied a Medicare Supplement, but did not have his Medicare card with him. I explained we would need the Medicare card so that insurance could be billed properly. He became angry, stating thatit should already be in the system. I explained we needed to update it, and he could call in later with the Medicare ID. He was in a hurry and left without being seen by lab, citing that he had to goto another appointment. I apologized for the inconvenience. He replied "me too," and walked out. documented in this encounter Plan of Treatment Health Maintenance Due Date Last Done Comments Depression Screening 1952 DTaP,Tdap,and Td Vaccines (1 - Tdap) 1958 Zoster Vaccines (1 of 2) 1989 Pneumococcal Vaccine: 65+ Ye ars (1 of 1 - PCV) 2004 COVID-19 Vaccine ( - 2022-2 4 season) 2022 Influenza Vaccine (FLU shot) (#1) 2023 HPV (Gardasil) Vaccine Aged Out No lo [...] filedocumented as of this encounter Care Teams Family And Consumer Sciences Teacher Relationship Specialty Start Date End Date Johanne Berman PA-C [address] [facility] 1 [place] [address] PCP - General Physician Child Care Attendant 09/23/23 documented as of this encounter
--- OUTSIDE RECORDS SUMMARY | 2024-01-19 23:24 | External Medical Summary | Summary of Care ---
Author Name Unknown Organization [facility] Address [address] [facility] [address] Phone [phone] Care Team Providers Care Director Construction Services Name Role Phone Johanne Berman PA-C Primary Care Provi betina Encounter Details Date Type Department Care Team (Late st Contact Info) Description 11/27/2023 Orders Only [facility] [facility] [address] Johanne Berman PA-C 800 [facility] 1 [place] [address] Routine medical exam* Social History Tobacco Use [...] Type Priority Associated Diagnoses Orde r Schedule PROTEIN, RANDOM URINE Lab Routine Routine medical exam Expected: 11/27/2023, Expires: 11/26/2024 COMPREHENSIVE METABOLIC PANEL Lab Routine Routine medical exam Expected: 11/27/2023, Expires: 11/26/2024 CBC WITH WBC DIFFERENTIAL Lab Routine Routine medical exam Expected: 11/27/2023, Expires: 11/26/2024 CEA Lab Routine Routine medical exam Expected: 11/27/2023, Expires: 11/26/2024 MAGNESIUM Lab Routine Routine medical exam Expected: 11/27/2023, Expires: 11/26/2024 Health Maintenance Due Date Last Done Comments [...] facility documented in this encounter Care Teams Director Construction Services Relationship Specialty Start Date End Date Johanne Berman PA-C [address] [facility] 1 [place] [address] PCP - General Physician Commercial Crabber 09/23/23 documented as of this encounter
--- OUTSIDE RECORDS SUMMARY | 2024-01-19 23:24 | External Medical Summary ---
Author Name Unknown Address Unknown Organization K0G:LAB[facility]ATORY [facility] [address] - [address] [place] [address] Laboratory Report Ordering Provider Test Date Status DIDIER LOPEZ 12/11/2023 05:55:00 Final Observation Date Value Abnormality Reference (Units ) Status BUN 12/11/2023 05:55:00 28 Above high normal 6-20 (mg/dL) Final Creatinine 12/11/2023 05:55:00 1.2 0.6-1.2 (mg/dL) Final Glomerular filtration rate/1.73 sq M.predicted [Volume Rate/Area] in Serum, Plasma or Blood by Creatinine-based formula (CKD-EPI) 12/11/2023 05:55:00 59 Below low normal >=60 (mL/min) Final eGFR is calculated based on the CKD-EPI 2020 equation. Sodium 12/11/2023 05:55:00 144 135-146 (m mol/L) Final Potassium 12/11/2023 05:55:00 4.7 3.5-5.1 (m mol/L) Final Cl 12/11/2023 05:55:00 109 Above high normal 98 -107 (mmol/L) Final CO2 12/11/2023 05:55:00 26 22-32 (mmo l/L) Final Anion gap 12/11/2023 05:55:00 9 7-15 (mmol /L) Final Glucose 12/11/2023 05:55:00 118 70-120 (mg /dL) Final Albumin 12/11/2023 05:55:00 3.6 Below low normal 3.8 -5.0 (g/dL) Final AST (Aspartate aminotransferase) 12/11/2023 05:55:00 21 10-50 (U/L) Fin al Alk Phos 12/11/2023 05:55:00 110 35-130 (U/ L) Final Bilirubin, Total 12/11/2023 05:55:00 0.4 <=1 .2 (mg/dL) Final Calcium 12/11/2023 05:55:00 9.0 8.4-10.2 ( mg/dL) Final Protein 12/11/2023 05:55:00 5.5 Below low normal 6.0 -8.3 (g/dL) Final ALT (Alanine aminotransferase) 12/11/2023 05:55:00 18 10-50 (U/L) Zachary casiano Performing Location [facility] [address] - [address] [facility] [address]
--- OUTSIDE RECORDS SUMMARY | 2024-01-19 23:24 | External Medical Summary | Summary of Care ---
Author Name Unknown Organization [facility] Address [address] [place] [facility] [place] [address] Phone [phone] Care Team Providers Care Survey Manager Name Role Phone Johanne Berman PA-C Primary Care Provi betina Encounter Details Date Type Department Care Team (Late st Contact Info) Description 11/13/2023 Orders Only Lab Mobile Phlebotomy [facility] [address] [facility] [place] [phone] Adam Granados CRNP [address] [place] [address] [phone] DM type 2, not at goal (HCC)*; Dyslipidemia, goal to be determined Social History Tobacco Use Types Packs/Day Years [...] Type Priority Associated Diagnoses Orde r Schedule LIPID PANEL WITHOUT DIRECT LDL Lab Routine DM type 2, not at goal (HCC) Dyslipidemia, goal to be determined Expected: 11/13/2023, Expires: 11/12/2024 HEMOGLOBIN A1C Lab Routine DM type 2, not at goal (HCC) Dyslipidemia, goal to be determined Expected: 11/13/2023, Expires: 11/12/2024 Health Maintenance Due [...] as of this encounter Visit Diagnoses Diagnosis DM type 2, not at goal (HCC)- Primary Type II or unspecified type diabetes mellitus without mention of complication, not stated as uncontrolled Dyslipidemia, goal to be determined Other and unspecified hyperlipidemia documented in this encounter Care Teams Survey Manager Relationship Specialty Start Date End Date Johanne Berman PA-C [address] [place] [phone] PCP - General Physician Line Out Worker 09/23/23 documented as of this encounter
--- OUTSIDE RECORDS SUMMARY | 2024-01-19 23:24 | External Medical Summary ---
Author Name Unknown Address Unknown Organization K01:LABORATORY C - [address] [place] [address] Laboratory Report Ordering Provider Test Date Status DIDIER LOPEZ 10/16/2023 14:59:22 Final Observation Date Value Abnormality Reference (Units ) Status CEA 10/16/2023 14:59:22 159.0 Above high normal <= 5.2 (ng/mL) Final Performing Location [facility] - [address] [place] [address]
--- OUTSIDE RECORDS SUMMARY | 2024-01-19 23:24 | External Medical Summary | Summary of Care ---
Author Name Unknown Organization [facility] Address [address] [facility] [place] [address] Phone [phone] Care Team Providers Care Spray Dry Operator Name Role Phone Johanne Berman PA-C Primary Care Provi betina Reason for Visit * Reason Comments Outpatient Testing Encounter Details Date Type Department Care Team (Late st Contact Info) Description 10/16/2023 2:40 PM EDT Laboratory Laboratory [address] [place] [address] [place] [address] [place], [facility] [address] [place] [phone] Secondary malignant neoplasm of lung (HCC) Social History Tobacco Use Types Packs/Day Years [...] Name Type Priority Associated Diagnoses Date /Time COMPREHENSIVE METABOLIC PANEL Lab Routine Secondary malignant neoplasm of lung (HCC) 10/16/2023 2:59 PM EDT CEA Lab Routine Secondary malignant neoplasm of lung (HCC) 10/16/2023 2:59 PM EDT PROTEIN, RANDOM URINE Lab Routine Secondary malignant neoplasm of lung (HCC) 10/16/2023 3:03 PM EDT Health Maintenance Due Date Last Done [...] Priority Date/Time Associated Diagnosis Comments DIFFERENTIAL, AUTOMATED Routine 10/16/2023 2:59 PM EDT Secondary malignant neoplasm of lung (HCC) CBC Routine 10/16/2023 2:59 PM EDT Secondary malignant neoplasm of lung (HCC) CBC Routine 10/16/2023 2:59 PM EDT Secondary malignant neoplasm of lung (HCC) documented in this encounter Results * (ABNORMAL) DIFFERENTIAL, AUTOMATED (10/16/2023 2:59 PM EDT) WBC 7.56 4.00 - 10.80 K/uL 10/16/2023 3:04 PM EDT LABORATORY [place] 56-02 Neutrophils % 74.6 40.0 - 75.0 % 10/16/2023 3:04 PM EDT [facility] 56 Lymphocytes % 11.5(L) 18.0 - 42.0 % 10/16/2023 3:04 PM EDT [facility] 56 Monocytes % 11.4(H) 1.0 - 11.0 % 10/16/2023 3:04 PM EDT [facility] 56 Eosinophils % 2.2 0.0 - 6.0 % 10/16/2023 3:04 PM EDT [facility] 56 Basophils % 0.3 0.0 - 2.0 % 10/16/2023 3:04 PM EDT [facility] 56 Absolute Neutrophils 5.64 1.80 - 7.70 K/uL 10/16/2023 3:04 PM EDT [facility] 56 Absolute Lymphocytes 0.87(L) 1.00 - 4.80 K/ul 10/16/2023 3:04 PM EDT [facility] 56 Absolute Monocytes 0.86 0.00 - 1.10 K/uL 10/16/2023 3:04 PM EDT [facility] 56 Absolute Eosinophils 0.17 0.00 - 0.70 K/uL 10/16/2023 3:04 PM EDT [facility] 56 Absolute Basophils 0.02 0.00 - 0.20 K/uL 10/16/2023 3:04 PM EDT [facility] 56 Blood Venous blood specimen / Unknown Venipuncture / Unknown 10/16/2023 2:59 PM EDT 10/16/2023 3:00 PM EDT Johanne Berman PA-C LAB BLOOD O RDERABLES [facility] [address] [place] [address] * (ABNORMAL) CBC (10/16/2023 2:59 PM EDT) WBC 7.56 4.00 - 10.80 K/uL 10/16/2023 3:04 PM EDT [facility] 56 RBC 3.20 4.50 - 5.25 M/uL 10/16/2023 3:04 PM EDT [facility] 56 HGB 12.6(L) 14.0 - 16.8 g/dL 10/16/2023 3:04 PM EDT [facility] 56 HCT 35.9(L) 40.0 - 48.4 % 10/16/2023 3:04 PM EDT [facility] 56 MCV 112.2 82.0 - 99.5 fL 10/16/2023 3:04 PM EDT [facility] 56 MCH 39.4 27.0 - 34.0 pg 10/16/2023 3:04 PM EDT [facility] 56 MCHC 35.1 32.0 - 36.0 g/dL 10/16/2023 3:04 PM EDT [facility] 56 RDW 16.0 11.5 - 15.5 % 10/16/2023 3:04 PM EDT [facility] 56 PLT 158 140 - 400 K/uL 10/16/2023 3:04 PM EDT [facility] 56 MPV 10.2 6.6 - 11.1 fL 10/16/2023 3:04 PM EDT [facility] 56 Blood Venous blood specimen / Unknown Venipuncture / Unknown 10/16/2023 2:59 PM EDT 10/16/2023 3:00 PM EDT Johanne Berman PA-C LAB BLOOD O RDERABLES [facility] [address] [place] [address] documented in this encounter Visit Diagnoses Diagnosis Secondary malignant neoplasm of lung (HCC) Secondary malignant neoplasm of lung documented in this encounter Care Teams Spray Dry Operator Relationship Specialty Start Date End Date Johanne Berman PA-C [address] [facility] [place] [address] PCP - General Physician Director [employer] 09/23/23 documented as of this encounter
--- OUTSIDE RECORDS SUMMARY | 2024-01-19 23:24 | External Medical Summary ---
Author Name Unknown Address Unknown Organization K01:LABORATORY C - [address] [place] [address] Laboratory Report Ordering Provider Test Date Status TRISHA FREEMAN 10/30/2023 06:49:23 Final Observation Date Value Abnormality Reference (Units ) Status BERTRAM 10/30/2023 06:49:23 173.4 Above high normal <= 5.2 (ng/mL) Final Performing Location [facility] [address] [facility] [address]
--- OUTSIDE RECORDS SUMMARY | 2024-01-19 23:24 | External Medical Summary | Summary of Care ---
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) Procedures CT CHEST/ABDOMEN/PELVIS WITH IV CONTRAST WITH ORAL CONTRAST Trung Vargas MD [address] [facility] [place] [id number] Referral ID Status Reason Start Date Expiration Date V isits Requested Visits Authorized [id number] Authorized 12/31/2023 999 999 Reason for Visit * Reason Comments NEW PATIENT * Evaluate & Treat - Unlimited Visits (Within 10 days (routine)) - Closed Specialty Diagnoses / Procedures Referred By Verito de souza Referred To Contact Hematology/Oncology / Hematology Oncology Diagnoses Malignant neoplasm of colon (HCC) 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) Johanne Berman PA-C [address] [place], [place] [address] [address] Referral ID Status Reason Start Date Expiration Date V isits Requested Visits Authorized [id number] Closed Specialty Services Required 12/16/2023 1 1 Encounter Details Date Type Department Care Team (Late st Contact Info) Description 12/31/2023 9:45 AM EDT Office Visit Hematology/Oncology [place] [address] [place] [phone] Trung Vargas MD [address] [place], [place] [address] Malignant neoplasm of ascending colon (HCC)*; Malignant [...] Sign Reading Time Taken Comments Blood Pressure 118/60 12/31/2023 9:46 AM EDT Pulse 63 12/31/2023 9:46 AM EDT Temperature 36.3 C (97.3 F) 12/31/2023 9:46 AM ED T Respiratory Rate - - Oxygen Saturation 94% 12/31/2023 9:46 AM EDT Inhaled Oxygen Concentration - - Weight 75.8 kg (167 lb) 12/31/2023 9:46 AM EDT Height - - Body Mass Index - - documented in this encounter Progress Notes * Trung Vargas MD - 12/31/2023 9:45 AM EDT Hematology/Oncology Outpatient Consult Note Ran Andres [address] [facility] [place] [address] SHANTE VAZ JR. MR # [id number] :1940 83-year-old male, REASON FOR CONSULTATION: Consultation for Shante Vaz Jr. requested by Johanne Berman PA-C for evaluation and discussion of treatment options for metastatic colon cancer. 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 ( 2013). SANDRA, KERON WT Late 2017 --> recurrent disease noted in the lungs, no recurrent decision the abdomen pelvis Earlier he was followed by medical oncologist from [facility] Dr. Wojciech Camarena lately with Dr. Kolb from [facility]. I reviewed their progress notes. Now he would like to transfer the care with us. CURRENT TREATMENT: Presently he is receiving 5-Fluorouracil and leucovorin and oxaliplatin every 2 weekly at [facility]. PREVIOUS TREATMENT: CAPOX x6 between April 2014 [...] [facility] ( [facility]- August 2014). He had [...] 139.3 Insert line Transfer the care to [facility] with . Continued 5-Fluorouracil without Bevacizumab every [...] He has come the clinic for the initial evaluation, accompanied by his son and [id number] in the office. Overall he is feeling well, some tiredness, no blood in the stool, no new cardiac or pulmonary symptom, some shortness of breath on exertion, no abdominal symptoms, no leg edema, has some mild tingling and numbness of extremities which is stable. REVIEW OF SYSTEMS: GENERAL: No change in weight, some weakness and fatigue no fever, sweats or chills. Current weight is around 167 lb. SKIN: No skin rash, no bruising. HEAD: No new headache, no dizziness. EYES: No recent change in the vision, no diplopia, EARS: No earache no tinnitus, NOSE: No epistaxis, No nasal discharge or stuffiness, MOUTH: No sores, no dysphagia, no hoarseness of voice, NECK: No lumps, No swelling in thyroid area. No stiffness. PULMONARY: No cough, No shortness of breath, no hemoptysis, no chest pain, No wheezing. CARDIOVASCULAR: No anginal chest pain, no PND, no orthopnea. No palpitation, no leg edema. No syncope. GASTROINTESTINAL: No abdominal pain, no nausea or vomiting. No diarrhea, No constipation. No blood in stool or black tarry stools. No abdominal distention. UROLOGIC: No burning urination. No hematuria. MUSCULOSKELETAL: No joint pain, No joint swelling, no muscle weakness. HEMATOLOGIC: No anemia, no bleeding disorder, No bruising. NEUROLOGIC: No seizures, no focal weakness, no speech difficulty, No memory disturbances. Mild tingling and numbness of the extremities. PSYCHIATRIC: No depression. No anxiety. No psychosis. No past medical history on file. No past surgical history on file. No current outpatient medications on file. No current facility-administered medications for this visit. [...] Stability: Not on file On Exam: BP 118/60 (BP Site: Left Arm, BP Position: Sitting, BP Cuff Size: Regular) | Pulse 63 | Temp 36.3 C (97.3 F) (Tympanic) | Wt 75.8 kg (167 lb) | SpO2 94% Constitutional: Patient is alert, cooperative and oriented [...] and hematocrit -12.5/36.8, MCV 113, Platelet count [id number] -BUN/Creat: 17/1.2 -AST 26, ALT 18, alkaline phosphatase 156, bilirubin level 0.8 -CEA level --> 243. IMAGING: Planning for another CT scan of chest, abdomen pelvis ASSESSMENT AND PLAN: 83-year-old male, a case [...] the CEA level noted andso oxaliplatin was added. He gets treatment every 2 weekly at [facility]. Now he would like to transfer the care with us. I reviewed with them regarding the overall treatment goal which would be palliative and not curative, would like to review the NGS checkup result. Planning for CT scan of chest, abdomen pelvis and then would like to see him back in the clinic. We talked about different treatment options that can be considered in the future. Thanks for the consultation. Dr. rTung Vargas Hem/Onc (This note was completed using [...] Notes * Latonya Escalona, MED ASSIST - 12/31/2023 9:45 AM EDT Patient identifed by name and [...] can activate it for you? ALREADY ACTIVE Vitals: 12/31/23 0946 Temp: 36.3 C (97.3 F) Pulse: 63 SpO2: 94% BP: 118/60 Patient was instructed to not get up [...] Description 01/06/2024 8:00 AM EDT Imaging Radiology [address] [place] [address] 01/08/2024 9:15 AM EDT Office Visit Hematology/Oncology 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
--- OUTSIDE RECORDS SUMMARY | 2024-01-19 23:24 | External Medical Summary ---
Author Name Unknown Address Unknown Organization K01:[facility] [address] [place] [address] Laboratory Report Ordering Provider Test Date Status DIDIER LOPEZ 12/11/2023 05:55:00 Final Observation Date Value Abnormality Reference (Units ) Status Protein, Urine 12/11/2023 05:55:00 114 (mg/d L) Final Performing Location [facility] - [address] [place] [address]
--- OUTSIDE RECORDS SUMMARY | 2024-01-19 23:24 | External Medical Summary ---
Author Name Unknown Address Unknown Organization K09:LABORATORY [place] [address] Laboratory Report Ordering Provider Test Date Status DIDIER LOPEZ 12/03/2023 13:47:07 Final Observation Date Value Abnormality Reference (Units ) Status Magnesium 12/03/2023 13:47:07 1.9 1.5-2.6 (m g/dL) Final Performing Location LAB[facility]ATORY [place] [address]
--- OUTSIDE RECORDS SUMMARY | 2024-01-19 23:24 | External Medical Summary ---
Author Name Unknown Address Unknown Organization K01:LABORATORY [facility] [address] [place] [address] Laboratory Report Ordering Provider Test Date Status DIDIER LOPEZ 12/03/2023 07:15:50 Final Normal: <30 mg/g creatinine< br/>High: 30-300 mg/g creatinine
Very High: >300 mg/g creatinine
Nephrotic: >2200 mg/g creatinine Observation Date Value Abnormality Reference (Units ) Status Albumin, Urine 12/03/2023 07:15:50 59.00 (mg/dL) Final Creatinine, Urine 12/03/2023 07:15:50 60 (mg/dL) Final Albumin/Creatinine [Mass Ratio] in Urine 12/03/2023 07:15:50 983 Above high normal <30 (mg/g Creat) Final Performing Location LABORATORY [facility] - [facility] [address] [place] [address]
--- OUTSIDE RECORDS SUMMARY | 2024-01-19 23:24 | External Medical Summary ---
Author Name Unknown Address Unknown Organization K01:LABORATORY C - [address] [place] [address] Laboratory Report Ordering Provider Test Date Status DIDIER LOPEZ 12/11/2023 05:55:00 Final Observation Date Value Abnormality Reference (Units ) Status CEA 12/11/2023 05:55:00 220.1 Above high normal <= 5.2 (ng/mL) Final Performing Location [facility] - [address] [place] [address]
--- OUTSIDE RECORDS SUMMARY | 2024-01-19 23:24 | External Medical Summary ---
Author Name Unknown Address Unknown Organization K0G:LABORATORY [place] [address] - [address] [place] [address] Laboratory Report Ordering Provider Test Date Status DIDIER LOPEZ 11/13/2023 06:15:00 Final Observation Date Value Abnormality Reference (Units ) Status BUN 11/13/2023 06:15:00 18 6-20 (mg/dL) Final Creatinine 11/13/2023 06:15:00 0.9 0.6-1.2 (mg/dL) Final Glomerular filtration rate/1.73 sq M.predicted [Volume Rate/Area] in Serum, Plasma or Blood by Creatinine-based formula (CKD-EPI) 11/13/2023 06:15:00 82 >=60 (mL/min) Final eGFR is calculated based on the CKD-EPI 2020 equation. Sodium 11/13/2023 06:15:00 142 135-146 (m mol/L) Final Potassium 11/13/2023 06:15:00 4.0 3.5-5.1 (m mol/L) Final Cl 11/13/2023 06:15:00 106 98-107 (mm ol/L) Final CO2 11/13/2023 06:15:00 22 22-32 (mmo l/L) Final Anion gap 11/13/2023 06:15:00 14 7-15 (mmol /L) Final Glucose 11/13/2023 06:15:00 132 Above high normal 70 -120 (mg/dL) Final Albumin 11/13/2023 06:15:00 3.7 Below low normal 3.8 -5.0 (g/dL) Final AST (Aspartate aminotransferase) 11/13/2023 06:15:00 22 10-50 (U/L) Fin al Alk Phos 11/13/2023 06:15:00 115 35-130 (U/ L) Final Bilirubin, Total 11/13/2023 06:15:00 0.7 <=1 .2 (mg/dL) Final Calcium 11/13/2023 06:15:00 8.9 8.4-10.2 ( mg/dL) Final Protein 11/13/2023 06:15:00 5.7 Below low normal 6.0 -8.3 (g/dL) Final ALT (Alanine aminotransferase) 11/13/2023 06:15:00 21 10-50 (U/L) Zachary casiano Performing Location LABORATORY [place] [address] - [address] [place] [address]
--- OUTSIDE RECORDS SUMMARY | 2024-01-19 23:24 | External Medical Summary ---
Author Name Unknown Address Unknown Organization K01:LABORATORY C - [address] [place] [address] Laboratory Report Ordering Provider Test Date Status DIDIER LOPEZ 12/25/2023 11:42:20 Final Observation Date Value Abnormality Reference (Units ) Status CEA 12/25/2023 11:42:20 243.1 Above high normal <= 5.2 (ng/mL) Final Performing Location [facility] - [address] [place] [address]
--- OUTSIDE RECORDS SUMMARY | 2024-01-19 23:24 | External Medical Summary | Summary of Care ---
Author Name Unknown Organization [facility] Address [address] [place] [address] Phone [phone] Care Team Providers Care Blender Helper Name Role Phone Johanne Berman PA-C Primary Care Provi betina Reason for Visit * Reason Onset Date Comments Other 01/01/2024 Encounter Details Date Type Department Care Team (Late st Contact Info) Description 01/01/2024 Telephone Hematology/Oncology Treatment, [place] [address] [place] [address] Trung Vargas MD [address] [facility] [place] [address] Other Allergies No known active allergiesdocumented as [...] Barba RN - 01/01/2024 3:13 PM EDT [facility]- spoke with Dr. Vargas- can we please request the following records from [facility] in [place] in 2013: Pathology report from surgery done in 2014 Any Next Generation Sequencing (NGS) that was completed on that pathology. documented in this encounter Plan of Treatment Upcoming Encounters Date Type Department Care Team (Late st Contact Info) Description 01/06/2024 8:00 AM EDT Imaging Radiology [facility] 1st [facility], [place] [address] [facility] [place] [address] 01/08/2024 9:15 AM EDT Office [facility] [place] [address] [facility] [place] [phone] Trung Vargas MD 200 [facility] [place] [address] Health Maintenance Due Date Last Done Comments [...] filedocumented as of this encounter Care Teams Blender Helper Relationship Specialty Start Date End Date Johanne Berman PA-C [address] [place] [address] PCP - General Physician Yarn Skeins Examiner 09/23/23 documented as of this encounter
--- OUTSIDE RECORDS SUMMARY | 2024-01-19 23:24 | External Medical Summary | Summary of Care ---
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 [facility] Encounter Details Date Type Department Care Team (Late st Contact Info) Description 12/16/2023 Orders Only Access Center, [place] [address] [place] [address] Ext *DO NOT REMOVE THIS DEPARTMENT* [place] [id number] Request, External Referral Malignant neoplasm of colon (HCC)*; Secondary malignant neoplasm of left lung (HCC); Secondary malignant neoplasm of right lung (HCC) Social History Tobacco Use Types [...] of this encounter Plan of Treatment Scheduled Referrals Name Type Priority Associated Diagnoses Orde r Schedule HEMATOLOGY/ONCOLOGY REFERRAL OP Referral Within 10 days (routine) Malignant neoplasm of colon (HCC) 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) Ordered: 12/16/2023 Health Maintenance Due Date Last Done Comments [...] encounter Visit Diagnoses Diagnosis Malignant neoplasm of colon (HCC)- Primary Malignant neoplasm of colon, unspecified site Secondary malignant neoplasm of left lung (HCC) Secondary malignant neoplasm of lung Secondary malignant neoplasm of right lung (HCC) Secondary malignant neoplasm of lung documented in this encounter Care Teams Director General Relationship Specialty Start Date End Date Johanne Berman PA-C [address] [place] [address] PCP - General Physician Mercerizing Range Feeder 09/23/23 documented as of this encounter
--- OUTSIDE RECORDS SUMMARY | 2024-01-19 23:24 | External Medical Summary ---
Author Name Unknown Address Unknown Organization K09:[facility] [place] [address] Laboratory Report Ordering Provider Test Date Status DIDIER LOPEZ 10/16/2023 14:59:22 Final Observation Date Value Abnormality Reference (Units ) Status WBC, Total 10/16/2023 14:59:22 7.56 4.00-10.8 0 (K/uL) Final RBC 10/16/2023 14:59:22 3.20 4.50-5.25 (M/uL) Final Hemoglobin 10/16/2023 14:59:22 12.6 Below low normal 14 .0-16.8 (g/dL) Final HCT 10/16/2023 14:59:22 35.9 Below low normal 40. 0-48.4 (%) Final MCV 10/16/2023 14:59:22 112.2 82.0-99.5 (fL) Final MCH 10/16/2023 14:59:22 39.4 27.0-34.0 (pg) Final MCHC 10/16/2023 14:59:22 35.1 32.0-36.0 (g/dL) Final RDW 10/16/2023 14:59:22 16.0 11.5-15.5 (%) Final Platelets 10/16/2023 14:59:22 158 140-400 (K /uL) Final MPV 10/16/2023 14:59:22 10.2 6.6-11.1 ( fL) Final Performing Location [facility] [place] [address]
--- OUTSIDE RECORDS SUMMARY | 2024-01-19 23:24 | External Medical Summary ---
Author Name Unknown Address Unknown Organization K01:[facility] - [address] [place] [address] Laboratory Report Ordering Provider Test Date Status DIDIER LOPEZ 12/11/2023 05:55:00 Final Observation Date Value Abnormality Reference (Units ) Status Magnesium 12/11/2023 05:55:00 2.3 1.5-2.6 (m g/dL) Final Performing Location [facility] - [address] [place] [address]
--- OUTSIDE RECORDS SUMMARY | 2024-01-19 23:24 | External Medical Summary ---
Author Name Unknown Address Unknown Organization K0G:[facility]ATORY [facility] [address] - [address] [place] [address] Laboratory Report Ordering Provider Test Date Status TRISHA FREEMAN 10/30/2023 06:49:23 Final Observation Date Value Abnormality Reference (Units ) Status BUN 10/30/2023 06:49:23 26 Above high normal 6-20 (mg/dL) Final Creatinine 10/30/2023 06:49:23 1.1 0.6-1.2 (mg/dL) Final Glomerular filtration rate/1.73 sq M.predicted [Volume Rate/Area] in Serum, Plasma or Blood by Creatinine-based formula (CKD-EPI) 10/30/2023 06:49:23 65 >=60 (mL/min) Final eGFR is calculated based on the CKD-EPI 2020 equation. Sodium 10/30/2023 06:49:23 142 135-146 (m mol/L) Final Potassium 10/30/2023 06:49:23 4.3 3.5-5.1 (m mol/L) Final Cl 10/30/2023 06:49:23 107 98-107 (mm ol/L) Final CO2 10/30/2023 06:49:23 23 22-32 (mmo l/L) Final Anion gap 10/30/2023 06:49:23 12 7-15 (mmol /L) Final Glucose 10/30/2023 06:49:23 119 70-120 (mg /dL) Final Albumin 10/30/2023 06:49:23 3.7 Below low normal 3.8 -5.0 (g/dL) Final AST (Aspartate aminotransferase) 10/30/2023 06:49:23 24 10-50 (U/L) Fin al Alk Phos 10/30/2023 06:49:23 104 35-130 (U/ L) Final Bilirubin, Total 10/30/2023 06:49:23 0.5 <=1 .2 (mg/dL) Final Calcium 10/30/2023 06:49:23 8.7 8.4-10.2 ( mg/dL) Final Protein 10/30/2023 06:49:23 5.4 Below low normal 6.0 -8.3 (g/dL) Final ALT (Alanine aminotransferase) 10/30/2023 06:49:23 20 10-50 (U/L) Zachary casiano Performing Location [facility] [address] [place] [address]
--- OUTSIDE RECORDS SUMMARY | 2024-01-19 23:24 | External Medical Summary | Summary of Care ---
Author Name Unknown Organization [facility] Address [address] [facility] [place] [address] Phone [phone] Care Team Providers Care Gas Transfer Operator Name Role Phone Johanne Berman PA-C Primary Care Provi betina Reason for Visit * Reason Comments Outpatient Testing Encounter Details Date Type Department Care Team (Late st Contact Info) Description 10/16/2023 2:40 PM EDT Laboratory Laboratory [facility] [place] [address] [place] [phone] [place], [facility] [address] [place] [id number] Secondary malignant neoplasm of lung (HCC) Social [...] of lung (HCC) 10/16/2023 2:59 PM EDT CBC WITH WBC DIFFERENTIAL Lab Routine Secondary malignant neoplasm of lung (HCC) 10/16/2023 2:59 PM EDT CEA Lab Routine Secondary malignant neoplasm of lung (HCC) 10/16/2023 2:59 PM EDT CBC Lab Routine Secondary malignant neoplasm of lung (HCC) 10/16/2023 2:59 PM EDT DIFFERENTIAL, AUTOMATED Lab Routine Secondary malignant neoplasm of lung [...] as of this encounter Visit Diagnoses Diagnosis Secondary malignant neoplasm of lung (HCC) Secondary malignant neoplasm of lung documented in this encounter Care Teams Gas Transfer Operator Relationship Specialty Start Date End Date Johanne Berman PA-C [address] [facility] 1 [place] [address] PCP - General Physician Assembler Tractor 09/23/23 documented as of this encounter
--- OUTSIDE RECORDS SUMMARY | 2024-01-19 23:24 | External Medical Summary ---
Author Name Unknown Address Unknown Organization K01:LABORATORY [facility] - [address] [place] [address] Laboratory Report Ordering Provider Test Date Status TRISHA FREEMAN 10/30/2023 06:49:23 Final Observation Date Value Abnormality Reference (Units ) Status Protein, Urine 10/30/2023 06:49:23 73 (mg/d L) Final Performing Location LABORATORY C - [address] [place] [address]
--- OUTSIDE RECORDS SUMMARY | 2024-01-19 23:24 | External Medical Summary | Summary of Care ---
Author Name Unknown Organization [facility] Address [address] [place] [address] Phone [phone] Care Team Providers Care Laborer [employer] Name Role Phone Johanne Berman PA-C Primary Care Provi betina Reason for Visit * Reason Onset Date Comments Other 01/01/2024 Encounter Details Date Type Department Care Team (Late st Contact Info) Description 01/01/2024 Telephone Hematology/Oncology Treatment, [place] [address] [place] [address] Trung Vargas MD [address] [place] [address] Other Allergies No known active allergiesdocumented as [...] Barba RN - 01/01/2024 3:13 PM EDT [facility]- spoke with Dr. Vargas- can we please request the following records from [facility] in [place] in 2013: Pathology report from surgery done in 2014 Any Next Generation Sequencing (NGS) that was completed on that pathology. documented in this encounter Plan of Treatment Upcoming Encounters Date Type Department Care Team (Late st Contact Info) Description 01/06/2024 8:00 AM EDT Imaging Radiology [facility], [place] [address] [facility] [place] [address] 01/08/2024 9:15 AM EDT Office Visit [facility]ematology[facility]Oncology [facility] [place] [address] [facility] [place] [phone] Trung Vargas MD [address] [facility] [place] [address] Health Maintenance Due Date Last Done Comments [...] filedocumented as of this encounter Care Teams Laborer [employer] Relationship Specialty Start Date End Date Johanne Berman PA-C [address] [place] 1 [place] [phone] PCP - General Physician Security Developer 09/23/23 documented as of this encounter
--- OUTSIDE RECORDS SUMMARY | 2024-01-19 23:24 | External Medical Summary ---
Author Name Unknown Address Unknown Organization K09:[facility]ATORY [place] [address] [place] [address] Laboratory Report Ordering Provider Test Date Status DIDIER LOPEZ 12/25/2023 11:42:20 Final Observation Date Value Abnormality Reference (Units ) Status BUN 12/25/2023 11:42:20 17 6-20 (mg/dL) Final Creatinine 12/25/2023 11:42:20 1.2 0.6-1.2 (mg/dL) Final Glomerular filtration rate/1.73 sq M.predicted [Volume Rate/Area] in Serum, Plasma or Blood by Creatinine-based formula (CKD-EPI) 12/25/2023 11:42:20 63 >=60 (mL/min) Final eGFR is calculated based on the CKD-EPI 2020 equation. Sodium 12/25/2023 11:42:20 139 135-146 (m mol/L) Final Potassium 12/25/2023 11:42:20 4.2 3.5-5.1 (m mol/L) Final Cl 12/25/2023 11:42:20 103 98-107 (mm ol/L) Final CO2 12/25/2023 11:42:20 23 22-32 (mmo l/L) Final Anion gap 12/25/2023 11:42:20 13 7-15 (mmol /L) Final Glucose 12/25/2023 11:42:20 169 Above high normal 70 -120 (mg/dL) Final Albumin 12/25/2023 11:42:20 3.6 Below low normal 3.8 -5.0 (g/dL) Final AST (Aspartate aminotransferase) 12/25/2023 11:42:20 26 10-50 (U/L) Fin al Alk Phos 12/25/2023 11:42:20 156 Above high normal 35 -130 (U/L) Final Bilirubin, Total 12/25/2023 11:42:20 0.8 <=1 .2 (mg/dL) Final Calcium 12/25/2023 11:42:20 8.7 8.4-10.2 ( mg/dL) Final Protein 12/25/2023 11:42:20 5.8 Below low normal 6.0 -8.3 (g/dL) Final ALT (Alanine aminotransferase) 12/25/2023 11:42:20 18 10-50 (U/L) Zachary casiano Performing Location [facility] [place] [address] [place] [address]
--- OUTSIDE RECORDS SUMMARY | 2024-01-19 23:24 | External Medical Summary ---
Author Name Unknown Address Unknown Organization K01:LABORATORY [facility] - [address] [place] [address] Laboratory Report Ordering Provider Test Date Status DIDIER LOPEZ 11/13/2023 06:15:00 Final Observation Date Value Abnormality Reference (Units ) Status CEA 11/13/2023 06:15:00 189.1 Above high normal <= 5.2 (ng/mL) Final Performing Location [facility] - [address] [place] [address]
--- OUTSIDE RECORDS SUMMARY | 2024-01-19 23:24 | External Medical Summary ---
Author Name Unknown Address Unknown Organization K01:LABORATORY [facility] - [address] [place] [address] Laboratory Report Ordering Provider Test Date Status DIDIER LOPEZ 11/13/2023 06:15:00 Final Observation Date Value Abnormality Reference (Units ) Status Protein, Urine 11/13/2023 06:15:00 198 (mg/d L) Final Performing Location [facility] - [address] [place] [address]
--- OUTSIDE RECORDS SUMMARY | 2024-01-19 23:24 | External Medical Summary ---
Author Name Unknown Address Unknown Organization K01:[facility] [place] [address] [facility] [place] [address] Laboratory Report Ordering Provider Test Date Status PETETRISHA 11/13/2023 06:15:00 Final Observation Date Value Abnormality Reference (Units ) Status Triglyceride 11/13/2023 06:15:00 105 <=174 ( mg/dL) Final Triglyceride Reference Range s (mg/dL):
<150 Acceptable
150-174 Borderline high
175-499 High
>=500 Very high Cholesterol 11/13/2023 06:15:00 130 <200 (mg /dL) Final Total Cholesterol Reference Ranges (mg/dL):
<200 Desirable
200-239 Borderline high
>=240 High HDL 11/13/2023 06:15:00 44 >39 (mg/dL ) Final HDL Cholesterol Reference Ra nges (mg/dL):
>=60 High (Desirable)
<50 Low (Undesirable) For Females
<40 Low (Undesirable) For Males NON-HDL CHOLESTEROL 11/13/2023 06:15:00 86 <=159 (mg/dL) Final Non-HDL Cholesterol Referenc e Range (mg/dL):
<100 Target level for high risk ASCVD patient
<130 Optimal for general population
130-159 Near optimal for general population
160-189 Borderline High
190-219 High
>=220 Very High LDL, (calculated) 11/13/2023 06:15:00 65 <= 129 (mg/dL) Final LDL Cholesterol Reference Ra nges (mg/dL):
<70 Target level for high risk ASCVD patient
<100 Optimal for general population
100-129 Near optimal for general population
130-159 Borderline high
160-189 High
>=190 Very high Performing Location [facility] [place] [address] [facility] [address]
--- OUTSIDE RECORDS SUMMARY | 2024-01-19 23:24 | External Medical Summary ---
Author Name Unknown Address Unknown Organization K01:LABORATORY [facility] - [address] [place] [address] Laboratory Report Ordering Provider Test Date Status DIDIER LOPEZ 11/27/2023 06:25:00 Final Observation Date Value Abnormality Reference (Units ) Status CEA 11/27/2023 06:25:00 205.1 Above high normal <= 5.2 (ng/mL) Final Performing Location [facility] - [address] [place] [address]
--- OUTSIDE RECORDS SUMMARY | 2024-01-19 23:24 | External Medical Summary ---
Author Name Unknown Address Unknown Organization K09:[facility]AT[facility] [place] [address] Laboratory Report Ordering Provider Test Date Status DIDIER LOPEZ 12/03/2023 13:47:07 Final Observation Date Value Abnormality Reference (Units ) Status BUN 12/03/2023 13:47:07 18 6-20 (mg/dL) Final Creatinine 12/03/2023 13:47:07 0.9 0.6-1.2 (mg/dL) Final Glomerular filtration rate/1.73 sq M.predicted [Volume Rate/Area] in Serum, Plasma or Blood by Creatinine-based formula (CKD-EPI) 12/03/2023 13:47:07 81 >=60 (mL/min) Final eGFR is calculated based on the CKD-EPI 2020 equation. Sodium 12/03/2023 13:47:07 141 135-146 (m mol/L) Final Potassium 12/03/2023 13:47:07 3.7 3.5-5.1 (m mol/L) Final Cl 12/03/2023 13:47:07 103 98-107 (mm ol/L) Final CO2 12/03/2023 13:47:07 25 22-32 (mmo l/L) Final Anion gap 12/03/2023 13:47:07 13 7-15 (mmol /L) Final Glucose 12/03/2023 13:47:07 103 70-120 (mg /dL) Final Calcium 12/03/2023 13:47:07 8.5 8.4-10.2 ( mg/dL) Final Albumin 12/03/2023 13:47:07 3.8 3.8-5.0 (g /dL) Final Phosphate 12/03/2023 13:47:07 3.4 2.5-4.8 (m g/dL) Final Performing Location [facility] [place] [address]
--- OUTSIDE RECORDS SUMMARY | 2024-01-19 23:24 | External Medical Summary ---
Author Name Unknown Address Unknown Organization K09:[facility]AT[facility] [place] [address] Laboratory Report Ordering Provider Test Date Status DIDIER LOPEZ 10/16/2023 14:59:22 Final Observation Date Value Abnormality Reference (Units ) Status SYNC LEUKOCYTES IN BLOOD BY AUTOMATED COUNT 10/16/2023 14:59:22 7.56 4.00-10.80 (K/uL) Final Segs 10/16/2023 14:59:22 74.6 40.0-75.0 (%) Final Lymphs % 10/16/2023 14:59:22 11.5 Below low normal 18.0-42.0 (%) Final Monos 10/16/2023 14:59:22 11.4 Above high normal 1.0-11.0 (%) Final Eosinophils 10/16/2023 14:59:22 2.2 0.0-6.0 (%) Final Basos 10/16/2023 14:59:22 0.3 0.0-2.0 (%) Final Absolute Segs 10/16/2023 14:59:22 5.64 1.80-7.70 (K/uL) Final Lymphs, absolute 10/16/2023 14:59:22 0.87 Below low normal 1.00-4.80 (K/ul) Final Monos, Abs 10/16/2023 14:59:22 0.86 0.00-1.10 (K/uL) Final Eos, Abs 10/16/2023 14:59:22 0.17 0.00-0.70 (K/uL) Final Basos, Abs 10/16/2023 14:59:22 0.02 0.00-0.20 (K/uL) Final Performing Location [facility]ATORY [place] [address]
--- OUTSIDE RECORDS SUMMARY | 2024-01-19 23:24 | External Medical Summary ---
Author Name Unknown Address Unknown Organization K09:[facility]ATORY [place] [address] Laboratory Report Ordering Provider Test Date Status DIDIER LOPEZ 12/25/2023 11:42:20 Final Observation Date Value Abnormality Reference (Units ) Status WBC, Total 12/25/2023 11:42:20 5.65 4.00-10.8 0 (K/uL) Final RBC 12/25/2023 11:42:20 3.24 4.50-5.25 (M/uL) Final Hemoglobin 12/25/2023 11:42:20 12.5 Below low normal 14 .0-16.8 (g/dL) Final HCT 12/25/2023 11:42:20 36.8 Below low normal 40. 0-48.4 (%) Final MCV 12/25/2023 11:42:20 113.6 82.0-99.5 (fL) Final MCH 12/25/2023 11:42:20 38.6 27.0-34.0 (pg) Final MCHC 12/25/2023 11:42:20 34.0 32.0-36.0 (g/dL) Final RDW 12/25/2023 11:42:20 15.7 11.5-15.5 (%) Final Platelets 12/25/2023 11:42:20 164 140-400 (K /uL) Final MPV 12/25/2023 11:42:20 10.3 6.6-11.1 ( fL) Final Performing Location [facility] [place] [address]
--- OUTSIDE RECORDS SUMMARY | 2024-01-19 23:24 | External Medical Summary ---
Author Name Unknown Address Unknown Organization [facility] [address] - [address] [place] [address] Laboratory Report Ordering Provider Test Date Status DIDIER LOPEZ 11/13/2023 06:15:00 Final Observation Date Value Abnormality Reference (Units ) Status SYNC LEUKOCYTES IN BLOOD BY AUTOMATED COUNT 11/13/2023 06:15:00 6.12 4.00-10.80 (K/uL) Final Segs 11/13/2023 06:15:00 64.5 40.0-75.0 (%) Final Lymphs % 11/13/2023 06:15:00 15.4 Below low normal 18.0-42.0 (%) Final Monos 11/13/2023 06:15:00 12.7 Above high normal 1.0-11.0 (%) Final Eosinophils 11/13/2023 06:15:00 6.9 Above high normal 0.0-6.0 (%) Final Basos 11/13/2023 06:15:00 0.5 0.0-2.0 (%) Final Absolute Segs 11/13/2023 06:15:00 3.95 1.80-7.70 (K/uL) Final Lymphs, absolute 11/13/2023 06:15:00 0.94 Below low normal 1.00-4.80 (K/ul) Final Monos, Abs 11/13/2023 06:15:00 0.78 0.00-1.10 (K/uL) Final Eos, Abs 11/13/2023 06:15:00 0.42 0.00-0.70 (K/uL) Final Basos, Abs 11/13/2023 06:15:00 0.03 0.00-0.20 (K/uL) Final Performing Location [facility] - [address] [place] [address]
--- OUTSIDE RECORDS SUMMARY | 2024-01-19 23:24 | External Medical Summary ---
Author Name Unknown Address Unknown Organization K01:LABORATORY [facility] - [address] [place] [address] Laboratory Report Ordering Provider Test Date Status DIDIER LOPEZ 12/03/2023 07:15:50 Final Normal: <150 mg/ g creatinine
High: 150-500 mg/g creatinine
Very High: >500 mg/g creatinine
Nephrotic: >3000 mg/g creatinine Observation Date Value Abnormality Reference (Units ) Status Protein/Creatinine [Ratio] in Urine 12/03/2023 07:15:50 1583 Above high normal <150 (mg/g ) Final Protein, Urine 12/03/2023 07:15:50 95 (mg/dL) Final Creatinine, Urine 12/03/2023 07:15:50 60 (mg/dL) Final Performing Location LABORATORY [facility] - [address] [place] [address]
--- OUTSIDE RECORDS SUMMARY | 2024-01-19 23:24 | External Medical Summary ---
Author Name Unknown Address Unknown Organization K01:[facility] - [address] [place] [address] Laboratory Report Ordering Provider Test Date Status DIDIER LOPEZ 11/27/2023 06:25:00 Final Observation Date Value Abnormality Reference (Units ) Status Magnesium 11/27/2023 06:25:00 2.2 1.5-2.6 (m g/dL) Final Performing Location [facility] - [address] [place] [address]
--- OUTSIDE RECORDS SUMMARY | 2024-01-19 23:24 | External Medical Summary ---
Author Name Unknown Address Unknown Organization K0G:LABORATORY [place] [address] - [address] [place] [address] Laboratory Report Ordering Provider Test Date Status DIDIER LOPEZ 12/11/2023 05:55:00 Final Observation Date Value Abnormality Reference (Units ) Status SYNC LEUKOCYTES IN BLOOD BY AUTOMATED COUNT 12/11/2023 05:55:00 6.03 4.00-10.80 (K/uL) Final Segs 12/11/2023 05:55:00 64.7 40.0-75.0 (%) Final Lymphs % 12/11/2023 05:55:00 16.7 Below low normal 18.0-42.0 (%) Final Monos 12/11/2023 05:55:00 12.6 Above high normal 1.0-11.0 (%) Final Eosinophils 12/11/2023 05:55:00 5.5 0.0-6.0 (%) Final Basos 12/11/2023 05:55:00 0.5 0.0-2.0 (%) Final Absolute Segs 12/11/2023 05:55:00 3.90 1.80-7.70 (K/uL) Final Lymphs, absolute 12/11/2023 05:55:00 1.01 1.00-4.80 (K/ul) Final Monos, Abs 12/11/2023 05:55:00 0.76 0.00-1.10 (K/uL) Final Eos, Abs 12/11/2023 05:55:00 0.33 0.00-0.70 (K/uL) Final Basos, Abs 12/11/2023 05:55:00 0.03 0.00-0.20 (K/uL) Final Performing Location LABORATORY [place] [address] [place] [address]
--- OUTSIDE RECORDS SUMMARY | 2024-01-19 23:24 | External Medical Summary | Summary of Care ---
Author Name Unknown Organization [facility] Address [address] [facility] [place] [address] Phone [phone] Care Team Providers Care Manufacturing Inspector Name Role Phone Johanne Berman PA-C Primary Care Provi betina Encounter Details Date Type Department Care Team (Late st Contact Info) Description 12/11/2023 Orders Only Lab Mobile Phlebotomy [facility] [address] [place] [address] Johanne Berman PA-C [address] [facility] [address] [place] [address] Malignant neoplasm of colon, unspecified part of colon (HCC)* Social History Tobacco Use Types Packs/Day Years [...] Type Priority Associated Diagnoses Orde r Schedule COMPREHENSIVE METABOLIC PANEL Lab Routine Malignant neoplasm of colon, unspecified part of colon (HCC) Expected: 12/11/2023, Expires: 12/10/2024 CBC WITH WBC DIFFERENTIAL Lab Routine Malignant neoplasm of colon, unspecified part of colon (HCC) Expected: 12/11/2023, Expires: 12/10/2024 CEA Lab Routine Malignant neoplasm of colon, unspecified part of colon (HCC) Expected: 12/11/2023, Expires: 12/10/2024 MAGNESIUM Lab Routine Malignant neoplasm of colon, unspecified part of colon (HCC) Expected: 12/11/2023, Expires: 12/10/2024 PROTEIN, RANDOM URINE Lab Routine Malignant neoplasm of colon, unspecified part of colon (HCC) Expected: 12/11/2023, Expires: 12/10/2024 Health Maintenance Due Date Last Done Comments [...] encounter Visit Diagnoses Diagnosis Malignant neoplasm of colon, unspecified part of colon (HCC)- Primary documented in this encounter Care Teams Manufacturing Inspector Relationship Specialty Start Date End Date Johanne Berman PA-C [address] [place] [address] [place] [address] PCP - General Physician Sort Operations Supervisor 09/23/23 documented as of this encounter
--- OUTSIDE RECORDS SUMMARY | 2024-01-19 23:24 | External Medical Summary ---
Author Name Unknown Address Unknown Organization K0G:LABORATORY [place] [address] - [address] [place] [address] Laboratory Report Ordering Provider Test Date Status DIDIER LOPEZ 11/13/2023 06:15:00 Final Observation Date Value Abnormality Reference (Units ) Status WBC, Total 11/13/2023 06:15:00 6.12 4.00-10.8 0 (K/uL) Final RBC 11/13/2023 06:15:00 3.30 4.50-5.25 (M/uL) Final Hemoglobin 11/13/2023 06:15:00 12.6 Below low normal 14 .0-16.8 (g/dL) Final HCT 11/13/2023 06:15:00 37.3 Below low normal 40. 0-48.4 (%) Final MCV 11/13/2023 06:15:00 113.0 82.0-99.5 (fL) Final MCH 11/13/2023 06:15:00 38.2 27.0-34.0 (pg) Final MCHC 11/13/2023 06:15:00 33.8 32.0-36.0 (g/dL) Final RDW 11/13/2023 06:15:00 15.3 11.5-15.5 (%) Final Platelets 11/13/2023 06:15:00 151 140-400 (K /uL) Final MPV 11/13/2023 06:15:00 10.4 6.6-11.1 ( fL) Final Performing Location LABORATORY [place] [address] [place] [address]
--- OUTSIDE RECORDS SUMMARY | 2024-01-19 23:24 | External Medical Summary ---
Author Name Unknown Address Unknown Organization K0G:LABORATORY [facility] [address] - [address] [place] [address] Laboratory Report Ordering Provider Test Date Status DIDIER LOPEZ 11/27/2023 06:25:00 Final Observation Date Value Abnormality Reference (Units ) Status WBC, Total 11/27/2023 06:25:00 6.94 4.00-10.8 0 (K/uL) Final RBC 11/27/2023 06:25:00 3.24 4.50-5.25 (M/uL) Final Hemoglobin 11/27/2023 06:25:00 12.3 Below low normal 14 .0-16.8 (g/dL) Final HCT 11/27/2023 06:25:00 36.7 Below low normal 40. 0-48.4 (%) Final MCV 11/27/2023 06:25:00 113.3 82.0-99.5 (fL) Final MCH 11/27/2023 06:25:00 38.0 27.0-34.0 (pg) Final MCHC 11/27/2023 06:25:00 33.5 32.0-36.0 (g/dL) Final RDW 11/27/2023 06:25:00 15.1 11.5-15.5 (%) Final Platelets 11/27/2023 06:25:00 155 140-400 (K /uL) Final MPV 11/27/2023 06:25:00 10.2 6.6-11.1 ( fL) Final Performing Location LABORATORY [facility] [address] - [address] [place] [address]
--- OUTSIDE RECORDS SUMMARY | 2024-01-19 23:24 | External Medical Summary ---
Author Name Unknown Address Unknown Organization [facility] - [address] [place] [address] Laboratory Report Ordering Provider Test Date Status DIDIER LOPEZ 11/27/2023 06:25:00 Final Observation Date Value Abnormality Reference (Units ) Status SYNC LEUKOCYTES IN BLOOD BY AUTOMATED COUNT 11/27/2023 06:25:00 6.94 4.00-10.80 (K/uL) Final Segs 11/27/2023 06:25:00 69.0 40.0-75.0 (%) Final Lymphs % 11/27/2023 06:25:00 13.4 Below low normal 18.0-42.0 (%) Final Monos 11/27/2023 06:25:00 11.7 Above high normal 1.0-11.0 (%) Final Eosinophils 11/27/2023 06:25:00 5.6 0.0-6.0 (%) Final Basos 11/27/2023 06:25:00 0.3 0.0-2.0 (%) Final Absolute Segs 11/27/2023 06:25:00 4.79 1.80-7.70 (K/uL) Final Lymphs, absolute 11/27/2023 06:25:00 0.93 Below low normal 1.00-4.80 (K/ul) Final Monos, Abs 11/27/2023 06:25:00 0.81 0.00-1.10 (K/uL) Final Eos, Abs 11/27/2023 06:25:00 0.39 0.00-0.70 (K/uL) Final Basos, Abs 11/27/2023 06:25:00 0.02 0.00-0.20 (K/uL) Final Performing Location LABORATORY [facility] [address] [place] [address]
--- OUTSIDE RECORDS SUMMARY | 2024-01-19 23:25 | External Medical Summary ---
Author Name Unknown Address Unknown Organization K01:LABORATORY C - [address] [place] [address] Laboratory Report Ordering Provider Test Date Status DIDIER LOPEZ 09/21/2023 06:35:00 Final Observation Date Value Abnormality Reference (Units ) Status CEA 09/21/2023 06:35:00 148.0 Above high normal <= 5.2 (ng/mL) Final Performing Location [facility] - [address] [place] [address]
--- OUTSIDE RECORDS SUMMARY | 2024-01-19 23:25 | External Medical Summary ---
Author Name Unknown Address Unknown Organization K0G:LABORATORY [facility] [address] - [address] [place] [id number] Laboratory Report Ordering Provider Test Date Status TRISHA FREEMAN 09/04/2023 06:15:00 Final Observation Date Value Abnormality Reference (Units ) Status WBC, Total 09/04/2023 06:15:00 5.94 4.00-10.8 0 (K/uL) Final RBC 09/04/2023 06:15:00 3.01 4.50-5.25 (M/uL) Final Hemoglobin 09/04/2023 06:15:00 11.5 Below low normal 14 .0-16.8 (g/dL) Final HCT 09/04/2023 06:15:00 34.8 Below low normal 40. 0-48.4 (%) Final MCV 09/04/2023 06:15:00 115.6 82.0-99.5 (fL) Final MCH 09/04/2023 06:15:00 38.2 27.0-34.0 (pg) Final MCHC 09/04/2023 06:15:00 33.0 32.0-36.0 (g/dL) Final RDW 09/04/2023 06:15:00 15.7 11.5-15.5 (%) Final Platelets 09/04/2023 06:15:00 128 Below low normal 140 -400 (K/uL) Final MPV 09/04/2023 06:15:00 10.7 6.6-11.1 ( fL) Final Performing Location LABORATORY [facility] [address] 0 - [address] [place] [address]
--- OUTSIDE RECORDS SUMMARY | 2024-01-19 23:25 | External Medical Summary | Summary of Care ---
Author Name Unknown Organization [facility] Address [address] [facility] [address] Phone [phone] Care Team Providers Care Track Man Name Role Phone Johanne Berman PA-C Primary Care Provi betina Encounter Details Date Type Department Care Team (Late st Contact Info) Description 10/02/2023 Orders Only Lab [facility] [phone] Johanne Berman PA-C [address] [facility] 1 [place] [address] Malignant neoplasm metastatic to lung, unspecified laterality (HCC)* Social History Tobacco Use Types Packs/Day [...] r Schedule PROTEIN, RANDOM URINE Lab Routine Malignant neoplasm metastatic to lung, unspecified laterality (HCC) Expected: 10/02/2023, Expires: 10/01/2024 Health Maintenance Due Date Last Done Comments Depression Screening 1952 DTaP,Tdap,and Td Vaccines (1 - Tdap) 1958 Zoster Vaccines (1 of 2) 1989 Pneumococcal Vaccine: 65+ Ye ars (1 of 1 - PCV) 2004 COVID-19 Vaccine ( - 2022-2 4 season) 2022 Influenza Vaccine (FLU shot) (Season Ended) 2023 GARDASIL-HPV IMMUNIZATION SERIES Aged Out No longer eligible based on patient's age to complete this topic Hepatitis B Aged Out No longer eligi ble based on patient's age to complete this topic MENINGOCOCCAL (MENACTRA/MENVEO) Aged Out No longer eligible based on patient's age to complete this topic documented as of this encounter Medical Devices Not on filedocumented as of this encounter Visit Diagnoses Diagnosis Malignant neoplasm metastatic to lung, unspecified laterality (HCC)- Primary documented in this encounter Care Teams Track Man Relationship Specialty Start Date End Date Johanne Berman PA-C [address] [facility] 1 [place] [address] PCP - General Physician Tractor Technician 09/23/23 documented as of this encounter
--- OUTSIDE RECORDS SUMMARY | 2024-01-19 23:25 | External Medical Summary ---
Author Name Unknown Address Unknown Organization K0G:LABORATORY [facility] [address] - [address] [place] [address] Laboratory Report Ordering Provider Test Date Status DIDIER LOPEZ 09/21/2023 06:35:00 Final Observation Date Value Abnormality Reference (Units ) Status BUN 09/21/2023 06:35:00 16 6-20 (mg/dL) Final Creatinine 09/21/2023 06:35:00 1.1 0.6-1.2 (mg/dL) Final Glomerular filtration rate/1.73 sq M.predicted [Volume Rate/Area] in Serum, Plasma or Blood by Creatinine-based formula (CKD-EPI) 09/21/2023 06:35:00 68 >=60 (mL/min) Final eGFR is calculated based on the CKD-EPI 2020 equation Sodium 09/21/2023 06:35:00 140 135-146 (m mol/L) Final Potassium 09/21/2023 06:35:00 4.1 3.5-5.1 (m mol/L) Final Cl 09/21/2023 06:35:00 103 98-107 (mm ol/L) Final CO2 09/21/2023 06:35:00 26 22-32 (mmo l/L) Final Anion gap 09/21/2023 06:35:00 11 7-15 (mmol /L) Final Glucose 09/21/2023 06:35:00 167 Above high normal 70 -120 (mg/dL) Final Albumin 09/21/2023 06:35:00 4.0 3.8-5.0 (g /dL) Final AST (Aspartate aminotransferase) 09/21/2023 06:35:00 23 10-50 (U/L) Fin al Alk Phos 09/21/2023 06:35:00 125 35-130 (U/ L) Final Bilirubin, Total 09/21/2023 06:35:00 0.8 <=1 .2 (mg/dL) Final Calcium 09/21/2023 06:35:00 9.0 8.4-10.2 ( mg/dL) Final Protein 09/21/2023 06:35:00 6.1 6.0-8.3 (g /dL) Final ALT (Alanine aminotransferase) 09/21/2023 06:35:00 17 10-50 (U/L) Zachary casiano Performing Location LABORATORY [place] [address] - [address] [facility] [address]
--- OUTSIDE RECORDS SUMMARY | 2024-01-19 23:25 | External Medical Summary ---
Author Name Unknown Address Unknown Organization K01:LABORATORY C - [address] [place] [address] Laboratory Report Ordering Provider Test Date Status DIDIER LOPEZ 10/02/2023 06:00:00 Final Observation Date Value Abnormality Reference (Units ) Status CEA 10/02/2023 06:00:00 146.4 Above high normal <= 5.2 (ng/mL) Final Performing Location [facility] - [address] [place] [address]
--- OUTSIDE RECORDS SUMMARY | 2024-01-19 23:25 | External Medical Summary | Summary of Care ---
Author Name Unknown Organization [facility] Address [address] [facility] [address] Phone [phone] Care Team Providers Care Director Hardware Name Role Phone Unavailable Primary Care Provider Unavailabl e Encounter Details Date Type Department Care Team (Late st Contact Info) Description 09/21/2023 Orders Only Lab Mobile Phlebotomy [facility] [address] [place] [address] Johanne Berman [address] [place] [address] Malignant neoplasm of colon, unspecified part of colon (HCC)* Social History Tobacco Use Types Packs/Day Years Used Date Smoking Tobacco: Never Assessed Sex and Gender Information Value Date Recorded Sex Assigned at Not on file Gender Identity Not on file Sexual Orientation Not on file documented as of this encounter Plan of Treatment Scheduled Orders Name Type Priority Associated Diagnoses Orde r Schedule COMPREHENSIVE METABOLIC PANEL Lab STAT Malignant neoplasm of colon, unspecified part of colon (HCC) Expected: 09/21/2023, Expires: 09/20/2024 CBC WITH WBC DIFFERENTIAL Lab STAT Malignant neoplasm of colon, unspecified part of colon (HCC) Expected: 09/21/2023, Expires: 09/20/2024 PROTEIN, RANDOM URINE Lab Routine Malignant neoplasm of colon, unspecified part of colon (HCC) Expected: 09/21/2023, Expires: 09/20/2024 Health Maintenance Due Date Last Done Comments [...]
--- OUTSIDE RECORDS SUMMARY | 2024-01-19 23:25 | External Medical Summary ---
Author Name Unknown Address Unknown Organization K0G:LABORATORY [facility] [address] - [address] [place] [address] Laboratory Report Ordering Provider Test Date Status DIDIER LOPEZ 10/02/2023 06:00:00 Final Observation Date Value Abnormality Reference (Units ) Status BUN 10/02/2023 06:00:00 12 6-20 (mg/dL) Final Creatinine 10/02/2023 06:00:00 1.0 0.6-1.2 (mg/dL) Final Glomerular filtration rate/1.73 sq M.predicted [Volume Rate/Area] in Serum, Plasma or Blood by Creatinine-based formula (CKD-EPI) 10/02/2023 06:00:00 77 >=60 (mL/min) Final eGFR is calculated based on the CKD-EPI 2020 equation Sodium 10/02/2023 06:00:00 141 135-146 (m mol/L) Final Potassium 10/02/2023 06:00:00 4.0 3.5-5.1 (m mol/L) Final Cl 10/02/2023 06:00:00 104 98-107 (mm ol/L) Final CO2 10/02/2023 06:00:00 26 22-32 (mmo l/L) Final Anion gap 10/02/2023 06:00:00 11 7-15 (mmol /L) Final Glucose 10/02/2023 06:00:00 132 Above high normal 70 -120 (mg/dL) Final Albumin 10/02/2023 06:00:00 3.7 Below low normal 3.8 -5.0 (g/dL) Final AST (Aspartate aminotransferase) 10/02/2023 06:00:00 20 10-50 (U/L) Fin al Alk Phos 10/02/2023 06:00:00 107 35-130 (U/ L) Final Bilirubin, Total 10/02/2023 06:00:00 0.6 <=1 .2 (mg/dL) Final Calcium 10/02/2023 06:00:00 9.1 8.4-10.2 ( mg/dL) Final Protein 10/02/2023 06:00:00 5.4 Below low normal 6.0 -8.3 (g/dL) Final ALT (Alanine aminotransferase) 10/02/2023 06:00:00 18 10-50 (U/L) Zachary casiano Performing [facility] [address] - [address] [place] [address]
--- OUTSIDE RECORDS SUMMARY | 2024-01-19 23:25 | External Medical Summary | Summary of Care ---
Author Name Unknown Organization [facility] Address [address] [facility] [place] [address] Phone [phone] Care Team Providers Care Certified Phlebotomy Technician Name Role Phone Unavailable Primary Care Provider Unavailabl e Encounter Details Date Type Department Care Team (Late st Contact Info) Description 09/21/2023 Orders Only Lab Mobile Phlebotomy [facility] [address] [place] [address] Johanne Berman [address] [place] [address] Malignant neoplasm of colon (HCC)*; Secondary malignant neoplasm of lung (HCC) Social [...] /Time CEA Lab Routine Malignant neoplasm of colon (HCC) Secondary malignant neoplasm of lung (HCC) 09/21/2023 6:35 AM EDT Scheduled Orders Name Type Priority Associated Diagnoses Orde r Schedule CEA Lab Routine Malignant neoplasm of colon (HCC) Secondary malignant neoplasm of lung (HCC) Expected: 09/21/2023, Expires: 09/20/2024 Health Maintenance Due Date Last Done Comments Depression Screening 1952 DTaP,Tdap,and Td Vaccines (1 - Tdap) 1958 Zoster Vaccines (1 of 2) 1989 Pneumococcal Vaccine: 65+ Ye ars (1 of 1 - PCV) 2004 COVID-19 Vaccine (2022-2 4 season) 2022 Influenza Vaccine (FLU shot) [...] colon, unspecified site Secondary malignant neoplasm of lung (HCC) Secondary malignant neoplasm of lung documented in this encounter
--- OUTSIDE RECORDS SUMMARY | 2024-01-19 23:25 | External Medical Summary ---
Author Name Unknown Address Unknown Organization K0G:LABORATORY [place] [address] - [address] [place] [address] Laboratory Report Ordering Provider Test Date Status TRISHA FREEMAN 09/04/2023 06:15:00 Final Observation Date Value Abnormality Reference (Units ) Status SYNC LEUKOCYTES IN BLOOD BY AUTOMATED COUNT 09/04/2023 06:15:00 5.94 4.00-10.80 (K/uL) Final Segs 09/04/2023 06:15:00 63.5 40.0-75.0 (%) Final Lymphs % 09/04/2023 06:15:00 17.0 Below low normal 18.0-42.0 (%) Final Monos 09/04/2023 06:15:00 15.0 Above high normal 1.0-11.0 (%) Final Eosinophils 09/04/2023 06:15:00 4.0 0.0-6.0 (%) Final Basos 09/04/2023 06:15:00 0.5 0.0-2.0 (%) Final Absolute Segs 09/04/2023 06:15:00 3.77 1.80-7.70 (K/uL) Final Lymphs, absolute 09/04/2023 06:15:00 1.01 1.00-4.80 (K/ul) Final Monos, Abs 09/04/2023 06:15:00 0.89 0.00-1.10 (K/uL) Final Eos, Abs 09/04/2023 06:15:00 0.24 0.00-0.70 (K/uL) Final Basos, Abs 09/04/2023 06:15:00 0.03 0.00-0.20 (K/uL) Final Performing Location LABORATORY [place] [address] - [address] [place] [address]
--- OUTSIDE RECORDS SUMMARY | 2024-01-19 23:25 | External Medical Summary ---
Author Name Unknown Address Unknown Organization K0G:LABORATORY [facility] [address] - [address] [place] [address] Laboratory Report Ordering Provider Test Date Status DIDIER LOPEZ 10/02/2023 06:00:00 Final Observation Date Value Abnormality Reference (Units ) Status WBC, Total 10/02/2023 06:00:00 6.45 4.00-10.8 0 (K/uL) Final RBC 10/02/2023 06:00:00 3.29 4.50-5.25 (M/uL) Final Hemoglobin 10/02/2023 06:00:00 12.5 Below low normal 14 .0-16.8 (g/dL) Final HCT 10/02/2023 06:00:00 37.4 Below low normal 40. 0-48.4 (%) Final MCV 10/02/2023 06:00:00 113.7 82.0-99.5 (fL) Final MCH 10/02/2023 06:00:00 38.0 27.0-34.0 (pg) Final MCHC 10/02/2023 06:00:00 33.4 32.0-36.0 (g/dL) Final RDW 10/02/2023 06:00:00 15.4 11.5-15.5 (%) Final Platelets 10/02/2023 06:00:00 140 140-400 (K /uL) Final MPV 10/02/2023 06:00:00 10.6 6.6-11.1 ( fL) Final Performing Location LABORATORY [facility] [address] - [address] [place] [address]
--- OUTSIDE RECORDS SUMMARY | 2024-01-19 23:25 | External Medical Summary ---
Author Name Unknown Address Unknown Organization K0G:LABORATORY [facility] [address] - [address] [place] [address] Laboratory Report Ordering Provider Test Date Status TRISHA FREEMAN 09/04/2023 06:15:00 Final Observation Date Value Abnormality Reference (Units ) Status BUN 09/04/2023 06:15:00 24 Above high normal 6-20 (mg/dL) Final Creatinine 09/04/2023 06:15:00 1.1 0.6-1.2 (mg/dL) Final Glomerular filtration rate/1.73 sq M.predicted [Volume Rate/Area] in Serum, Plasma or Blood by Creatinine-based formula (CKD-EPI) 09/04/2023 06:15:00 63 >=60 (mL/min) Final eGFR is calculated based on the CKD-EPI 2020 equation Sodium 09/04/2023 06:15:00 142 135-146 (m mol/L) Final Potassium 09/04/2023 06:15:00 4.1 3.5-5.1 (m mol/L) Final Cl 09/04/2023 06:15:00 108 Above high normal 98 -107 (mmol/L) Final CO2 09/04/2023 06:15:00 22 22-32 (mmo l/L) Final Anion gap 09/04/2023 06:15:00 12 7-15 (mmol /L) Final Glucose 09/04/2023 06:15:00 166 Above high normal 70 -120 (mg/dL) Final Albumin 09/04/2023 06:15:00 3.5 Below low normal 3.8 -5.0 (g/dL) Final AST (Aspartate aminotransferase) 09/04/2023 06:15:00 22 10-50 (U/L) Fin al Alk Phos 09/04/2023 06:15:00 108 35-130 (U/ L) Final Bilirubin, Total 09/04/2023 06:15:00 0.5 <=1 .2 (mg/dL) Final Calcium 09/04/2023 06:15:00 8.6 8.4-10.2 ( mg/dL) Final Protein 09/04/2023 06:15:00 5.2 Below low normal 6.0 -8.3 (g/dL) Final ALT (Alanine aminotransferase) 09/04/2023 06:15:00 20 10-50 (U/L) Zachary casiano Performing Location LABORATORY [place] [address] [facility] [address]
--- OUTSIDE RECORDS SUMMARY | 2024-01-19 23:25 | External Medical Summary ---
Author Name Unknown Address Unknown Organization K0G:LABORATORY [place] [address] - [address] [place] [address] Laboratory Report Ordering Provider Test Date Status DIDIER LOPEZ 09/21/2023 06:35:00 Final Observation Date Value Abnormality Reference (Units ) Status SYNC LEUKOCYTES IN BLOOD BY AUTOMATED COUNT 09/21/2023 06:35:00 7.93 4.00-10.80 (K/uL) Final Segs 09/21/2023 06:35:00 69.3 40.0-75.0 (%) Final Lymphs % 09/21/2023 06:35:00 16.4 Below low normal 18.0-42.0 (%) Final Monos 09/21/2023 06:35:00 9.6 1.0-11.0 (%) Final Eosinophils 09/21/2023 06:35:00 4.3 0.0-6.0 (%) Final Basos 09/21/2023 06:35:00 0.4 0.0-2.0 (%) Final Absolute Segs 09/21/2023 06:35:00 5.50 1.80-7.70 (K/uL) Final Lymphs, absolute 09/21/2023 06:35:00 1.30 1.00-4.80 (K/ul) Final Monos, Abs 09/21/2023 06:35:00 0.76 0.00-1.10 (K/uL) Final Eos, Abs 09/21/2023 06:35:00 0.34 0.00-0.70 (K/uL) Final Basos, Abs 09/21/2023 06:35:00 0.03 0.00-0.20 (K/uL) Final Per[facility] [address] - [address] [place] [address]
--- OUTSIDE RECORDS SUMMARY | 2024-01-19 23:25 | External Medical Summary ---
Author Name Unknown Address Unknown Organization K01:LABORATORY [facility] - [address] [place] [address] Laboratory Report Ordering Provider Test Date Status DIDIER LOPEZ 10/02/2023 06:00:00 Final Observation Date Value Abnormality Reference (Units ) Status Protein, Urine 10/02/2023 06:00:00 107 (mg/d L) Final Performing Location [facility] - [address] [place] [address]
--- OUTSIDE RECORDS SUMMARY | 2024-01-19 23:25 | External Medical Summary ---
Author Name Unknown Address Unknown Organization K0G:LABORATORY [facility] [address] - [address] [place] [address] Laboratory Report Ordering Provider Test Date Status DIDIER LOPEZ 09/21/2023 06:35:00 Final Observation Date Value Abnormality Reference (Units ) Status WBC, Total 09/21/2023 06:35:00 7.93 4.00-10.8 0 (K/uL) Final RBC 09/21/2023 06:35:00 3.52 4.50-5.25 (M/uL) Final Hemoglobin 09/21/2023 06:35:00 13.3 Below low normal 14 .0-16.8 (g/dL) Final HCT 09/21/2023 06:35:00 39.6 Below low normal 40. 0-48.4 (%) Final MCV 09/21/2023 06:35:00 112.5 82.0-99.5 (fL) Final MCH 09/21/2023 06:35:00 37.8 27.0-34.0 (pg) Final MCHC 09/21/2023 06:35:00 33.6 32.0-36.0 (g/dL) Final RDW 09/21/2023 06:35:00 15.5 11.5-15.5 (%) Final Platelets 09/21/2023 06:35:00 168 140-400 (K /uL) Final MPV 09/21/2023 06:35:00 10.8 6.6-11.1 ( fL) Final Performing Location LABORATORY [facility] [address] - [address] [place] [address]
--- OUTSIDE RECORDS SUMMARY | 2024-01-19 23:25 | External Medical Summary ---
Author Name Unknown Address Unknown Organization K01:LABORATORY [facility] - [address] [place] [address] Laboratory Report Ordering Provider Test Date Status DIDIER LOPEZ 09/21/2023 06:35:00 Final Observation Date Value Abnormality Reference (Units ) Status Protein, Urine 09/21/2023 06:35:00 77 (mg/d L) Final Performing Location LAB[facility] - [address] [place] [address]
--- OUTSIDE RECORDS SUMMARY | 2024-01-19 23:25 | External Medical Summary ---
Author Name Unknown Address Unknown Organization K0G[facility] [address] - [address] [place] [address] Laboratory Report Ordering Provider Test Date Status DIDIER LOPEZ 10/02/2023 06:00:00 Final Observation Date Value Abnormality Reference (Units ) Status SYNC LEUKOCYTES IN BLOOD BY AUTOMATED COUNT 10/02/2023 06:00:00 6.45 4.00-10.80 (K/uL) Final Segs 10/02/2023 06:00:00 66.3 40.0-75.0 (%) Final Lymphs % 10/02/2023 06:00:00 14.7 Below low normal 18.0-42.0 (%) Final Monos 10/02/2023 06:00:00 13.8 Above high normal 1.0-11.0 (%) Final Eosinophils 10/02/2023 06:00:00 4.7 0.0-6.0 (%) Final Basos 10/02/2023 06:00:00 0.5 0.0-2.0 (%) Final Absolute Segs 10/02/2023 06:00:00 4.28 1.80-7.70 (K/uL) Final Lymphs, absolute 10/02/2023 06:00:00 0.95 Below low normal 1.00-4.80 (K/ul) Final Monos, Abs 10/02/2023 06:00:00 0.89 0.00-1.10 (K/uL) Final Eos, Abs 10/02/2023 06:00:00 0.30 0.00-0.70 (K/uL) Final Basos, Abs 10/02/2023 06:00:00 0.03 0.00-0.20 (K/uL) Final Performing Location LABORATORY [facility] [address] - [address] [place] [address]
[2024-01-20 01:10] VITALS: TEMP 98.8
[2024-01-20 04:51] LABS: Basophils # (auto) 0.03 K/uL (0.00-0.20); Basophils % (auto) 0.4 %; Eosinophils # (auto) 0.18 K/uL (0.00-0.50); Eosinophils % (auto) 2.3 %; Hematocrit (blood only) 36.1 % (42.0-52.0); Hemoglobin 12.4 g/dl (14.0-18.0); Immature Granulocytes # (auto) 0.05 K/uL (0.01-0.20); Immature Granulocytes % (auto) 0.6 %; Lymphocytes # (auto) 0.87 K/uL (1.20-3.40); Mean Corpuscular Hgb Conc 34.3 g/dL (32.0-36.0); Mean Corpuscular Volume 110.7 fL (80.0-100.0); Mean Platelet Volume 10.1 fL (9.4-12.4); Monocytes # (auto) 0.86 K/uL (0.11-0.59); Monocytes % (auto) 10.8 %; Neutrophils # (auto) 5.94 K/uL (1.40-6.50); Neutrophils % (auto) 74.9 %; Platelet Count 187 K/uL (130-400); RDW Coefficient of Variation 15.7 % (11.5-14.5); RDW Standard Deviation 63.5 fL (36.4-46.3); Red Blood Count 3.26 M/uL (4.70-6.10); White Blood Count 7.93 K/ul (4.8-10.8)
[2024-01-20 04:59] LABS: BUN Creatinine Ratio 19.4 (10-20); Calcium 8.6 mg/dl (8.6-10.3); Creatinine Clr Calc Pharmacy 58.9 ml/min; Magnesium 1.8 mg/dl (1.7-2.4); Potassium 4.1 mmol/L (3.5-5.1)
[2024-01-20 05:56] LABS: Macrocytosis Present
[2024-01-20] MEDS: CEFEPIME 2000MG 2,000 MG/20 ML SYR IV SCH (06:39)
[2024-01-20] MEDS: CHOLECALCIFEROL 25 MCG (1000 UNITS) TAB PO SCH (08:34)
[2024-01-20] MEDS: allopurinoL 300 MG TAB PO SCH (08:34)
[2024-01-20] MEDS: LOSARTAN POTASSIUM 50 MG TAB PO SCH (08:35)
--- OUTSIDE RECORDS SUMMARY | 2024-01-20 09:38 | External Medical Summary | Summary of Care ---
Author Name Unknown Organization [facility] Address [address] [facility] [address] Phone [phone] Care Team Providers Care Phlebotomy Coordinator Name Role Phone Johanne Berman PA-C Primary Care Provi betina Reason for Visit * Reason Onset Date Comments Advice 01/19/2024 Sam Encounter Details Date Type Department Care Team (Late st Contact Info) Description 01/19/2024 Telephone Hematology/Oncology [facility] State Mia Andres [address] [place] [id number] Trung Vargas MD 200 [facility] [place] [id number] Advice (aSm) Allergies No known active allergiesdocumented as [...] Telephone Encounter - Marissa Garrido RN - 01/19/2024 1:32 PM EDT Called and spoke to Cinthia. She states that patient had a chest xray which shows bilateral pneumonia. Per the advise of [facility], she arranged for patients transportation to take him to [facility] ER instead of the endocrinology appt it was originally scheduled for because provider at [facility] feels he needs IV antibiotics. Advised her that we will contact [facility] ER to make them aware of patients recent treatment and that he is a patient of Dr Mendoza. Asked that she update us when patient is discharged from the hospital. She verbalized understanding. Called [facility] ER and spoke to Rafaela to make aware patient is coming. * Telephone Encounter - Gabriela Atkins OSA - 01/19/2024 12:40 PM EDT Daughter in law Cinthia is calling to speak with a nurse. Patient just started chemo with DR Vargas. He is in [facility], he has a bad cough and they did an xray. They told her he has pneumonia. Please call her back [phone] documented in this encounter Plan of Treatment Upcoming Encounters Date Type Department Care Team (Late st Contact Info) Description 01/26/2024 8:45 AM EDT Office Visit Hematology/Oncology [place] M[place] [address] [place] [phone] Trung Vargas MD 200 [facility] [place] [id number] 01/26/2024 9:15 AM EDT Hem/Onc Treatment Hematology/Oncology Treatment, [place] [address] [place] [phone] Mckenna, Chair 1 Hem Onc Scenery 200 [facility] [place], [place] [address] 02/09/2024 8:00 AM EST Hem/Onc Treatment Hematology/Oncology Treatment, [place] [address] [facility], [place] [phone] Mckenna, Chair 1 Hem Onc [facility] 200 [facility] [place], [place] [address] 02/23/2024 8:00 AM EST Office Visit Hematology/Oncology [facility] 200 [facility], [place] [phone] Vigrinia Camarena CRNP [address] [place], [place] [address] [address] 02/23/2024 8:30 AM EST Hem/Onc Treatment Hematology/Oncology Treatment, [place] [address] [facility], [place] [phone] Mckenna, Chair 11 Hem Onc Scenery 200 [facility] [place] [address] Health Maintenance Due Date Last Done Comments [...] filedocumented as of this encounter Care Teams Phlebotomy Coordinator Relationship Specialty Start Date End Date Johanne Berman PA-C [address] [place] [address] [place] [address] PCP - General Physician Kinesiotherapist 09/23/23 documented as of this encounter
--- OUTSIDE RECORDS SUMMARY | 2024-01-20 09:38 | External Medical Summary | Summary of Care ---
Author Name Unknown Organization [facility] Address [address] [place] [address] Phone [phone] Care Team Providers Care Business Ethics Professor Name Role Phone Unavailable Primary Care Provider Unavailabl e Encounter Details Date Type Department Care Team (Latest Contact Info) Description 08/10/2023 11:45 AM EDT - 08/10/2023 11:59 PM EDT Hospital Encounter Radiology Film File [address] [place], [place] [id number] Discharge Disposition: Home - Self Care Allergies No known active allergiesdocumented as of this encounter (statuses as of 01/19/2024) Medications No known medicationsdocumented as of this [...] Office Visit Hematology/Oncology [facility] Mckenna Roy 200 [facility] [place] [phone] Trung Vargas MD [address] [place] [address] 01/26/2024 9:15 AM EDT Hem/Onc Treatment Hematology/Oncology Treatment [address] [place] [phone] Mckenna, Chair 1 Hem Onc Scenery [facility] [address] [place] [address] 02/09/2024 8:00 AM EST Hem/Onc Treatment Hematology/Oncology [address] [phone] Mckenna, Chair 1 Hem Onc Scenery [facility] [place] [address] 02/23/2024 8:00 AM EST Office Visit Hematology/Oncology [facility] Mckenna Roy [address] [place] [phone] Virginia Camarena CRNP 400 [facility] [place] [address] 02/23/2024 8:30 AM EST Hem/Onc Treatment Hematology/Oncology Treatment, [address] [place] [phone] Mckenna, Chair 11 Hem Onc Scenery [address] [place] [address] Health Maintenance Due Date Last Done Comments [...] interpreted or resulted by a [facility] or [facility] contracted radiologist. Trung Vargas MD RAD CT documented in this encounter
--- OUTSIDE RECORDS SUMMARY | 2024-01-20 09:38 | External Medical Summary | Summary of Care ---
Author Name Unknown Organization [facility] Address [address] [place] [address] Phone [phone] Care Team Providers Care Manager Surgical Name Role Phone Johanne Berman PA-C Primary Care Provi betina Encounter Details Date Type Department Care Team (Latest Contact Info) Description 11/02/2023 9:05 AM EDT - 11/02/2023 11:59 PM EDT Hospital Encounter Radiology Film File [address], [place] [id number] Discharge Disposition: Home - Self Care Allergies [...] 01/26/2024 8:45 AM EDT Office Visit Hematology/Oncology [facility] [place] [address] [place] [phone] Trung Vargas MD [address] [place] [address] 01/26/2024 9:15 AM EDT Hem/Onc Treatment Hematology/Oncology Treatment [place] [address] [place] [address] Mckenna, Chair 1 Hem Onc Scenery [address] [place] [address] 02/09/2024 8:00 AM EST Hem/Onc Treatment Hematology/Oncology Treatment [address] [place] [address] Mckenna, Chair 1 Hem Onc Scenery [address] [place] [address] 02/23/2024 8:00 AM EST Office Visit Hematology/Oncology [facility] [place] [address] [place] [address] Virginia Camarena CRNP [address] [place] [address] [place] [id number] 02/23/2024 8:30 AM EST Hem/Onc Treatment Hematology/Oncology Treatment [address] [place] [address] Mckenna, Chair 11 Hem Onc Scenery [address] [place] [address] Health Maintenance Due Date Last Done Comments [...] interpreted or resulted by a [facility] or [employer] contracted radiologist. Trung Vargas MD RAD CT documented in this encounter Care Teams Manager Surgical Relationship Specialty Start Date End Date Johanne Berman PA-C Caitlin De La Rosa Si[address] 1 [place] Sun [id number] PCP - General Physician Cream Maker 09/23/23 documented as of this encounter
--- OUTSIDE RECORDS SUMMARY | 2024-01-20 09:38 | External Medical Summary | Summary of Care ---
Author Name Unknown Organization [facility] Address [address] [place] [address] Phone [phone] Care Team Providers Care Element Burner Name Role Phone Johanne Berman PA-C Primary Care Provi betina Encounter Details Date Type Department Care Team (Latest Contact Info) Description 11/02/2023 9:00 AM EDT - 11/02/2023 9:04 AM EDT Hospital Encounter Radiology Film File [address] [place], [place] [phone] Discharge Disposition: Home - Self Care Allergies [...] 01/26/2024 8:45 AM EDT Office Visit Hematology[facility]Oncology [facility] [place] [address] [place] [phone] Trung Vargas MD [address] [place] [address] 01/26/2024 9:15 AM EDT Hem/Onc Treatment Hematology/Oncology Treatment [place] [address] [place] [address] Mckenna, Chair 1 Hem Onc Scenery [address] [place] [address] 02/09/2024 8:00 AM EST Hem/Onc Treatment Hematology/Oncology Treatment [address] [place] [address] Mckenna, Chair 1 Hem Onc Scenery [address] [place] [address] 02/23/2024 8:00 AM EST Office Visit Hematology/Oncology [facility] [place] [address] [place] [address] Virginia Camarena CRNP [address] [place] [address] [place] [id number] 02/23/2024 8:30 AM EST Hem/Onc Treatment Hematology/Oncology Treatment [address] [place] [address] Mckenna, Chair 11 Hem Onc Scenery [address] [place] [address] Health Maintenance Due Date Last Done Comments [...] interpreted or resulted by a [facility] or [employer] contracted radiologist. Trung Vargas MD RAD CT documented in this encounter Care Teams Element Burner Relationship Specialty Start Date End Date Johanne Berman PA-C Caitlin De La Rosa Si[address] 1 [place] Sun [address] PCP - General Physician Skin Piler 09/23/23 documented as of this encounter
--- OUTSIDE RECORDS SUMMARY | 2024-01-20 09:38 | External Medical Summary | Summary of Care ---
Author Name Unknown Organization [facility] Address [address] [place] [address] Phone [phone] Care Team Providers Care Die Welder Name Role Phone Unavailable Primary Care Provider Unavailabl e Encounter Details Date Type Department Care Team (Latest Contact Info) Description 08/10/2023 11:40 AM EDT - 08/10/2023 11:44 AM EDT Hospital Encounter Radiology Film File [address] [place], [place] [phone] Discharge Disposition: Home - Self Care Allergies [...] 01/26/2024 8:45 AM EDT Office Visit Hematology/Oncology [facility] [place] [address] [facility] [place] [place] [place] [phone] Trung Vargas MD [address] [place] [address] 01/26/2024 9:15 AM EDT Hem/Onc Treatment Hematology/Oncology Treatment [address] [place] [phone] Mckenna, Chair 1 Hem Onc Scenery [facility] [address] [place] [address] 02/09/2024 8:00 AM EST Hem/Onc Treatment Hematology/Oncology [address] [phone] Mckenna, Chair 1 Hem Onc Scenery [facility] [place] [address] 02/23/2024 8:00 AM EST Office Visit Hematology/Oncology [facility] Mckenna [place] [address] [place] [address] Virginia Camarena CRNP [address] [facility] [place] [address] 02/23/2024 8:30 AM EST Hem/Onc Treatment Hematology/Oncology Treatment, [address] [place] [phone] Mckenna, Chair 11 Hem Onc Scenery [address] [place] [address] Health Maintenance Due Date Last Done Comments [...] interpreted or resulted by a [facility] or [employer] contracted radiologist. Trung Vargas MD RAD CT documented in this encounter
--- OUTSIDE RECORDS SUMMARY | 2024-01-20 09:38 | External Medical Summary | Summary of Care ---
Author Name Unknown Organization [facility] [address] [facility] [address] Phone [phone] Care Team Providers Care Table Cut Off Saw Operator Name Role Phone Johanne Berman PA-C Primary Care Provi betina Reason for Visit * Reason Onset Date Comments Advice 01/19/2024 Sam Encounter Details Date Type Department Care Team (Late st Contact Info) Description 01/19/2024 Telephone Hematology/Oncology [facility] [place] [address] [place] [phone] Trung Vargas MD 200 [facility] [place] [id number] Advice (Sam) Allergies No known active allergiesdocumented as [...] shows bilateral pneumonia. Per the advise of [facility], she arranged for patients transportation to take him to [facility] instead of the endocrinology appt it was originally scheduled for because provider at [facility] feels he needs IV antibiotics. Advised her that we will contact [facility] to make them aware of patients recent treatment and that he is a patient of Dr Mendoza. Asked that she update us when patient is discharged from the hospital. She verbalized understanding. Called [facility] and spoke to Rafaela to make aware patient is coming. * Telephone Encounter - Gabriela Atkins OSA - 01/19/2024 12:40 PM EDT Daughter in law Cinthia is calling to speak with a nurse. Patient just started chemo with DR Vargas. He is in [facility], he has a bad cough and they did an xray. They told her he has pneumonia. Please call her back [phone] documented in this encounter Plan of Treatment Upcoming Encounters Date Type Department Care Team (Late st Contact Info) Description 01/26/2024 8:45 AM EDT Office Visit Hematology/Oncology [place] [address] [place] [address] [phone] Trung Vargas MD 200 [facility] [place] [id number] 01/26/2024 9:15 AM EDT Hem/Onc Treatment Hematology/Oncology Treatment, [place] 200 [place] [phone] Mckenna, Chair 1 Hem Onc Scenery 200 [facility] [place], [place] [address] 02/09/2024 8:00 AM EST Hem/Onc Treatment Hematology/Oncology Treatment, [place] [address] [facility], [place] [phone] Mckenna, Chair 1 Hem Onc [facility] 200 [facility] [place], [place] [address] 02/23/2024 8:00 AM EST Office Visit Hematology/Oncology [facility] 200 [facility], [place] [phone] Virginia Camarena CRNP [address] [place], [place] [address] [address] 02/23/2024 8:30 AM EST Hem/Onc Treatment Hematology/Oncology Treatment, [place] 200 [facility], [place] [phone] Mckenna, Chair 11 Hem Onc Scenery 200 [facility] [place] [address] Health Maintenance Due Date Last Done Comments [...] filedocumented as of this encounter Care Teams Table Cut Off Saw Operator Relationship Specialty Start Date End Date Johanne Berman PA-C [address] [place] Sun [address] PCP - General Physician Stitch Cleaner 09/23/23 documented as of this encounter
[2024-01-20 10:27] VITALS: PULSE 74; RESP 18
--- NOTE | 2024-01-20 12:14 | Cardiology Consultation ---
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 However, as noted the findings are more consistent with his known Mobitz type I with occasional nonconducted PACs. Review of his medication list shows no negative chronotropic agents. In the absence of symptoms, no specific intervention is necessary. I reviewed with the patient the type of symptoms which would prompt further evaluation, including lightheadedness, presyncope, or syncope. Applying an MCOT monitor would provide low utility in the absence of symptoms, since even higher grade heart block would be unlikely to merit a pacemaker in this context in the absence of symptoms. Cardiology follow-up on a as needed basis, recommended that he see Dr. Bo as the patient was evaluated by him initially. History of Present Illness Reason for Consultation: Mobitz I, intermittent Mobitz II Requesting Physician: Hunter Hererra MD Attending Physician: Kash Nieto History of Present Illness 83-year-old man with metastatic colon cancer and chronic Mobitz type I second- degree AV block was admitted yesterday with cough and low-grade fever, incidentally noted on monitor to have possible Mobitz 2 second-degree AV block. He has no significant cardiac history, other than a hospitalization April 2022 for nausea and vertigo during which Mobitz type I second-degree AV block was noted. Dr. Bo evaluated the patient and felt that his symptoms were not being caused by the low-grade heart block, since they were more consistent with vertigo and since his heart rate increased appropriately with any activity. He has not required any cardiology follow-up since that time and has not noted any lightheadedness, presyncope, or syncope. Upon specific inquiry, he denied any of the symptoms prompting his current visit or occurring overnight. Telemetry monitoring shows frequent episodes of Mobitz type I second-degree AV block, with occasional episodes of 2 consecutive P waves without QRS complexes which appear to be Mobitz type I (first beat) followed by a PAC (early and different morphology P wave) which is nonconducted. As result, his heart rate overnight is in the 40-50 bpm range. However, during the day it increases to normal, evaluation after having him walk a short distance showed a heart rate of 88 bpm with only occasional dropped beats. At the time of my evaluation this morning, he felt well and had no somatic complaints and was anxious to return home. Allergies Allergy/AdvReac Type Severity Reaction Status Date / Time hydromorphone [From Dilaudid] Allergy Verified 11/16/23 14:51 morphine AdvReac Severe SEVERE Verified 04/06/22 15:24 CONFUSION folic acid AdvReac Unknown folate Verified 04/07/22 08:59 products~CONTRAINDICATED WITH CHEMO DRUG Home Medications Medication Instructions Recorded Confirmed Type allopurinol 300 mg tablet 150 mg PO QAM 04/06/22 01/19/24 History canagliflozin 100 mg tablet 100 mg PO DAILYBB 04/06/22 01/19/24 History (Invokana) irbesartan 300 mg tablet 300 mg PO QAM 04/06/22 01/19/24 History linagliptin 5 mg tablet (Tradjenta) 5 mg PO QAM 04/06/22 01/19/24 History nifedipine 60 mg tablet,extended 60 mg PO QPM 04/06/22 01/19/24 History release 24 hr potassium chloride 20 mEq 20 meq PO QPM 04/06/22 01/19/24 History tablet,extended release(part/cryst) pravastatin 40 mg tablet 40 mg PO QPM 04/06/22 01/19/24 History cholecalciferol (vitamin D3) 25 25 mcg PO QAM 11/11/23 01/19/24 History mcg (1,000 unit) capsule docusate sodium 100 mg capsule 100 mg PO DAILY PRN constipation 11/11/23 01/19/24 History finerenone 10 mg tablet (Kerendia) 10 mg PO DAILY proteinuria 11/11/23 01/19/24 History metformin 500 mg tablet 500 mg PO BID 11/11/23 01/19/24 History methylcobal 1 dose sublingual QAM 11/11/23 01/19/24 History pyridoxine (vitamin B6) 50 mg 50 mg PO QPM 11/11/23 01/19/24 History tablet vitamins A,C,D-svgb-kvpslj 2 cap PO BID 11/11/23 01/19/24 History [PreserVision AREDS] meclizine 12.5 mg tablet 12.5 mg PO TID PRN Other 01/19/24 01/19/24 History azithromycin 250 mg tablet 250 mg PO Q24H #3 tabs 01/20/24 Rx cefuroxime axetil 500 mg tablet 500 mg PO BID #12 tabs 01/20/24 Rx Patient History Medical History Dyslipidemia Gout Hypertension 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 Bradycardia Diabetes Cardiac conduction disorder Social History Smoking Status: Former smoker Tobacco Type: Cigarettes Hx Alcohol Use: No Hx Substance Use: No Preferred Language: Uzbek Communication Ability: Effective Pharmacy Consultant Required: No Beliefs That Will Affect Care: None Current Living Situation: [facility] Feels Safe at Home: Yes Assistive Devices: None Physical Exam Physical Exam: Elderly white male in no distress. Afebrile. BP 156/70 mmHg. Pulse 88 bpm and regular with occasional missed beats. Respirations 18 and unlabored. Skin: no ecchymoses or generalized lesions. HEENT: unremarkable. Neck: JVP at the clavicle at 90 degrees, no carotid bruits. Lungs: clear. Cardiac: regular rhythm with occasional dropped beats, normal S1-2, no murmur. Abdomen: benign. Extremities: no edema, pulses intact. Neurologic: normal affect and conversation, nonfocal. N Results & Data Laboratory Results Hemoglobin 12.4 with normal white count and platelet count. Normal electrolytes, BUN 19, creatinine 0.98. Magnesium 1.8. Troponin 32.3 and 29.7. Diagnostic Findings ECG on admission showed sinus rhythm with Mobitz type I second-degree AV block, ventricular rate 50 bpm. This is similar to ECGs from last year. Chest x-ray showed cardiomegaly without evidence of CHF, multiple pulmonary nodules felt secondary to metastatic cancer. Chest CT showed similar findings. PG Care Time/CCT Total # of Minutes Spent Total Time Spent with Patient: Total time spent is greater than 50% in coordination of care (as documented) at patient's floor/unit and/or counseling patient: Coding Level of Care Code 95598 IN/OBS CONSULT LVL 3,45M Diagnoses Mobitz type 1 second degree AV block I44.1
[2024-01-20 12:52] VITALS: BP 158/76; O2SAT 96
[2024-01-20] MEDS ORDERED: AZITHROMYCIN 250 MG TAB PO SCH (18:00)
--- NOTE | 2024-01-20 22:24 | Discharge Summary ---
Discharge Summary Date of Service January 20, 2024 Principal Dx & Hospital Course #1 = Principal Diagnosis (1) PNA (pneumonia): Pneumonia Presents with ongoing cough, congestion, low-grade fever over 6 weeks. Has had some night sweats/chills improved with Tylenol consistent with pneumonia CT with bilateral lower lung consolidation suspicious for pneumonia, patient with ongoing cough and low-grade fevers No leukocytosis. PCT is normal No hypoxia MRSA nare ordered Azithromycin/cefepime given on admission. If MRSA nares positive, add vancomycin He is not septic on admission Ct scan was clear aside from mets. Patient will be placed on oral antibiotics as he feels better on 01/19. Patient will complete 7 days of a cephalosporin with cefuoxime and 5 days of azithromycin (2) 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: Stage IV colon cancer Diagnosed 2013. With history of right Cipriano colectomy and adjuvant chemotherapy. Transition care to [facility]. Reinitiation of chemotherapy in 2018. Patient was on irinotecan, Avastin, 5-FU, leukocoria been. Irinotecan was discontinued at the end of 2002, continued on Avastin however this was held due to induction of proteinuria. With known pulmonary metastasis Currently is following [place] [facility] and is on biweekly 5- fluorouracil/oxy Platten treatment No leukocytosis, he is not acutely leukopenic No acute change in management (3) Cardiac conduction disorder: First-degree AV block, Mobitz 1, bradycardia Seen in consultation with cardiology 04/2022. Was noted to have first-degree AV block at baseline and occasional Mobitz 1. - Troponin 32.3, repeat pending EKG: Sinus bradycardia with first-degree AV block. No acute ischemic change. QTc 417 Hypertension Home antihypertensives continued, renal function is at baseline (4) Diabetes: Metformin held Basal bolus insulin while inpatient Type II DM/heart healthy diet (5) Gout: Continue allopurinol (6) Spleen hematoma-closed: Chronic Splenic Hematoma CTchest/abdomen/pelvics with [place] [facility] Multiple bilateral pulmonary nodules and masses consistent with metastatic disease. Indeterminate adrenal nodules. CTchest on admission redemonstrates splenic fluid collection. Hemoglobin is within 1 point of hemoglobin at that time, currently 11.9. Low suspicion for active bleed/extravasation. Will admit and monitor hemoglobin - CT-A/P on admit: 1. Small subcapsular splenic hematoma. 2. Multifocal consolidative and nodular opacities at the lung bases the appearance of which is most concerning for metastatic disease. 3. Colonic diverticulosis without acute diverticulitis. - 05/2023 CT report --> Subscapular splenic chronic hematoma present at that time. This is longstanding and chronic without recent trauma or hemoglobin drop. Will admit and follow serial H&H, no acute intervention is indicated at this time, appears stable over 8 months No abdominal pain on exam, abdomen is soft Plan Demand ischemia HS trops 32.3/29.7 Treatment: pending cardiology consult, kae, procardia XL, tele monitoring Risk Factor(s): Mobitz 2 heart block, PNA, age Mobitz type 1 evaluated by cardiology. No further intervention. Admission HPI Per Admitting Provider Mckenna is an 83-year-old male with a prior medical history of diabetes, hy pertension, gout, hyperlipidemia, dizziness with chronic Mobitz 1 heart block on prior admission, metastatic colon cancer who presents to the ER with cough and congestion for 6 weeks but continued low-grade fevers of around 100. He has no abdominal pain. He has been on chemotherapy. Reviewed with ER provider. CT of the chest shows a nonspecific hypodensity surrounding the spleen which is nonspecific but which may represent hematoma. This was compared to imaging at [facility] and this was noted on prior CT scan and stable. No recent trauma. CT does show evidence of multifocal nodularity conserving metastatic disease, and consolidative density in the bilateral lower lung suspicious for pneumonia. Mckenna reports for the last five to six weeks he has had constant cough, conestion and a little fatigue and shortness of breath that feels similar to prior episodes of pneumonia. Persistent over the last few weeks, and the cough seems to have gradually worsened and this week has a gradually climbing temperature now around 100*F daily. Came to the ER as he was worried about pneumonia. Night sweats a few times in the last week which has improved with tylenol. Last took tylenol 2x 500mg pills last evening. CHemo every 2 weeks 5FU and just started oxyplatin CEA and scans have showed increasing disease [place] [facility], previously followed with [facility] in [place]. Does not have a PCP yet, sees a Rhonda PA currently as had just reloacted [facility]. Would like to meet with Case Management to talk about a PCP followup. NO recent injuries, falls, or trauma to his knowledge. Per patients daughter did meet with Dr. Vargas after the scan --> not sure about the details but thinks this was going to be compared to previous scans and was not felt to be urgent/emergent No abdominal pain, nausea, vomiting, diarrhea. Pt is concerned about vancomycin because he notes he almost was overdosed on vancomycin many years ago but is not clear on the details of what type of damage this was. Is not sure if there was kidney damage at the time, just knows he was told he overdosed and was a few minutes from due to it at the time. Medical History: Reviewed Medications: Reviewed Surgical History: Reviewed Family history: Reviewed Allergies: Reviewed. Social History: No tobacco/regular ETOH Code Status: DNR/DNI May call daughter Socorro [phone] Discharge Exam General: A&Ox3. NAD. Cooperative. HEENT: Atraumatic, normocephalic. Vision and hearing grossly intact. Pupils equal and reactive to light Pulm: scattered rhonchi. Symmetrical chest rise. No increased work of breathing. No respiratory distress. Cardiac: RRR, -mrg. Radial pulses intact and symmetrical. Abdominal: Nontender, nondistended, soft. BS present. Extremities: Warm and dry Discharge Plan Discharge Items Patient Disposition: Home - Self-Care Reason For Visit: PNA Discharge Diagnosis: Pneumonia Activity: Resume your previous activity Non-emergency contact: Primary Care Provider Call non-emergency contact if: you have any medication questions Follow-up/Referrals: Niecy Churchill M.D. [Primary Care Provider] - Diet: Carb Consistent or DM2 Addtl Attending Provider Instructions: Good morning Mr. Sequeira, You were seen for a possible pneumonia. Continue azithromycin tomorrow morning for 3 more days Continue cefuroxime tonight, continue for 6 more days. You were also seen by cardiology as you had a new finding in your EKG which assesses the electrical activity of your heart. You had a Mobitz Type 1 block. However, it appears you do not have any symptoms so likely no treatment required. We will set you up with a primary care provider. Recommend followup with PCP in 1-2 weeks. Please keep your other appointments. Best regards, Kash Nieto Pending Studies at Discharge: No Stand-Alone Forms: My [facility], Smoking Cessation Medications and DC Order Prescriptions: New azithromycin 250 mg Tablet 250 mg PO Q24H Qty: 3 0RF cefuroxime axetil 500 mg tablet 500 mg PO BID Qty: 12 0RF Rx Instructions: first dose tonight Continued docusate sodium 100 mg capsule 100 mg PO DAILY PRN (Reason: constipation) Kerendia 10 mg tablet 10 mg PO DAILY metformin 500 mg tablet 500 mg PO BID methylcobal 2,500 mcg tablet 1 dose sublingual QAM vitamins A,C,[id number] [PreserVision AREDS] 2 cap PO BID pyridoxine (vitamin B6) 50 mg tablet 50 mg PO QPM cholecalciferol (vitamin D3) 25 mcg (1,000 unit) capsule 25 mcg PO QAM pravastatin 40 mg Tablet 40 mg PO QPM potassium chloride 20 mEq tablet,ER particles/crystals 20 meq PO QPM nifedipine 60 mg Tablet Extended Release 24hr 60 mg PO QPM allopurinol 300 mg Tablet 150 mg PO QAM irbesartan 300 mg Tablet 300 mg PO QAM Tradjenta 5 mg Tablet 5 mg PO QAM Invokana 100 mg Tablet 100 mg PO DAILYBB meclizine 12.5 mg tablet 12.5 mg PO TID PRN (Reason: Other) Discharge Orders: Discharge Order (Routine); Ordered 01/20/24 Ordered By: Kash Nieto Admission Data Admit Date/Time: 01/19/24 19:53 Attending Provider: Kash Nieto Admit Provider: Hunter Herrera Primary Care Provider: Niecy Churchill Other Providers: Hunter Herrera; Esmer Hodges Other Interventions: Discharge Summary Assessment (RN) Last Done: 01/20/24 12:49 Hospital Stay Data Consultations 01/19/24 17:54 ED Decision to Admit Stat 01/19/24 20:44 Consult Cardiology Routine Diagnostic Imagining Performed 01/19/24 15:13 CT chest diagnostic w con Stat 01/19/24 16:45 CT abd pelvis IV con only Stat Pending Results Patient Have Any Pending Studies at Discharge: No Discharge Instructions Given to Patient (Per Discharging Provider) Good morning Mr. Sequeira, You were seen for a possible pneumonia. Continue azithromycin tomorrow morning for 3 more days Continue cefuroxime tonight, continue for 6 more days. You were also seen by cardiology as you had a new finding in your EKG which assesses the electrical activity of your heart. You had a Mobitz Type 1 block. However, it appears you do not have any symptoms so likely no treatment required. We will set you up with a primary care provider. Recommend followup with PCP in 1-2 weeks. Please keep your other appointments. Best regards, Kash Nieto Total Time Total Time Spent Total Time Spent (In Minutes): 32 Coding Level of Care Code 19555 INP/OBS DISCH >30 MIN Diagnoses PNA (pneumonia) J18.9 Laterality: unspecified laterality Pneumonia type: due to unspecified organism 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 Encounter type: initial encounter
--- NOTE | 2024-01-21 08:54 | Electrocardiogram Report ---
Test Reason : Blood Pressure : */* mmHG Vent. Rate : 50 BPM Atrial Rate : 50 BPM P-R Int : 320 ms QRS Dur : 84 ms QT Int : 458 ms P-R-T Axes : 47 20 59 degrees QTcB Int : 417 ms Sinus bradycardia with 2nd degree A-V block (Mobitz I) with junctional and ventriicular escape beats Diffuse Minor Nonspecific T wave abnormality Abnormal ECG When compared with ECG of 07-Apr-2022 05:38, Sinus rhythm with 2nd degree A-V block (Mobitz I) now present Nonspecific T wave abnormality now present Confirmed by Talib Virgen ([id number]) on 01/21/2024 8:53:31 AM Referred By: [facility] Confirmed By: Talib Virgen
== END 2024-01-20 12:33 | disposition home or self-care (01) | DRG 194 ==
LOC: ED 13:15 → EDINP 19:53 → SUATTDRO 19:53 → EDINP 22:17